=== PATIENT | female | born 1930 | race Caucasian/White ===

== ENCOUNTER → 2018-09-18 | Outpatient (CLI) | payer MEDICARE, BC | LOC: RAD 09:32 | PROVIDERS: ATTEND Family Medicine | DX: Z12.31 Encounter for screening mammogram for malignant neoplasm of breast (principal) | CPT/HCPCS: 77067 ==

== ENCOUNTER → 2019-09-21 | Outpatient (CLI) | payer MEDICARE, BC ==
--- NOTE | 2019-09-21 12:28 | Diagnostic Imaging Report ---
INDICATION: Routine screening. COMPARISON: Comparison is made with prior mammograms from 09/18/2018 and 08/28/2017. TECHNIQUE: 2-D and 3-D bilateral screening mammography was performed. The current study was also evaluated with a Computer Aided Detection (CAD) system. 3-D tomosynthesis was also performed and reviewed. FINDINGS: Both breasts are heterogeneously dense, limiting the sensitivity of mammography. There are benign calcifications in both breasts. No mass or malignant-appearing microcalcifications are seen. Axillae are unremarkable. IMPRESSION: No mammographic features suspicious for malignancy are identified. ACR BI-RADS Category 2: Benign findings. Result letter will be mailed to the patient. Note: At least 10% of breast cancer is not imaged by mammography. Dictated by: Dictated on workstation # [id number]
== END ==
LOC: RAD 09:44
PROVIDERS: ATTEND Family Medicine
DX: Z12.31 Encounter for screening mammogram for malignant neoplasm of breast (principal)
CPT/HCPCS: 77067

== ENCOUNTER → 2020-09-22 | Outpatient (CLI) | payer MEDICARE, BC ==
--- NOTE | 2020-09-22 14:53 | Diagnostic Imaging Report ---
INDICATION: Routine screening. Comparison is made with prior mammogram 09/21/2019 and 09/18/2018. 2-D and 3-D bilateral screening mammography was performed with CAD. Both breasts remain heterogeneously dense, limiting the sensitivity of mammography. There are scattered benign calcifications. No mass or malignant appearing microcalcifications are seen. Axillae are unremarkable. IMPRESSION: BI-RADS Category 2 No mammographic features suspicious for malignancy are identified. ACR BI-RADS Category 2: Benign findings. Result letter will be mailed to the patient. Note: At least 10% of breast cancer is not imaged by mammography. Dictated by: Dictated on workstation # [id number]
== END ==
LOC: RAD 10:09
PROVIDERS: ATTEND Family Medicine
DX: Z12.31 Encounter for screening mammogram for malignant neoplasm of breast (principal)
CPT/HCPCS: 77063; 77067

== ENCOUNTER → 2021-09-24 | Outpatient (CLI) | payer MEDICARE, BC ==
--- NOTE | 2021-09-24 11:49 | Diagnostic Imaging Report ---
INDICATION: Routine screening. Comparison is made with prior mammogram 09/22/2020 and 09/21/2019. 2-D and 3-D bilateral screening mammography was performed with CAD. Scattered fibroglandular densities are identified bilaterally. Benign calcifications are noted. No mass or malignant-appearing microcalcifications are seen. Axillae are unremarkable. IMPRESSION: No mammographic features suspicious for malignancy are identified. BI-RADS Category 2 ACR BI-RADS Category 2: Benign findings. Result letter will be mailed to the patient. Note: At least 10% of breast cancer is not imaged by mammography. Dictated by: Dictated on workstation # [id number]
== END ==
LOC: RAD 09:41
PROVIDERS: ATTEND Family Medicine
DX: Z12.31 Encounter for screening mammogram for malignant neoplasm of breast (principal)
CPT/HCPCS: 77063; 77067

== ENCOUNTER → 2022-03-08 | Outpatient (CLI) | payer MEDICARE, BC ==
--- NOTE | 2022-03-08 17:04 | Diagnostic Imaging Report ---
INDICATION: Pain, fall. COMPARISON: None available. TECHNIQUE: Two radiographs of the right hip dated March 08, 2022. FINDINGS: Moderate degenerative changes within the partially visualized lower lumbar spine. Mild degenerative changes involving the right sacroiliac joint. No acute fracture or dislocation. Severe degenerative changes of the right hip with severe superior joint space narrowing and sclerosis and irregularity of the articular surfaces. Mild osteophyte formation. The pubic symphysis is intact. IMPRESSION: No acute osseous abnormality with advanced degenerative changes, including severe degenerative changes involving the right hip and partially visualized right lower lumbar spine. Dictated by: Dictated on workstation # [id number]
== END ==
LOC: RAD 15:14
PROVIDERS: ATTEND Family Medicine
DX: M16.11 Unilateral primary osteoarthritis, right hip (principal); W19.XXXA Unspecified fall, initial encounter
CPT/HCPCS: 73502

== ENCOUNTER → 2022-03-19 | Outpatient (CLI) | payer MEDICARE, BC | LOC: ORTHO 12:40 | PROVIDERS: ATTEND Orthopaedic Surgery | DX: M16.11 Unilateral primary osteoarthritis, right hip (principal) | CPT/HCPCS: 99203 ==

== ENCOUNTER → 2022-03-19 | Outpatient (CLI) | payer MEDICARE, BC ==
--- NOTE | 2022-03-19 15:28 | Diagnostic Imaging Report ---
PROCEDURE: US right lower extremity venous. TECHNIQUE: Multiple real-time grayscale images were obtained over the right lower extremity in various projections. Additional spectral analysis and color Doppler duplex images were also obtained. INDICATION: Right lower leg swelling. FINDINGS: The unilateral right lower extremity venous Doppler ultrasound study was normal. There is patency of the femoropopliteal deep venous system showing normal color flow and normal compressibility. The major calf veins are also patent. No deep or superficial thrombus is identified. No fluid collection is demonstrated. IMPRESSION: Normal negative unilateral right lower extremity venous Doppler and ultrasound exam. Dictated by: Dictated on workstation # [id number]
== END ==
LOC: RAD 14:30
PROVIDERS: ATTEND Orthopaedic Surgery
DX: R22.41 Localized swelling, mass and lump, right lower limb (principal)

== ENCOUNTER → 2022-05-02 | Outpatient (CLI) | payer MEDICARE, BC ==
[2022-05-02 11:12] LABS: BASOPHILS % (AUTO) 0 % (0-10); EOSINOPHILS # (AUTO) 0.4 10^3/uL (0.0-0.3); EOSINOPHILS % (AUTO) 6 % (0-10); HEMATOCRIT 31 % (35-52); HEMOGLOBIN 10.3 g/dL (11.5-16.0); LYMPHOCYTES # (AUTO) 0.5 10^3/uL (1.0-4.0); LYMPHOCYTES % (AUTO) 9 % (12-44); MEAN CORPUSCULAR HEMOGLOBIN 28 pg (25-34); MEAN CORPUSCULAR HGB CONC 34 g/dL (32-36); MEAN CORPUSCULAR VOLUME 82 fL (80-99); MEAN PLATELET VOLUME 10.2 fL (9.0-12.2); MONOCYTES # (AUTO) 0.9 10^3/uL (0.0-1.0); MONOCYTES % (AUTO) 14 % (0-12); NEUTROPHILS # (AUTO) 4.3 10^3/uL (1.8-7.8); NEUTROPHILS % (AUTO) 71 % (42-75); PLATELET COUNT 397 10^3/uL (130-400); WHITE BLOOD COUNT 6.1 10^3/uL (4.3-11.0)
[2022-05-02 11:20] LABS: BILIRUBIN,URINE NEGATIVE (NEGATIVE); CLARITY,URINE CLEAR; COLOR,URINE YELLOW; GLUCOSE, URINE (UA) NEGATIVE (NEGATIVE); KETONES,URINE TRACE (NEGATIVE); LEUKOCYTE ESTERASE ,URINE NEGATIVE (NEGATIVE); NITRITE,URINE NEGATIVE (NEGATIVE); PH,URINE 7.5 (5-9); PROTEIN,URINE NEGATIVE (NEGATIVE)
[2022-05-02 11:30] LABS: CALCIUM 9.3 MG/DL (8.5-10.1); CREATININE SERUM 0.66 MG/DL (0.60-1.30); POTASSIUM 4.3 MMOL/L (3.6-5.0)
[2022-05-02 11:33] LABS: BACTERIA,URINE NEGATIVE /HPF
[2022-05-02 11:39] LABS: PROTHROMBIN TIME PATIENT 13.6 SEC (12.2-14.7)
--- NOTE | 2022-05-02 12:58 | Diagnostic Imaging Report ---
EXAMINATION: Chest 2 view HISTORY: PRE OP COMPARISON: None available. FINDINGS: Heart size and pulmonary vasculature are normal. The lungs are clear without consolidation, pleural effusion, or pneumothorax. Degenerative changes of the thoracic spine. Osseous structures are otherwise intact. IMPRESSION: 1. No acute radiographic abnormality in the chest. Dictated by: Dictated on workstation # [id number]
--- NOTE | 2022-05-02 16:12 | Diagnostic Imaging Report ---
INDICATION: Right hip pain. EXAMINATION: AP and oblique views of the right hip were obtained. COMPARISON: 03/08/2022. FINDINGS: No acute fracture is seen. There is advanced degenerative change of the right hip with severe joint space narrowing and osteophyte formation with subchondral sclerosis. There is partial collapse of the femoral head, underlying avascular necrosis cannot be excluded. IMPRESSION: Severe chronic change of the right hip with joint space narrowing and subchondral sclerosis and some femoral head irregularity and clots, this may be due to underlying degenerative change or underlying avascular necrosis. MRI may be helpful if clinically warranted. Dictated by: Dictated on workstation # [id number]
== END ==
LOC: ORTHO 09:46
PROVIDERS: ATTEND Orthopaedic Surgery
DX: Z01.818 Encounter for other preprocedural examination (principal); S72.001A Fracture of unspecified part of neck of right femur, initial encounter for closed fracture; X58.XXXA Exposure to other specified factors, initial encounter
CPT/HCPCS: 71046; 73502; 80048; 81000; 85025; 85610; 85730; 93005; G0463; 36415; 99213

== ENCOUNTER 2022-05-07 05:33 | Outpatient (CLI) | payer MEDICARE, BC ==
[~2022-05-07] VITALS: Ht 154.9 cm; Wt 47.2 kg
[2022-05-07] MEDS ORDERED: SIMV20TA26 PO (15:53)
[2022-05-07] MEDS ORDERED: AMLO-250 PO (15:53)
[2022-05-07] MEDS ORDERED: OMEP20CA18 PO (15:53)
[2022-05-07] MEDS ORDERED: LATA7.5D OP (15:53)
[2022-05-07] MEDS ORDERED: MUPI15CR11 TP (15:53)
[2022-05-07] MEDS ORDERED: TR1O15 TP (15:53)
[2022-05-07] MEDS ORDERED: BUME1TAB8 PO (15:53)
[2022-05-07] MEDS ORDERED: DORZ10DR8 OP (15:53)
[2022-05-07] MEDS ORDERED: PRD20T PO (15:53)
== END 2022-05-08 16:18 | disposition home or self-care (01) ==
LOC: PREOP 05:33
PROVIDERS: ATTEND Orthopaedic Surgery
DX: Z01.818 Encounter for other preprocedural examination (principal)

== ENCOUNTER 2022-05-13 07:44 | Day surgery (SDC) | payer MEDICARE, BC ==
[~2022-05-13] VITALS: Ht 154.9 cm; Wt 47.2 kg
[~2022-05-13 07:44] MED LIST: AMLO-250 PO; BUME1TAB8 PO; DORZ10DR8 OU; LATA7.5D OP; MUPI15CR11 TP; OMEP20CA18 PO; PRD20T PO; SIMV20TA26 PO; TR1O15 TP
[2022-05-13 07:50] VITALS: BP 170/72
[2022-05-13] MEDS ORDERED: TRANEXAMIC ACID 3,000 MG/150 ML NS IRRIGATION IR ONE ×2 (08:00)
[2022-05-13] MEDS ORDERED: ceFAZolin 1 GM/NS 50 ML (SDC/OR ONLY) IV ONE ×2 (08:15)
[2022-05-13] MEDS ORDERED: LACTATED RINGERS 1,000 ML IV PRN (08:45)
[2022-05-13] MEDS ORDERED: ceFAZolin INJECTION 1,000 MG in NS (IVPB) 50 ML IV ONE (08:45)
[2022-05-13] MEDS ORDERED: ONDANSETRON 4 MG/2 ML (SDV) Z0FRAN ONE (09:35)
[2022-05-13] MEDS ORDERED: LIDOCAINE PF 2% 5 ML (XYLOCAINE) VIAL ONE (09:35)
[2022-05-13] MEDS ORDERED: proPOfol 200 MG/20 ML (DIPRIVAN) VIAL IV ONE (09:35)
[2022-05-13] MEDS ORDERED: fentaNYL INJ 100 MCG/2 ML AMP ONE (09:35)
[2022-05-13] MEDS ORDERED: TRAM50TA3 PO (10:12)
== END 2022-05-13 10:15 | disposition home or self-care (01) ==
LOC: SDC 07:44 → EDSTATUS 11:10
PROVIDERS: ATTEND Orthopaedic Surgery
DX: M16.11 Unilateral primary osteoarthritis, right hip (principal); Z53.9 Procedure and treatment not carried out, unspecified reason
CPT/HCPCS: 86850; 86900; 86901; 87081

== ENCOUNTER → 2022-05-16 | Outpatient (CLI) | payer MEDICARE, BC ==
[~2022-05-16] MED LIST changes: +ASPI-1238 PO; +CALC600T91 PO; +GARL500C2 PO; +LATA2.5D19 OU; +MULT-1136 PO; +OXC5T PO; +TRAM50TA3 PO
== END | disposition home or self-care (01) ==
LOC: PREOP 05:31
PROVIDERS: ATTEND Orthopaedic Surgery
DX: Z01.818 Encounter for other preprocedural examination (principal)

== ENCOUNTER 2022-05-17 08:46 | Outpatient (RCR) | payer MEDICARE, BC ==
[2022-05-10 11:00] VITALS: BP 157/60
[~2022-05-17 08:46] MED LIST changes: -ASPI-1238 PO; -CALC600T91 PO; -GARL500C2 PO; +IRON SUCROSE 200 MG/10 ML (VENOFER) VIAL IV ONE; -LATA2.5D19 OU; -MULT-1136 PO; -OXC5T PO
[2022-05-17 09:12] VITALS: BP 139/67
[2022-05-17] MEDS ORDERED: IRON SUCROSE 200 MG/10 ML (VENOFER) VIAL IV ONE (09:15)
[2022-05-20] MEDS ORDERED: LATA2.5D19 OU (12:30)
[2022-05-20] MEDS ORDERED: MULT-1136 PO (12:30)
[2022-05-20] MEDS ORDERED: TRAM50TA3 PO (12:30)
[2022-05-20] MEDS ORDERED: CALC600T91 PO (12:30)
[2022-05-20] MEDS ORDERED: GARL500C2 PO (12:30)
[2022-05-22] MEDS ORDERED: OXC5T PO (10:23)
[2022-05-22] MEDS ORDERED: ASPI-1238 PO (10:23)
[2022-05-30] MEDS ORDERED: CYAN-41 PO (05:17)
[2022-05-30] MEDS ORDERED: CELE100C PO (05:17)
== END 2022-05-27 | disposition home or self-care (01) ==
LOC: SDC 08:46
PROVIDERS: ATTEND Family Medicine
DX: D50.8 Other iron deficiency anemias (principal)
CPT/HCPCS: 96365

== ENCOUNTER 2022-05-20 05:54 | Inpatient (IN) | payer MEDICARE, BC ==
[~2022-05-20] VITALS: Ht 152.4 cm; Wt 56.3 kg
[2022-05-20] VITALS (11 sets, daily range): BP systolic 148–178; BP diastolic 62–76
[~2022-05-20 05:54] MED LIST changes: -IRON SUCROSE 200 MG/10 ML (VENOFER) VIAL IV ONE
[2022-05-20] MEDS ORDERED: ceFAZolin INJECTION 1,000 MG in NS (IVPB) 50 ML IV ONE (06:30)
[2022-05-20] MEDS ORDERED: SODIUM CHLORIDE 0.9% IRRIGATIO 150 ML, TRANEXAMIC ACID INJECTION 3,000 MG IR ONE ×2 (07:00)
[2022-05-20] MEDS: LACTATED RINGERS 1,000 ML IV PRN ×2 (07:05→08:30)
--- NOTE | 2022-05-20 07:09 | Progress Note-Pre Operative ---
Pre-Operative Progress Note Date of Available H&P: May 20, 2022 Date H&P Reviewed: May 02, 2022 Time H&P Reviewed: 07:05 History & Physical: H&P Reviewed, Patient Examed, No changes noted Pre-Operative Diagnosis: Right Hip Primary Osteoarthritis NOAH FORRESTER MD May 20, 2022 07:09
[2022-05-20] MEDS ORDERED: fentaNYL INJ 100 MCG/2 ML AMP ONE (07:19)
[2022-05-20 07:30] LABS: POTASSIUM 3.7 MMOL/L (3.6-5.0)
[2022-05-20 07:31] LABS: CALCIUM 8.9 MG/DL (8.5-10.1)
[2022-05-20 07:35] LABS: CREATININE SERUM 0.63 MG/DL (0.60-1.30)
[2022-05-20] MEDS ORDERED: ROCURONIUM 10 MG/ML 5 ML SYRINGE IV ONE (08:05)
[2022-05-20] MEDS ORDERED: ONDANSETRON 4 MG/2 ML (SDV) Z0FRAN ONE (08:05)
[2022-05-20] MEDS ORDERED: proPOfol 200 MG/20 ML (DIPRIVAN) VIAL IV ONE (08:05)
[2022-05-20] MEDS ORDERED: LIDOCAINE PF 2% 5 ML (XYLOCAINE) VIAL ONE (08:05)
[2022-05-20] MEDS ORDERED: NEOSTIGMINE (BLOXIVERZ ) 1 MG/1ML 10 ML VIAL ONE (09:15)
[2022-05-20] MEDS ORDERED: GLYCOPYRROLATE 0.2 MG/ML (ROBINUL) 2 ML VIAL ONE (09:15)
[2022-05-20] MEDS ORDERED: ROPIVACAINE 5MG/ML 30ML VIAL ONE (09:31)
[2022-05-20] MEDS ORDERED: SEVOFLURANE (ULTANE) 15 ML INHAL SOLN ONE (09:33)
--- NOTE | 2022-05-20 09:38 | Operative Report - Ortho ---
Operative Report Surgeon (s)/Wringer And Setter (s) Surgeon NOAH FORRESTER MD Wringer And Setter n/a Pre-Operative Diagnosis Right Hip Primary Osteoarthritis Post-Operative Diagnosis same Operative Report Date of Procedure: May 20, 2022 Name of Procedure Performed: Right Total Hip Arthroplasty Description & Findings After obtaining informed consent and marking the patient in the preoperative holding area, the patient did receive antibiotics and was taken to the operating room. General anesthesia was induced and patient was positioned in the lateral decubitus position with the right side up. Right lower extremity was prepped and draped in the usual sterile fashion. Surgical timeout was taken. Posterolateral approach was utilized. Capsule and external rotators were taken down in one layer. Hip was dislocated without difficulty. Femoral neck osteotomy was performed and femoral head was removed. Acetabulum was exposed. Labrum and soft tissue was removed from the acetabulum. Sequential reaming was began beginning with a 42 mm reamer and reaming to a 46 mm. 46 mm trial was placed and had good fit. Trial was removed and the acetabulum was lavaged with normal saline; a 46 mm cup was impacted into place and had excellent press fit. A polyethylene liner was put into place and impacted to lock; locking was verified with a freer. Attention was turned to the femoral side, a cookie cutter osteotome was used to removed bone near the greater trochanter. Canal finder was inserted followed by the lateralizing reamer. Sequential broaching was began with a 0 and was broached to a 2. Trial 127 degree neck and neutral 28 mm head were put into place. Leg lengths were grossly equal; the hip was stable in position of sleep, and stable in flexion and internal rotation. This was accepted. Hip was dislocated. Trial components were removed and the canal was irrigated. A size 2 Accolade II was impacted into place and set at the same level as the broach. A neutral 28 mm metal head was impacted onto the arce taper of the stem. Hip was once again located and found to have grossly equal leg lengths with stability in position of sleep as well as flexion and internal rotation. Dilute betadine soak was performed. Hip was irrigated. Tranexamic acid was applied for hemostasis. The fascial layer was closed with #2 StrataFix. The subcutaneous layer was closed with 2-0 Vicryl. Skin was closed with joshua. Wound was dressed with xeroform, 4x4s, ABD, and tape. Patient was placed in abduction pillow and transferred to his hospital bed without difficulty and was stable to the recovery room. Anesthesia Type General Estimated Blood Loss minimal Specimen(s) collected/removed None NOAH FORRESTER MD May 20, 2022 09:38
[2022-05-20] MEDS ORDERED: ACETAMINOPHEN 500 MG TAB (TYLENOL) PO PRN (09:45)
[2022-05-20] MEDS ORDERED: ONDANSETRON 4 MG/2 ML (SDV) Z0FRAN IV PRN (09:45)
[2022-05-20] MEDS ORDERED: ceFAZolin INJECTION 1,000 MG in NS (IVPB) 50 ML IV SCH (09:45)
[2022-05-20] MEDS ORDERED: BISACODYL 5 MG (DULCOLAX) TABLET PO PRN (09:45)
[2022-05-20] MEDS ORDERED: 1/2 NS IV SOLUTION 1,000 ML IV ONE (11:12)
[2022-05-20] MEDS: morphine INJ 4 MG/ML 1 ML (VIAL/SYRINGE) IVP PRN ×4 (11:18→23:51)
[2022-05-20] MEDS: 1/2 NS IV SOLUTION 1,000 ML IV SCH (11:18)
[2022-05-20] MEDS ORDERED: FLU QUAD HIGH DOSE 240 MCG/0.7 ML 2022-23 (FLUZONE) IM ONE (11:45)
--- NOTE | 2022-05-20 11:59 | Physical Therapy Evaluation ---
PT Evaluation-General Medical Diagnosis Admission Date May 20, 2022 at 05:54 Medical Diagnosis: right SOPHIA Onset Date: May 20, 2022 Therapy Diagnosis Therapy Diagnosis: impaired mobility/weakness Precautions Precautions/Isolations: Fall Prevention, Standard Precautions Weight Bear Status Right Lower Extremity: Right Weight Bearing/Tolerated Left Lower Extremity: Left Full Weight Bearing Referral Physician: Roger Reason for Referral: Evaluation/Treatment Medical History Current History s/p elective right THR Reviewed History: Yes Social History Home: Single Level Current Living Status: Alone Entry Into Home: Stairs With Railing PT Steps Into Home: 2 Prior Prior Level of Function SCALE: Activities may be completed with or without assistive devices. 7-Tbuvxqymmz-covwvdm completes the activity by him/herself with no assistance from a helper. 5-Set-up or Clean-up Assistance-helper sets up or cleans up; patient completes activity. Verdon assists only prior to or following the activity. 4-Supervision or Touching Assistance-helper provides verbal cues and/or touching/steadying and/or contact guard assistance as patient completes activity. Assistance may be provided throughout the activity or intermittently. 3-Partial/Moderate Assistance-helper does LESS THAN HALF the effort. Verdon lifts, holds or supports trunk or limbs, but provides less than half the effort. 2-Substantial/Maximal Assistance-helper does MORE THAN HALF the effort. Verdon lifts or holds trunk or limbs and provides more than half the effort. 9-Rttgmvjsi-hnvlmd does ALL the effort. Patient does none of the effort to complete the activity. Or, the assistance of 2 or more helpers is required for the patient to complete the activity. If activity was not attempted, code reason: 7-Patient Refused. 9-Not Applicable-not attempted and the patient did not perform the activity before the current illness, exacerbation or injury. 10-Not Attempted due to Environmental Limitations-(lack of equipment, weather restraints, etc.). 88-Not Attempted due to Medical Conditions or Safety Concerns. Bed Mobility: 6 Transfers (B,C,W/C): 6 Gait: 6 Stairs: 6 Indoor Mobility (Ambulation): Independent Stairs: Independent Prior Devices Use: Walker PT Evaluation-Current Subjective Patient agrees to PT. Pain Numeric Pain Scale: 5-Moderate Pain Location: Right Location Body Site: Hip Pain Description: Acute Objective Patient Orientation: Normal For Age Attachments: Hart Catheter, IV ROM/Strength ROM Lower Extremities right hip precautions/left LE WFL Strength Lower Extremities right LE 3/5 grossly/left LE 3+/5 grossly Integumentary/Posture Integumentary refer to nursing notes Bladder Incontinence: Hart Cath Posture WFL Neuromuscular (Tone, Coordination, Reflexes) grossly intact Sensory Vision: Wears Glasses Hearing: Functional Transfers Lying to Sitting/Side of Bed(Q: 3 Sit to Stand (QC): 4 Chair/Obw-ka-Dsvup Xfer(QC): 4 Gait Mode of Locomotion: Walk Anticipated Mode of Locomotion: Walk Walk 10 feet (QC): 4 Walk 50 ft with 2 Turns(QC): 4 Distance: 50' Gait Assistive Device: FWW Comments/Gait Description slow, antalgic Balance Sitting Static: Normal Sitting Dynamic: Normal Standing Static: Fair Standing Dynamic: Fair Assessment/Needs Patient will benefit from skilled PT to address functional strength and mobility to improve current LOF. Patient is currently at minimal to CGA/SBA with all mobility Rehab Potential: Fair PT Retirement Goals Mines Inspector Goals PT Mines Inspector Goals Time Frame: Jun 08, 2022 Roll Left & Right (QC): 6 Sit to Lying (QC): 6 Lying-Sitting on Side/Bed(QC): 6 Sit to Stand (QC): 6 Chair/Nem-fs-Ijxlu Xfer(QC): 6 Toilet Transfer (QC): 6 Walk 10 feet (QC): 6 Walk 50ft with 2 Turns (QC): 6 Walk 150 ft (QC): 6 Walking 10ft on Uneven Surface: 6 1 Step (curb) (QC): 6 4 Steps (QC): 6 PT Plan Problem List Problem List: Activity Tolerance, Functional Strength, Safety, Balance, Gait, Transfer, Bed Mobility Treatment/Plan Treatment Plan: Continue Plan of Care Treatment Plan: Bed Mobility, Education, Functional Activity Keaton, Functional Strength, Gait, Safety, Therapeutic Exercise, Transfers Treatment Duration: Jun 08, 2022 Frequency: 11 times per week Estimated Hrs Per Day: .5 hour per day Patient and/or Family Agrees t: Yes Time/GCodes Time In: 1133 Time Out: 1150 Total Billed Treatment Time: 17 Total Billed Treatment 1 visit EVModC 17 min PETTY ARMIJO PT May 20, 2022 11:59
[2022-05-20] MEDS ORDERED: MULT-1136 PO (12:30)
[2022-05-20] MEDS ORDERED: LATA2.5D19 OU (12:30)
[2022-05-20] MEDS ORDERED: CALC600T91 PO (12:30)
[2022-05-20] MEDS ORDERED: GARL500C2 PO (12:30)
[2022-05-20] MEDS ORDERED: TRAM50TA3 PO (12:30)
[2022-05-20] MEDS: ceFAZolin INJECTION 1,000 MG in NS (IVPB) 50 ML IV SCH ×2 (14:29→21:15)
--- NOTE | 2022-05-20 15:38 | Diagnostic Imaging Report ---
INDICATION: Right hip pain. Postop. FINDINGS: AP pelvis. There is total arthroplasty of the right hip. Femoral and acetabular components are in good position. No bony fractures. There are skin joshua present. IMPRESSION: Satisfactory appearing post op arthroplasty right hip. Dictated by: Dictated on workstation # [id number]
[2022-05-20] MEDS: ASPIRIN E.C. 81 MG (ECOTRIN) TAB PO SCH (17:14)
[2022-05-20] MEDS ORDERED: PANTOPRAZOLE 20 MG TABLET (PROTONIX) PO SCH (18:00)
[2022-05-20] MEDS ORDERED: AtorvaSTATin TABLET 10 MG TABLET PO SCH (21:00)
[2022-05-20] MEDS: DOCUSATE SODIUM 100 MG (COLACE) CAP PO SCH (21:15)
[2022-05-20] MEDS: CELECOXIB 100 MG (CeleBREX) CAP PO SCH (21:15)
[2022-05-20] MEDS: DORZOLAMIDE 2% 10 ML BTL (TRUSOPT) OU SCH (21:16)
[2022-05-20] MEDS: LATANOPROST 0.005% (XALATAN) OPHTH SOLN 2.5 ML OU SCH (21:16)
[2022-05-20] MEDS: TIMOLOL MALEATE 0.5% 5 ML (TIMOPTIC) BTL OU SCH (21:16)
[2022-05-21 00:30] VITALS: BP 133/63
[2022-05-21] MEDS: 1/2 NS IV SOLUTION 1,000 ML IV SCH (01:58)
[2022-05-21 03:55] VITALS: BP 138/65
[2022-05-21 05:42] LABS: HEMOGLOBIN 8.8 g/dL (11.5-16.0)
[2022-05-21] MEDS: MULTIVIT W/MINERALS TAB (THERAGRAN M) PO SCH (06:16)
[2022-05-21 08:10] VITALS: BP 157/71
--- NOTE | 2022-05-21 08:28 | Progress Note - Ortho ---
Progress Note Subjective Date of Exam 05/21/22 Chief Complaint POD #1 R SOPHIA HPI/Events since last exam has some ongoing pain, overall doing okay, concerned about BM Review of Systems - Allergies: Coded Allergies: codeine (Verified Allergy, Unknown, VOMITS, 05/08/22) Home Meds Reported Medications Garlic (Garlic) 500 Mg Capsule, 500 MG PO DAILY, CAP 05/20/22 Calcium Carbonate (Calcium) 600 Mg Calcium (1500 Mg) Tablet, 600 MG PO DAILY, TAB 05/20/22 Multivitamin (Multivitamin) 1 Each Tablet, 1 EACH PO DAILY, TAB 05/20/22 Latanoprost (Xalatan) 0.005 % Drops, 1 DROP OU HS, DROPS 05/20/22 Tramadol HCl (Tramadol HCl) 50 Mg Tablet, 50 MG PO Q6H PRN for PAIN-MODERATE (5- 7), TAB 05/20/22 Simvastatin (Simvastatin) 20 Mg Tablet, 20 MG PO HS, TAB 05/07/22 Omeprazole (Omeprazole) 20 Mg Capsule.dr, 20 MG PO BID WITH MEALS, CAP 05/07/22 Dorzolamide HCl/Timolol Maleat (Dorzolamide-Timolol Eye Drops) 22.3 Mg-6.8 Mg/Ml Drops, 1 DROP OU BID, DROPS 05/07/22 Amlodipine Besylate (Amlodipine Besylate) 5 Mg Tablet, 5 MG PO DAILY, TAB 05/07/22 Discontinued Reported Medications Latanoprost/Pf (Latanoprost 0.005% Eye Drop) 0.005 % Drops, 7.5 ML OP UD, DROPS 05/07/22 Discontinued Scripts Tramadol HCl (Tramadol HCl) 50 Mg Tablet, 50 MG PO Q6H for Severe Pain for 7 Days, #28 TAB 0 Refills Prov:NOAH FORRESTER MD 05/13/22 Objective Exam R Leg: Dressing C/D/I, +DF of ankle, no s/s of DVT Vital Signs Vital Signs Date Time Temp Pulse Resp B/P (MAP) Pulse Ox O2 Delivery O2 Flow Rate FiO2 05/21/22 08:10 37.2 74 18 157/71 (99) 99 Room Air 05/21/22 03:55 37.0 73 20 138/65 (89) 96 Room Air 05/21/22 00:30 37.8 71 22 133/63 (86) 96 Room Air 05/21/22 00:21 37.7 05/20/22 21:45 37.7 05/20/22 19:24 37.7 74 20 163/72 (102) 96 Room Air 05/20/22 16:24 37.5 73 18 148/64 (92) 97 Room Air 05/20/22 15:30 36.4 61 18 156/70 (98) 95 Room Air 2.00 2.00 05/20/22 11:58 36.4 61 18 156/70 (98) 95 Room Air 05/20/22 10:20 Room Air 05/20/22 10:15 36.5 14 166/66 (99) 99 Room Air 05/20/22 10:10 16 160/72 (101) 98 Room Air 05/20/22 10:05 Room Air 05/20/22 10:00 20 168/72 (104) 100 Room Air 05/20/22 09:50 16 159/67 (97) 100 OxyMask 2.00 05/20/22 09:49 OxyMask 2.00 05/20/22 09:40 12 170/68 (102) 100 OxyMask 4.00 05/20/22 09:34 OxyMask 6.00 05/20/22 09:34 36.4 12 178/76 (110) 100 OxyMask 6.00 I & O 05/21/22 07:00 Intake Total 3000 ml Output Total 1125 ml Balance 1875 ml Lab Results Laboratory Tests 05/21/22 05:11: Hemoglobin 8.8L, Hematocrit 26L Imaging Postop AP pelvis demonstrated right total hip arthroplasty with components in good position and without complication Assessment and Plan Assessment Right Hip Primary OA s/p R SOPHIA Problem List Right Hip Primary OA s/p R SOPHIA Plan PT/OT DVT Prophylaxis Possible need for extended care/rehab Final Diagonsis Right Hip Primary OA s/p R SOPHIA Level of the visit: Level 3 (postop global) NOAH FRORESTER MD May 21, 2022 08:27
[2022-05-21] MEDS ORDERED: [UNRECOGNIZED DRUG - REMARK] PO SCH (09:00)
[2022-05-21] MEDS ORDERED: amLODIPine 5 MG (NORVASC) TAB PO SCH (09:00)
[2022-05-21] MEDS ORDERED: OMEPRAZOLE 20MG CAPSULE PO SCH (09:00)
[2022-05-21] MEDS ORDERED: AMLODIPINE 5MG TABLET PO SCH (09:00)
[2022-05-21] MEDS ORDERED: OMEPRAZOLE 20 MG (PriLOSEC) CAP NON-FORMULARY PO SCH (09:00)
[2022-05-21] MEDS ORDERED: NON-FORMULARY MEDICATION 1 EA EA PO SCH (09:00)
[2022-05-21] MEDS: DOCUSATE SODIUM 100 MG (COLACE) CAP PO SCH ×2 (09:49→19:51)
[2022-05-21] MEDS: ASPIRIN E.C. 81 MG (ECOTRIN) TAB PO SCH ×2 (09:50→19:14)
[2022-05-21] MEDS: CELECOXIB 100 MG (CeleBREX) CAP PO SCH ×2 (09:50→19:52)
[2022-05-21] MEDS: amLODIPine 5 MG (NORVASC) TAB PO SCH (09:50)
[2022-05-21] MEDS: TIMOLOL MALEATE 0.5% 5 ML (TIMOPTIC) BTL OU SCH ×2 (09:52→19:48)
[2022-05-21] MEDS: DORZOLAMIDE 2% 10 ML BTL (TRUSOPT) OU SCH ×2 (09:52→19:48)
[2022-05-21] MEDS: MILK OF MAGNESIA 400 MG/5 ML 30 ML UDC PO PRN ×2 (09:56→20:01)
--- NOTE | 2022-05-21 10:08 | Progress Note ---
CANNATASHA 05/21/22 1008: Progress Note CC: Right Total Hip Arthroplasty 89yo F with h/o primary osteoarthritis of the right hip was admitted to the floor following a right total hip arthroplasty on 05/20. Pt was scheduled for an elective right hip arthroplasty due to continued pain from a fall in her driveway 6mos ago. Pt initially was treated with cortisone injections and OTC pain medications but pain has persisted. Pt had imaging of the right hip on that was reviewed by ortho and demonstrated severe degenerative change with complete loss of articular space and degenerative collapse of the femoral head. Pt had a successful surgery yesterday and has been admitted to inpatient therapy for PT/OT today as she lives alone with no assistance. Prior to surgery, pt had been using a walker. Today, pt is sitting in chair comfortably. Pt did experience an episode of emesis with eating today. Otherwise, pt has no complaints. Pt has not had a BM yet. Pt denies current nausea and vomiting, CP, SOA, abd pain, and diarrhea. Pt has been admitted to inpatient rehab for PT/OT. 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 -Hard of Hearing B/L -Chronic Dry eye Meds: Garlic (Garlic) 500 Mg Capsule, 500 MG PO DAILY, CAP Calcium Carbonate (Calcium) 600 Mg Calcium (1500 Mg) Tablet, 600 MG PO DAILY, TAB Multivitamin (Multivitamin) 1 Each Tablet, 1 EACH PO DAILY, TAB Latanoprost (Xalatan) 0.005 % Drops, 1 DROP OU HS, DROPS Tramadol HCl (Tramadol HCl) 50 Mg Tablet, 50 MG PO Q6H PRN for PAIN-MODERATE (5- 7), TAB Simvastatin (Simvastatin) 20 Mg Tablet, 20 MG PO HS, TAB Omeprazole (Omeprazole) 20 Mg Capsule.dr, 20 MG PO BID WITH MEALS, CAP Dorzolamide HCl/Timolol Maleat (Dorzolamide-Timolol Eye Drops) 22.3 Mg-6.8 Mg/Ml Drops, 1 DROP OU BID, DROPS Amlodipine Besylate (Amlodipine Besylate) 5 Mg Tablet, 5 MG PO DAILY, TAB Allergies: Codeine FH: Mother - malignant tumor of breast SxH: -Right hip arthroplasty 05/20/22 -Bladder surgery -Cataract surgery R eye Labs: 05/21: CBC: -Hgb: 8.8 -Hct: 26 CMP: -Na: 134 -K: 3.7 -BUN:10 -Cr:.63 -Glucose: 105 Imaging: NAME: [facility] REC#: [id number] PT STATUS: ADM IN : 1930 PHYSICIAN: NOAH FORRESTER MD ADMIT DATE: 05/20/22 Signed Date of Exam:05/20/22 PELVIS 1 TO 2 VIEWS INDICATION: Right hip pain. Postop. FINDINGS: AP pelvis. There is total arthroplasty of the right hip. Femoral and acetabular components are in good position. No bony fractures. There are skin joshua present. IMPRESSION: Satisfactory appearing post op arthroplasty right hip. Dictated by: Dictated on workstation # [id number] Dict: 05/20/22 1535 Trans: 05/20/[address] [place] [address] [id number] Interpreted by: MIRELLA GUY MD Electronically signed by: MIRELLA GUY MD 05/20/22 1640 VS: T: 37.2 Pulse: 74 RR: 18 BP: 157/71 O2 sat: 99 RA Cardio: -HRRR, no murmurs Pulm: -CTAB, no respiratory distress or accessory muscle use Extremities: -intact peripheral pulses - RLE swelling and trace swelling on LLE, bandage present on R Hip Abd: -soft and non-tender to palpation Psych: -normal affect -normal mentation Assessment: 1. S/p right hip arthroplasty day #1 -performed by Dr. Forrester on 05/20 2. Osteoarthritis of Right hip -Diagnosed on 03/19/22 3. Post operative anemia -Hgb at 8.8 4. Post operative pain - well controlled with pain medications prn 5. Post operative nausea -pt has had increased nausea resulting in emesis today, resolved. 6. Post operative vomiting -see above 7. Hyponatremia -Na at 134 8. GERD -takes omeprazole BID at home 9. Glaucoma -followed by Dr. Stuart - managed with Timolol and Latanoprost at home 10. Chronic Dry Eye -see above 11. h/o vision loss in R eye -following cataract surgery in 2014 12. R Cataract -surgically treated 13. HTN -controlled in Calcium carbonate 600mg PO and Amlodipine 5mg PO 14. HLD -controlled on 20mg PO Simvastatin Plan: Admit to inpatient rehab for PT/OT DVT prophylaxis Pain medication prn Anti-emetics prn IV NS Fluids Continue to monitor hgb DANIELA HIGH DO 05/22/2226: Supervisory-Addendum Brief Verification & Attestation Participated in pt care: history, MDM, physical Personally performed: exam, history, MDM, supervision of care Care discussed with: Medical Student Procedures: n/a Results interpretation: Verified all documentation Verification and Attestation of Medical Student E/M Service A medical student performed and documented this service in my presence. I reviewed and verified all information documented by the medical student and made modifications to such information, when appropriate. I personally performed the physical exam and medical decision making. Daniela High, May 22, 2022,05:26 NATASHA NORTH May 21, 2022 10:08 DANIELA HIGH DO May 22, 2022 05:26
[2022-05-21 11:50] VITALS: BP 125/67
--- NOTE | 2022-05-21 13:52 | Occupational Therapy Eval ---
OT Evaluation-General/PLF Medical Diagnosis Admission Date May 20, 2022 at 05:54 Medical Diagnosis: right SOPHIA Onset Date: May 20, 2022 Therapy Diagnosis Therapy Diagnosis: decreased ADL status Precautions Precautions/Isolations: Fall Prevention, Standard Precautions Weight Bear Status Weight Bearing Restriction: Weight Bearing/Tolerated Location Restriction: R LE Referral Physician: Roger Referral Reason: Evaluation/Treatment Medical History Current History s/p elective SOPHIA 05/20/22 Social History Home: Single Level Current Living Status: Alone Entry Into Home: Stairs With Railing Steps Into Home: 2 ADL-Prior Level of Function SCALE: Activities may be completed with or without assistive devices. 2-Rhydywzrmw-aukijzq completes the activity by him/herself with no assistance from a helper. 5-Set-up or Clean-up Assistance-helper sets up or cleans up; patient completes activity. [place] assists only prior to or following the activity. 4-Supervision or Touching Assistance-helper provides verbal cues and/or touching/steadying and/or contact guard assistance as patient completes activit y. Assistance may be provided throughout the activity or intermittently. 3-Partial/Moderate Assistance-helper does LESS THAN HALF the effort. [place] lifts, holds or supports trunk or limbs, but provides less than half the effort. 2-Substantial/Maximal Assistance-helper does MORE THAN HALF the effort. [place] lifts or holds trunk or limbs and provides more than half the effort. 2-Wmwxnjrqs-tyuowy does ALL the effort. Patient does none of the effort to complete the activity. Or, the assistance of 2 or more helpers is required for the patient to complete the activity. If activity was not attempted, code reason: 7-Patient Refused. 9-Not Applicable-not attempted and the patient did not perform the activity before the current illness, exacerbation or injury. 10-Not Attempted due to Environmental Limitations-(lack of equipment, weather restraints, etc.). 88-Not Attempted due to Medical Conditions or Safety Concerns. ADL PLOF Comments Pt reports IND with ADLs and functional mobility at PLOF using a walker. She has a tub/shower with SC, and raised toilet seat Self Care: Independent Functional Cognition: Independent DME/Equipment: Bath Chair, Tall Toilet, Tub/Shower OT Current Status Subjective Pt up in recliner, agreeable to OT tx. Pt hyperverbal throughout tx, requiring redirection to topic/task. Mental Status/Objective Patient Orientation: Person, Place, Time, Situation Current Upper Extremity ROM WFL, BUE shoulder flexion to approx 140 degrees Upper Extremity Coordination WFL Upper Extremity Strength grossly 3+/5 ADL-Treatment Eating (QC): 6 (Per nursing report.) Oral Hygiene (QC): 5 (Per clinical judgment.) Lower Body Dressing (QC): 3 (Min A donning underwear using AE.) On/Off Footwear (QC): 3 (Min A donning/doffing gripper socks using AE.) Other Treatments Pt up in recliner, agreeable to OT tx. Pt provided information about PLOF and home set up and participated in UE screen. Pt educated on AE for LE dressing. A ble to doff/don gripper socks using dressing stick and sock aide, min A. Pt able to don underwear using dressing stick, min A. SBA for sit to/from stand. Pt very talkative throughout tx, often talking about other subjects, requiring redirection to task. Pt has thought about going to [facility] if she feels like she is unable to care for herself at home. Post tx, pt in recliner, call light in reach and all needs met. Education OT Patient Education: Correct positioning, Energy conservation, Modified ADL techniques, Progress toward Goal/Update tx plan, Purpose of tx/functional activities, Rehab process, Use of adapted equipment Teaching Recipient: Patient Teaching Methods: Discussion Response to Teaching: Verbalize Understanding OT Pig Conveyor Operator Goals Mcfp Goals Time Frame: May 31, 2022 Eating (QC): 6 Oral Hygiene (QC): 6 Toileting Hygiene (QC): 6 Shower/Bathe Self (QC): 4 Upper Body Dressing (QC): 5 Lower Body Dressing (QC): 4 On/Off Footwear (QC): 4 Additional Goals: 1-Demonstrate ADL Tasks, 2-Verbalize Understanding, 3- ImproveStrength/[place] 1=Demonstrate adherence to instructed precautions during ADL tasks. 2=Patient will verbalize/demonstrate understanding of assistive devices/modifications for ADL. 3=Patient will improve strength/tolerance for activity to enable patient to perform ADL's. OT Education/Plan Problem List/Assessment Assessment: Decreased Activ Tolerance, Decreased UE Strength, Impaired Funct B alance, Impaired I ADL's, Impaired Self-Care Skills Pt would benefit from short term skilled OT services in order to increase BUE strength and activity tolerance, increase safety and independence with ADLs and functional mobility, and for further education on AE for LE dressing in order to maximize LOF for safe return home. Discharge Recommendations Plan/Recommendations: Continue POC Equpiment Recommendations-D/C: Hip Kit Treatment Plan/Plan of Care Patient would benefit from OT for education, treatment and training to promote independence in ADL's, mobility, safety and/or upper extremity function for ADL's. Plan of Care: ADL Retraining, Functional Mobility, UE Funct Exercise/Act Treatment Duration: May 31, 2022 Frequency: 3 times per week (3-5 times per week) Rehab Potential: Fair Time/GCodes Start Time: 13:12 Stop Time: 13:44 Total Time Billed (hr/min): 32 Billed Treatment Time 1, EVL (10'), ADL (22') LUISA DEWEY OT May 21, 2022 13:52
--- NOTE | 2022-05-21 14:17 | Physical Therapy Daily Note ---
PT Daily Note-Current Subjective Patient agrees to PT. Pain Numeric Pain Scale: 5-Moderate Pain Location: Right Location Body Site: Hip Pain Description: Acute Section J - Health Conditions 1. Rarely or not at all 2. Occasionally 3. Frequently 4. Almost constantly 8. Unable to answer Pain Effect on Sleep: 1 Pain Interference with Therapy: 1 Pain Interference w/Day-to-Day: 1 Mental Status Patient Orientation: Normal For Age Transfers SCALE: Activities may be completed with or without assistive devices. 7-Zsbwnfxwnq-pwpispl completes the activity by him/herself with no assistance from a helper. 5-Set-up or Clean-up Assistance-helper sets up or cleans up; patient completes activity. [place] assists only prior to or following the activity. 4-Supervision or Touching Assistance-helper provides verbal cues and/or touching/steadying and/or contact guard assistance as patient completes activity. Assistance may be provided throughout the activity or intermittently. 3-Partial/Moderate Assistance-helper does LESS THAN HALF the effort. [place] lifts, holds or supports trunk or limbs, but provides less than half the effort. 2-Substantial/Maximal Assistance-helper does MORE THAN HALF the effort. [place] lifts or holds trunk or limbs and provides more than half the effort. 3-Bjymsvczt-wuzesq does ALL the effort. Patient does none of the effort to complete the activity. Or, the assistance of 2 or more helpers is required for the patient to complete the activity. If activity was not attempted, code reason: 7-Patient Refused. 9-Not Applicable-not attempted and the patient did not perform the activity before the current illness, exacerbation or injury. 10-Not Attempted due to Environmental Limitations-(lack of equipment, weather restraints, etc.). 88-Not Attempted due to Medical Conditions or Safety Concerns. Sit to Stand (QC): 4 Weight Bearing Right Lower Extremity: Right Weight Bearing/Tolerated Left Lower Extremity: Left Full Weight Bearing Gait Training Distance: 175' Walk 10 feet (QC): 4 Walk 50 ft with 2 Turns(QC): 4 Walk 150 ft (QC): 4 Gait Assistive Device: FWW slow, antalgic gait sequence Exercises Supine Ex: Ankle pumps, Quad Set, Heel Slides Supine Reps: 12 (in recliner with bilateral LE elevated) Seated Therapy Exercises: Long arc quads Seated Reps: 15 Assessment Patient progressing with treatment plan. Patient improving with functional mobility and strength PT Assisted Goals Assisted Goals PT Assisted Goals Time Frame: Jun 08, 2022 Roll Left & Right (QC): 6 Sit to Lying (QC): 6 Lying-Sitting on Side/Bed(QC): 6 Sit to Stand (QC): 6 Chair/Jed-ak-Xhysw Xfer(QC): 6 Toilet Transfer (QC): 6 Walk 10 feet (QC): 6 Walk 50ft with 2 Turns (QC): 6 Walk 150 ft (QC): 6 Walking 10ft on Uneven Surface: 6 1 Step (curb) (QC): 6 4 Steps (QC): 6 PT Plan Treatment/Plan Treatment Plan: Continue Plan of Care Treatment Plan: Bed Mobility, Education, Functional Activity Ke[place], Functional Strength, Gait, Safety, Therapeutic Exercise, Transfers Treatment Duration: Jun 08, 2022 Frequency: 11 times per week Estimated Hrs Per Day: .5 hour per day Patient and/or Family Agrees t: Yes Time Time In: 1345 Time Out: 1408 Total Billed Treatment Time: 23 Total Billed Treatment 1 visit EX 10 min GT 13 min PETTY ARMIJO PT May 21, 2022 14:17
[2022-05-21] MEDS: OMEPRAZOLE 20 MG (PriLOSEC) CAP NON-FORMULARY PO SCH (15:27)
[2022-05-21 15:52] VITALS: BP 135/62
[2022-05-21 19:32] VITALS: BP 142/62
[2022-05-21] MEDS: LATANOPROST 0.005% (XALATAN) OPHTH SOLN 2.5 ML OU SCH (19:53)
[2022-05-21] MEDS ORDERED: DORZOLAMIDE/TIMOLOL (COSOPT) 2-0.68% 10 ML BTL OP SCH (21:00)
[2022-05-21] MEDS ORDERED: SIMVASTATIN 20 MG PO SCH (21:00)
[2022-05-22 00:56] VITALS: BP 145/58
[2022-05-22 03:43] VITALS: BP 156/62
[2022-05-22 05:31] LABS: HEMOGLOBIN 9.2 g/dL (11.5-16.0)
[2022-05-22] MEDS: OMEPRAZOLE 20 MG (PriLOSEC) CAP NON-FORMULARY PO SCH (06:07)
[2022-05-22] MEDS: MULTIVIT W/MINERALS TAB (THERAGRAN M) PO SCH (06:08)
[2022-05-22 07:59] VITALS: BP 152/65
[2022-05-22] MEDS: DOCUSATE SODIUM 100 MG (COLACE) CAP PO SCH (08:58)
[2022-05-22] MEDS: CELECOXIB 100 MG (CeleBREX) CAP PO SCH (08:58)
[2022-05-22] MEDS: ASPIRIN E.C. 81 MG (ECOTRIN) TAB PO SCH (08:58)
[2022-05-22] MEDS: amLODIPine 5 MG (NORVASC) TAB PO SCH (08:59)
[2022-05-22] MEDS ORDERED: [UNRECOGNIZED DRUG - REMARK] PO SCH (09:00)
[2022-05-22] MEDS ORDERED: DORZOLAMIDE/TIMOLOL (COSOPT) 2-0.68% 10 ML BTL OP SCH (09:00)
--- NOTE | 2022-05-22 09:45 | Physical Therapy Daily Note ---
PT Daily Note-Current Subjective Patient in recliner pre tx, agrees to PT, has 2/10 pain in right hip when sitting, 6/10 pain in right hip when standing. Pain Section J - Health Conditions 1. Rarely or not at all 2. Occasionally 3. Frequently 4. Almost constantly 8. Unable to answer Pain Effect on Sleep: 1 Pain Interference with Therapy: 1 Pain Interference w/Day-to-Day: 1 Mental Status Patient Orientation: Person, Place, Situation Transfers SCALE: Activities may be completed with or without assistive devices. 6-Sprylfwhaz-srtgnjc completes the activity by him/herself with no assistance from a helper. 5-Set-up or Clean-up Assistance-helper sets up or cleans up; patient completes activity. [place] assists only prior to or following the activity. 4-Supervision or Touching Assistance-helper provides verbal cues and/or yadi moustapha/steadying and/or contact guard assistance as patient completes activity. Assistance may be provided throughout the activity or intermittently. 3-Partial/Moderate Assistance-helper does LESS THAN HALF the effort. [place] lifts, holds or supports trunk or limbs, but provides less than half the effort. 2-Substantial/Maximal Assistance-helper does MORE THAN HALF the effort. [place] lifts or holds trunk or limbs and provides more than half the effort. 4-Hlgozzzgd-gfkdnc does ALL the effort. Patient does none of the effort to complete the activity. Or, the assistance of 2 or more helpers is required for the patient to complete the activity. If activity was not attempted, code reason: 7-Patient Refused. 9-Not Applicable-not attempted and the patient did not perform the activity before the current illness, exacerbation or injury. 10-Not Attempted due to Environmental Limitations-(lack of equipment, weather restraints, etc.). 88-Not Attempted due to Medical Conditions or Safety Concerns. Sit to Stand (QC): 4 Chair/Jad-qy-Tobfr Xfer(QC): 4 SBA Weight Bearing Right Lower Extremity: Right Weight Bearing/Tolerated Left Lower Extremity: Left Full Weight Bearing Gait Training Distance: 300' Walk 10 feet (QC): 4 Walk 50 ft with 2 Turns(QC): 4 Walk 150 ft (QC): 4 Gait Persons Needed: 1 Gait Assistive Device: FWW SBA, slow ambulation, good step through Exercises Supine Ex: Ankle pumps, Glut sets, Heel Slides Supine Reps: 15 (done in recliner with legs elevated) Treatments transfers, ambulation, LE ROM Assessment Current Status: Fair Progress improving endurance PT [facility] Goals [facility] Goals PT [facility] Goals Time Frame: Jun 08, 2022 Roll Left & Right (QC): 6 Sit to Lying (QC): 6 Lying-Sitting on Side/Bed(QC): 6 Sit to Stand (QC): 6 Chair/Ptp-ld-Zvsih Xfer(QC): 6 Toilet Transfer (QC): 6 Walk 10 feet (QC): 6 Walk 50ft with 2 Turns (QC): 6 Walk 150 ft (QC): 6 Walking 10ft on Uneven Surface: 6 1 Step (curb) (QC): 6 4 Steps (QC): 6 PT Plan Problem List Problem List: Activity Tolerance, Functional Strength, Safety, Balance, Gait, Transfer, Bed Mobility, ROM Treatment/Plan Treatment Plan: Continue Plan of Care Treatment Plan: Bed Mobility, Education, Functional Activity [place], Functional Strength, Gait, Safety, Therapeutic Exercise, Transfers Treatment Duration: Jun 08, 2022 Frequency: 11 times per week Estimated Hrs Per Day: .5 hour per day Patient and/or Family Agrees t: Yes Safety Risks/Education Patient Education: Gait Training, Transfer Techniques, Correct Positioning, Safety Issues Teaching Recipient: Patient Teaching Methods: Demonstration, Discussion Response to Teaching: Reinforcement Needed Time Time In: 914 Time Out: 925 Total Billed Treatment Time: 11 Total Billed Treatment 1 visit FA 11' GUALBERTO TALBERT PT May 22, 2022 09:44
[2022-05-22] MEDS ORDERED: OXC5T PO (10:23)
[2022-05-22] MEDS ORDERED: ASPI-1238 PO (10:23)
--- NOTE | 2022-05-22 10:26 | Discharge Summary ---
Discharge Summary Hospital Course Hospital Course Date of Admission: May 20, 2022 at 05:54 Admission Diagnosis : Right Hip Primary Osteoarthritis Family Physician/Provider: Srikanth Barron MD Date of Discharge: 05/22/22 Discharge Diagnosis: [ Right Hip Primary Osteoarthritis s/p R SOPHIA] Hospital Course: [ On 05/20/22, patient underwent right total hip arthroplasty. Postoperatively, admitted to the regular floor. Mechanical DVT prophylaxis was began. Began to mobilize that afternoon. On POD #1, had some difficulty with pain control. Made progress with therapy. Arrangements were made for inpatient rehab. On POD #2, pain control was improved and was improved with ambulation. Tolerating a regular diet. Ready for transfer to rehab unit.] Labs and Pending Lab Test: Laboratory Tests 05/22/22 05:13: Hemoglobin 9.2L, Hematocrit 27L Home Meds Active Reported Garlic 500 Mg Capsule 500 Mg PO DAILY Calcium (Calcium Carbonate) 600 Mg Calcium (1500 Mg) Tablet 600 Mg PO DAILY Multivitamin 1 Each Tablet 1 Each PO DAILY Xalatan (Latanoprost) 0.005 % Drops 1 Drop OU HS Tramadol HCl 50 Mg Tablet 50 Mg PO Q6H PRN Simvastatin 20 Mg Tablet 20 Mg PO HS Omeprazole 20 Mg Capsule.dr 20 Mg PO BID WITH MEALS Dorzolamide-Timolol Eye Drops (Dorzolamide HCl/Timolol Maleat) 22.3 Mg-6.8 Mg/Ml Drops 1 Drop OU BID Amlodipine Besylate 5 Mg Tablet 5 Mg PO DAILY Assessment/Pt Instructions WBAT on right leg. Walker for assist. Posterior hip precautions. Dry dressing daily. Discharge Physical Examination Vital Signs Vital Signs Date Time Temp Pulse Resp B/P (MAP) Pulse Ox O2 Delivery O2 Flow Rate FiO2 05/22/22 09:00 Room Air 05/22/22 07:59 36.1 76 18 152/65 (94) 98 05/20/22 15:30 2.00 2.00 Extremity: Other (R Hip: Dressing C/D/I, +DF of ankle, no s/s of DVT) Allergies: Coded Allergies: codeine (Verified Allergy, Unknown, VOMITS, 05/08/22) Discharge Summary Date of Admission May 20, 2022 at 05:54 Date of Discharge NOAH FORRESTER MD May 22, 2022 10:26
== END 2022-05-22 11:26 | DRG 470 ==
LOC: 4TH 05:54 → SURG 05:55 → 4TH 10:32
PROVIDERS: ADMIT Orthopaedic Surgery; ATTEND Orthopaedic Surgery
PROC: 0SR902A Replacement of Right Hip Joint with Metal on Polyethylene Synthetic Substitute, Uncemented, Open Approach (ICD-10-PCS; principal; 2022-05-20 07:28)
DX: M16.11 Unilateral primary osteoarthritis, right hip (principal); E87.1 Hypo-osmolality and hyponatremia; Z66 Do not resuscitate; K21.9 Gastro-esophageal reflux disease without esophagitis; I10 Essential (primary) hypertension; D64.89 Other specified anemias; H40.9 Unspecified glaucoma; H91.90 Unspecified hearing loss, unspecified ear; H04.129 Dry eye syndrome of unspecified lacrimal gland; E78.5 Hyperlipidemia, unspecified; H54.61 Unqualified visual loss, right eye, normal vision left eye; Z79.899 Other long term (current) drug therapy; Z88.5 Allergy status to narcotic agent
CPT/HCPCS: 36415; 72170; 80048; 85014; 85018

== ENCOUNTER 2022-05-21 09:33 | Inpatient (IN) | payer MEDICARE, BC ==
[~2022-05-21] VITALS: Ht 152.4 cm; Wt 45.0 kg
[~2022-05-21 09:33] MED LIST changes: +CALC600T91 PO; +GARL500C2 PO; +LATA2.5D19 OU; +MULT-1136 PO
[2022-05-21] MEDS ORDERED: BISACODYL 10 MG SUPP (DULCOLAX) PR PRN (09:45)
[2022-05-21] MEDS ORDERED: ONDANSETRON 4 MG (ZOFRAN) ORAL DISSOLVE TAB PO PRN (09:45)
[2022-05-21] MEDS ORDERED: DOCUSATE SODIUM 100 MG (COLACE) CAP PO PRN (09:45)
[2022-05-21] MEDS ORDERED: LOPERAMIDE 2 MG (IMODIUM) TABLET PO PRN (09:45)
[2022-05-21] MEDS ORDERED: guaiFENesin/CODEINE (ROBITUSSIN AC) 10ML UDC PO PRN (09:45)
[2022-05-21] MEDS ORDERED: ALPRAZolam 0.25 MG (XANAX) TAB PO PRN (09:45)
[2022-05-21] MEDS ORDERED: CALCIUM CARBONATE 500 MG (TUMS) TAB.CHEW PO PRN (09:45)
[2022-05-21] MEDS ORDERED: diphenhydrAMINE 25 MG TAB (BENADRYL) PO PRN (09:45)
[2022-05-21] MEDS ORDERED: MELATONIN 3 MG TABLET PO PRN (09:45)
--- NOTE | 2022-05-21 09:57 | Anesthesia-General Post-Op ---
General Patient Condition Mental Status/LOC: Same as Preop Cardiovascular: Satisfactory Nausea/Vomiting: Absent Respiratory: Satisfactory Pain: Controlled Complications: Absent Post Op Complications Complications None Follow Up Care/Instructions Patient Instructions None needed. Anesthesia/Patient Condition Patient Condition Patient is doing well, no complaints, stable vital signs, no apparent adverse anesthesia problems. No complications reported per nursing. RINKU ELLIS CRNA May 21, 2022 09:57
[2022-05-22] MEDS ORDERED: ASPI-1238 PO (10:23)
[2022-05-22] MEDS ORDERED: OXC5T PO (10:23)
[2022-05-22] MEDS: DOCUSATE SODIUM 100 MG (COLACE) CAP PO SCH ×3 (11:46→20:48)
[2022-05-22] MEDS: polyethylene glycoL POWDER 17 GM (MIRALAX) PACK PO SCH ×3 (11:46→20:48)
[2022-05-22 11:47] VITALS: BP 169/73
[2022-05-22] MEDS: SENNA W/DOCUSATE (SENOKOT S) TABLET PO SCH ×2 (11:47→20:48)
--- NOTE | 2022-05-22 12:23 | PM&R Post Admission Assessment ---
PM&R Date of Visit: May 22, 2022 Time of Visit: 13:00 History of Present Illness CC: Right total hip replacement with debility and lives alone Patient is an 89 yo woman admitted to rehab following a right total hip arthroplasty that occurred on 05/20/2022. After her surgery she was admitted to the floor where she began mechanical DVT prophylaxis. She began to mobilize that afternoon. Per surgery, there was some difficulty with pain control on POD #1. She continued to improve with therapy and on POD #2 pain control was improved and aided by ambulation. She is tolerating a regular diet and states that her pain is well controlled as of 05/22. She denies nausea, vomiting, lighthea dedness, headache, or visual changes. Admits to constipation but states that she has had multiple bowel movements since her surgery. She has an allergy to codeine (nausea and vomiting). 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 Surgical history includes: the aforementioned right SOPHIA as well as a ligament repair for a fallen bladder. Family history is positive for breast cancer in her mother and emphysema in her father. She has no smoking history and does not drink alcohol. The patient has no ADR and no living will. Medications include: Amlodipine Besylate (Amlodipine Besylate), 5 MG PO DAILY, (Reported) Calcium Carbonate (Calcium), 600 MG PO DAILY, (Reported) Dorzolamide HCl/Timolol Maleat (Dorzolamide-Timolol Eye Drops), 1 DROP OU BID, (Reported) Garlic (Garlic), 500 MG PO DAILY, (Reported) Latanoprost (Xalatan), 1 DROP OU HS, (Reported) Multivitamin (Multivitamin), 1 EACH PO DAILY, (Reported) Omeprazole (Omeprazole), 20 MG PO BID WITH MEALS, (Reported) Simvastatin (Simvastatin), 20 MG PO HS, (Reported) Scheduled PRN Tramadol HCl (Tramadol HCl), 50 MG PO Q6H PRN for PAIN-MODERATE (5-7), (Reported) Discontinued Medications Latanoprost/Pf (Latanoprost 0.005% Eye Drop), 7.5 ML OP UD, (Reported) Discontinued Reason: Duplicate Order Tramadol HCl (Tramadol HCl), 50 MG PO Q6H Discontinued Reason: No Longer Taking Objective: Vitals: HR - 77 RR - 20 Temp - 36.6 BP - 169/73 Pulse Ox - 97 on RA General: On exam the patient was pleasant, alert x3, in no acute distress. Cardiovascular: Heart in regular rate and rhythm, normal S1, normal S2, quiet holosystolic murmur present. Dorsalis pedis pulses were 2+ bilaterally, posterior tibial pulses were 2+ bilaterally. No JVD. Pulmonary: Lungs were clear to auscultation, normal movement of air without accessory muscle use. Neuro: Sensation in lower extremities was equal and intact bilaterally Lab values: As of 05/22, HGB - 9.2 L HCT - 27 L Na - 134 L -No other aberrancies noted A/P: Right total hip arthroplasty - The patient is being admitted to our comprehensive inpatient rehabilitation facility and can tolerate the intensity of service consisting of at least: 180 minutes of therapy a day, 5 out of 7 days a week. Pain can be managed with increased ambulation and Tramadol HCL as needed. Continue monitoring for opioid-induced constipation As pain continues to decrease, Tylenol or NSAIDs can be implemented instead. Surgical and medical staff to monitor wound healing. Osteoarthritis, hypertension, hypercholesterolemia, pre-glaucoma, cataracts, GERD - Continue medical management Past Hesqynh-[id number]-[id number] Hx Past Med/Social Hx: Reviewed Nursing Past Med/Soc Hx, Reviewed and Corrections made Patient Social History Marrital Status: Employed/Student: retired Smoking Status: Never a Smoker 2nd Hand Smoke Exposure: No Recent Hopitalizations: No Seasonal Allergies Seasonal Allergies: No Past Medical History Surgeries: Bladder Surgery Currently Using CPAP: No Currently Using BIPAP: No Cardiac: High Cholesterol, Hypertension Gastrointestinal: Gastroesophageal Reflux Musculoskeletal: Arthritis HEENT: Cataract, Glaucoma Hearing Impairment: Hard of Hearing, Bilateral Hearing Aide History of Blood Disorders: No PM&R Allergy/Meds/Data Review Allergies Coded Allergies: codeine (Verified Allergy, Unknown, VOMITS, 05/08/22) Home Medications Scheduled Amlodipine Besylate (Amlodipine Besylate), 5 MG PO DAILY, (Reported) Calcium Carbonate (Calcium), 600 MG PO DAILY, (Reported) Dorzolamide HCl/Timolol Maleat (Dorzolamide-Timolol Eye Drops), 1 DROP OU BID, (Reported) Garlic (Garlic), 500 MG PO DAILY, (Reported) Latanoprost (Xalatan), 1 DROP OU HS, (Reported) Multivitamin (Multivitamin), 1 EACH PO DAILY, (Reported) Omeprazole (Omeprazole), 20 MG PO BID WITH MEALS, (Reported) Simvastatin (Simvastatin), 20 MG PO HS, (Reported) Scheduled PRN Tramadol HCl (Tramadol HCl), 50 MG PO Q6H PRN for PAIN-MODERATE (5-7), (Reported) Discontinued Medications Latanoprost/Pf (Latanoprost 0.005% Eye Drop), 7.5 ML OP UD, (Reported) Discontinued Reason: Duplicate Order Tramadol HCl (Tramadol HCl), 50 MG PO Q6H Discontinued Reason: No Longer Taking Current Medications Current Medications Reviewed Review of Systems Constitutional: see HPI, malaise, weakness EENTM: no symptoms reported Respiratory: no symptoms reported Cardiovascular: no symptoms reported Gastrointestinal: no symptoms reported Genitourinary: no symptoms reported Musculoskeletal: joint pain Skin: no symptoms reported Psychiatric/Neurological: No Symptoms Reported Physical Exam Physical Exam Vital Signs Vital Signs - First Documented 05/22/22 11:47 Temp 36.6 Pulse 77 Resp 20 B/P (MAP) 169/73 (105) Pulse Ox 97 O2 Delivery Room Air Capillary Refill : Height, Weight, BMI Height: '" Weight: lbs. oz. kg; 19.89 BMI Method: General Appearance: No Apparent Distress, WD/WN, Chronically ill, Thin Eyes: Bilateral Eye Normal Inspection, Bilateral Eye PERRL HEENT: PERRL/EOMI, Normal ENT Inspection, Pharynx Normal Neck: Full Range of Motion, Normal Inspection, Non Tender, Supple, Carotid Bruit Respiratory: Chest Non Tender, Lungs Clear, Normal Breath Sounds, No Accessory Muscle Use, No Respiratory Distress Cardiovascular: Regular Rate, Rhythm, No Edema, No Gallop, No JVD, No Murmur, Normal Peripheral Pulses Gastrointestinal: Normal Bowel Sounds, No Organomegaly, No Pulsatile Mass, Non Tender, Soft Back: Normal Inspection, No CVA Tenderness, No Vertebral Tenderness Extremity: Normal Capillary Refill, Normal Inspection, Normal Range of Motion (limited ROM legs), Non Tender, No Calf Tenderness, No Pedal Edema Neurologic/Psychiatric: Alert, Oriented x3, No Motor/Sensory Deficits, Normal Mood/Affect Skin: Normal Color, Warm/Dry Lymphatic: No Adenopathy PM&R Medical Assessment & Plan REHAB/MEDICAL ASSESSMENT AND PLAN: REHAB IMPAIRMENT GROUP: Hip replacement ETIOLOGIC DIAGNOSIS: Hip replacement The comorbidities that impact the patients function and/or functional outcome by: advanced age, HTN, HLP, lives alone REHAB PLAN: The patient is being admitted to our comprehensive inpatient rehabilitation facility and can tolerate the intensity of service consisting of at least: 180 minutes of therapy a day, 5 out of 7 days a week Rehab treatment will consist of: PT OT will focus on regaining function with use of AD in order to increase stamina and increase independence The patient/family has a good understanding of our discharge process and will benefit from an interdisciplinary inpatient rehabilitation program. The patient has potential to make improvement and is in need of at least two of the following multidisciplinary therapies including but not limited to physical, occupational, speech, and prosthetics and orthotics. Additionally the patient will need services from respiratory, nutritional services, wound care, psychology, etc. (Customize this to each patient). Given the patients complex condition and risk of further medical complications, rehabilitation services cannot be safely or effectively provided at a lower level of care such as a shelter facility. BARRIERS TO DISCHARGE: Advanced age ESTIMATED LOS: 7 days DISPOSITION: Home RELEVANT CHANGES SINCE PREADMISSION SCREENING: I have compared the patients medical and functional status at the time of the preadmission screening and there are: no changes PROGNOSIS: Good REHABILITATION GOALS: 1. PT OT will focus on regaining function with use of AD in order to increase stamina and increase independence All the above goals were reviewed with the patient and he/she is in agreement. By signing this document, I acknowledge that I have personally performed a full physical examination on this patient within 24 hours of admission to this inpatient rehabilitation facility and have determined the patient to be able to tolerate the above course of treatment at an intensive level for a reasonable period of time. I will be completing a detailed individualized Plan of Care for this patient by day #4 of the patients stay based upon the Preadmission Screen, the Post-Admission Evaluation, and the therapy evaluations. Admission Dx/Comorbidities: (1) Primary osteoarthritis of right hip ICD Codes: M16.11 - Unilateral primary osteoarthritis, right hip Assessment/Plan Assessment and Plan Assess & Plan/Chief Complaint A/P: Right total hip arthroplasty - The patient is being admitted to our comprehensive inpatient rehabilitation facility and can tolerate the intensity of service consisting of at least: 180 minutes of therapy a day, 5 out of 7 days a week. Pain can be managed with increased ambulation and Tramadol HCL as needed. Continue monitoring for opioid-induced constipation As pain continues to decrease, Tylenol or NSAIDs can be implemented instead. Surgical and medical staff to monitor wound healing. Osteoarthritis hypertension hypercholesterolemia pre-glaucoma cataracts GERD Advanced age Plan: PT OT Monitor closely Fall risk GAB HIGH DO May 22, 2022 12:23
[2022-05-22] MEDS ORDERED: ONDANSETRON 4 MG/2 ML (SDV) Z0FRAN IV PRN (12:30)
[2022-05-22] MEDS ORDERED: BISACODYL 5 MG (DULCOLAX) TABLET PO PRN (12:30)
[2022-05-22] MEDS ORDERED: morphine INJ 4 MG/ML 1 ML (VIAL/SYRINGE) IVP PRN (12:30)
[2022-05-22] MEDS ORDERED: ACETAMINOPHEN 500 MG TAB (TYLENOL) PO PRN (12:30)
[2022-05-22] MEDS ORDERED: MILK OF MAGNESIA 400 MG/5 ML 30 ML UDC PO PRN (12:30)
--- NOTE | 2022-05-22 12:40 | Occupational Therapy Eval ---
OT Evaluation-General/PLF Medical Diagnosis Admission Date May 22, 2022 at 11:15 Medical Diagnosis: Right THR Onset Date: May 20, 2022 Therapy Diagnosis Therapy Diagnosis: Weakness, Decreased ADL skills Precautions Precautions/Isolations: Fall Prevention, Standard Precautions Comments Hip precautions Weight Bear Status Weight Bearing Restriction: Weight Bearing/Tolerated Referral Referral Reason: Activity Tolerance, Self Care, Evaluation/Treatment, Strengthening/ROM Medical History Pertinent Medical History: Arthritis, GERD, HTN Additional Medical History Bladder surgery, glaucoma Current History Pt. presents after right hip replacement on 05-20-22 to rehab to increase independence for functional return home. Reviewed History: Yes Social History Home: Single Level Current Living Status: Alone Entry Into Home: Stairs With Railing Steps Into Home: 3 ADL-Prior Level of Function SCALE: Activities may be completed with or without assistive devices. 2-[id number]-[id number] completes the activity by him/herself with no assistance from a helper. 5-Set-up or Clean-up Assistance-helper sets up or cleans up; patient completes activity. [place] assists only prior to or following the activity. 4-Supervision or Touching Assistance-helper provides verbal cues and/or touching/steadying and/or contact guard assistance as patient completes activity. Assistance may be provided throughout the activity or intermittently. 3-Partial/Moderate Assistance-helper does LESS THAN HALF the effort. [place] lifts, holds or supports trunk or limbs, but provides less than half the effort. 2-Substantial/Maximal Assistance-helper does MORE THAN HALF the effort. [place] lifts or holds trunk or limbs and provides more than half the effort. 1-[id number]-[id number] does ALL the effort. Patient does none of the effort to complete the activity. Or, the assistance of 2 or more helpers is required for the patient to complete the activity. If activity was not attempted, code reason: 7-Patient Refused. 9-Not Applicable-not attempted and the patient did not perform the activity before the current illness, exacerbation or injury. 10-Not Attempted due to Environmental Limitations-(lack of equipment, weather restraints, etc.). 88-Not Attempted due to Medical Conditions or Safety Concerns. ADL PLOF Comments Pt. verbalizes that she was independent prior to this surgery. She did fall back in Aug, and per her, has been getting injections in her knee and hip. Since falling, she has been using a walker for ambulation but nothing else. She does have assistance as needed from a neighbor. Self Care: Independent Functional Cognition: Unknown DME/Equipment: Bath Chair, Tub DME/Equipment Comments Walker. OT Current Status Subjective No pain reported. Appearance Pt. alert and very pleasant. Mental Status/Objective Patient Orientation: Person, Place, Time, Situation Pt. very verbal and needs redirection and cues at times due to continued talking while attempting to work on tasks. Attachments: IV Current Glasses/Contacts: Yes Upper Extremity ROM WFL Upper Extremity Coordination intact ADL-Treatment Eating (QC): 6 Oral Hygiene (QC): 7 Shower/Bathe Self (QC): 4 (SBA/CGA at times while in shower. Pt. did use LH sponge to wash feet with cues as she has one at home.) Upper Body Dressing (QC): 4 (SBA to don bra and shirt.) Lower Body Dressing (QC): 3 (Mod assist to thread feet into underwear and pants. Pt. able to stand and don over hips after this.) On/Off Footwear (QC): 2 (Max assist to don/doff slipper socks due to hip precautions.) Toileting Hygiene (QC): 4 (CGA and SBA during toileting task.) Pt. seen this date for partial co-treament from PT due to fatigue and need of skilled clinicians x 2 for guidance. PT educated pt. on proper hand placement of walker, ambulation strategies, and worked on going up/down step and in/out of bed. OT assisted pt. with bathing/dressing tasks, skilled instruction for hip precautions, and education for certain equipment needs. Pt. requires cues and re-direction at times. She has difficulty staying on topic at hand and will often talk about what she used to do or who she used to know. At times, becomes unsafe while standing at walker or transferring. Pt. would benefit from continued skilled OT to address safety and functional ADL skills for safe return home. Education OT Patient Education: Correct positioning, Modified ADL techniques, Progress toward Goal/Update tx plan, Purpose of tx/functional activities, Reviewed precautions, Rehab process, Transfer techniques, Use of adapted equipment Teaching Recipient: Patient Teaching Methods: Demonstration, Discussion Response to Teaching: Verbalize Understanding, Return Demonstration, Reinforcement Needed BIMS CAM BIMS Expression of Ideas and Wants: Without Difficulty Understanding Verbal Content: Understands Brief Interview/Mental Status: No IRF JOSEE BIMS: IRF JOSEE BIMS Response (Comments) Value Repitition of Three Words Three 3 Recalls Socks Yes, No Cue Required 2 Recalls Blue Yes, No Cue Required 2 Recalls Bed Yes, No Cue Required 2 Year Correct 3 Month Accurate Within 5 Days 2 Day Correct 1 Total 15 Patient Normally Able to Recal: Current Session Should Staff Asses. Mental St.: No Memory/Recall Ability: Current Season, Location of Own Room, Staff Names and Faces, That He/She in Hospit[facility] CAM Mental Status Change/Baseline: 0 Inattention: 2 Disorganized thinkin Altered level of consciousness: 0 OT Short Term Goals Short Term Goals Time Frame: May 29, 2022 Eatin Oral hygiene: 5 Toileting hygiene: 5 Shower/bathe self: 5 Upper body dressin Lower body dressin Putting on/taking off footwear: 4 OT Card Processing Clerk Goals Fdc Goals Time Frame: Jun 05, 2022 Acute change in mental status: 0 Inattention: 0 Disorganized thinkin Altered level of consciousness: 0 Eating (QC): 6 Oral Hygiene (QC): 6 Toileting Hygiene (QC): 6 Shower/Bathe Self (QC): 6 Upper Body Dressing (QC): 6 Lower Body Dressing (QC): 6 On/Off Footwear (QC): 6 (With AE.) Additional Goals: 1-Demonstrate ADL Tasks, 2-Verbalize Understanding, 3-ImproveStrength/[place] 1=Demonstrate adherence to instructed precautions during ADL tasks. 2=Patient will verbalize/demonstrate understanding of assistive devices/modifications for ADL. 3=Patient will improve strength/tolerance for activity to enable patient to perform ADL's. OT Education/Plan Problem List/Assessment Assessment: Decreased Activ Tolerance, Impaired Bed Mobility, Impaired I ADL's, Impaired Self-Care Skills Discharge Recommendations Plan/Recommendations: Continue POC Therapy Discharge Recommendati: Post Acute OT Equpiment Recommendations-D/C: Hip Kit Treatment Plan/Plan of Care Treatment,Training & Education: Yes Patient would benefit from OT for education, treatment and training to promote independence in ADL's, mobility, safety and/or upper extremity function for ADL's. Plan of Care: ADL Retraining, Functional Mobility, UE Funct Exercise/Act Treatment Duration: Jun 05, 2022 Frequency: At least 5 of 7 days/Wk (IRF) Estimated Hrs Per Day: 1.5 hours per day Agreement: Yes Rehab Potential: Good Time/GCodes Start Time: 11:30 Stop Time: 12:15 Total Time Billed (hr/min): 45 Billed Treatment Time 0904-0553 OT eval only [id number] ADL x 35minutes. Co-treat with PT. Please see above note for designated roles. VIANEY LUIS OT May 22, 2022 12:40
--- NOTE | 2022-05-22 12:46 | Physical Therapy Evaluation ---
PT Evaluation-General Medical Diagnosis Admission Date May 22, 2022 at 11:15 Medical Diagnosis: Right THR Onset Date: May 20, 2022 Therapy Diagnosis Therapy Diagnosis: impaired mobility Precautions Precautions/Isolations: Fall Prevention, Standard Precautions Weight Bear Status Right Lower Extremity: Right Weight Bearing/Tolerated Referral Physician: Daniela Mccullough DO Reason for Referral: Evaluation/Treatment Medical History Current History s/p elective right THR Reviewed History: Yes Social History Home: Single Level Current Living Status: Spouse Entry Into Home: Stairs With Railing PT Steps Into Home: 2 Prior Prior Level of Function SCALE: Activities may be completed with or without assistive devices. 5-Vataiemmss-hovpzxz completes the activity by him/herself with no assistance from a helper. 5-Set-up or Clean-up Assistance-helper sets up or cleans up; patient completes activity. [place] assists only prior to or following the activity. 4-Supervision or Touching Assistance-helper provides verbal cues and/or touching/steadying and/or contact guard assistance as patient completes activity. Assistance may be provided throughout the activity or intermittently. 3-Partial/Moderate Assistance-helper does LESS THAN HALF the effort. [place] lifts, holds or supports trunk or limbs, but provides less than half the effort. 2-Substantial/Maximal Assistance-helper does MORE THAN HALF the effort. [place] lifts or holds trunk or limbs and provides more than half the effort. 3-Eartjqmff-zeqeqt does ALL the effort. Patient does none of the effort to complete the activity. Or, the assistance of 2 or more helpers is required for the patient to complete the activity. If activity was not attempted, code reason: 7-Patient Refused. 9-Not Applicable-not attempted and the patient did not perform the activity before the current illness, exacerbation or injury. 10-Not Attempted due to Environmental Limitations-(lack of equipment, weather restraints, etc.). 88-Not Attempted due to Medical Conditions or Safety Concerns. Bed Mobility: 6 Transfers (B,C,W/C): 6 Gait: 6 Stairs: 6 Indoor Mobility (Ambulation): Independent Stairs: Independent Prior Devices Use: Walker PT Evaluation-Current Subjective Patient in recliner pre tx, agrees to PT, has 3/10 pain in right hip. Will be co-treating with OT for part of tx due to poor patient mobility, strength, endurance severe debility, coordinate UE and LE during activity, safety and reduce risk of falls. Pain Section J - Health Conditions 1. Rarely or not at all 2. Occasionally 3. Frequently 4. Almost constantly 8. Unable to answer Pain Effect on Sleep: 2 Pain Interference with Therapy: 2 Pain Interference w/Day-to-Day: 2 Pt/Family Goals to be independent at home Objective Patient Orientation: Person, Place, Situation ROM/Strength ROM Lower Extremities NT in RLE Strength Lower Extremities NT in RLE Sensory Vision: Wears Glasses Hearing: Functional Sensation Right Lower Extremit: Intact Sensation Left Lower Extremity: Intact Transfers Roll Left & Right (QC): 4 Sit to Lying (QC): 3 Lying to Sitting/Side of Bed(Q: 3 Sit to Stand (QC): 4 Chair/Lsk-lf-Mbtyf Xfer(QC): 4 Toilet Transfer (QC): 4 Car Transfer (QC): 4 Patient performs rolling with SBA, supine <-> sit min assist, sit <-> stand and transfers CGA, car transfer CGA. Patient needs occasional cues for hand placement and safety, has a lot of difficulty getting her right foot into the car transfer machine but can do it on her own. Gait Does the Patient Walk?: Yes Mode of Locomotion: Walk Anticipated Mode of Locomotion: Walk Walk 10 feet (QC): 4 Walk 50 ft with 2 Turns(QC): 4 Walk 150 ft (QC): 4 Walking 10ft/uneven surface-QC: 4 Distance: 200'x2, 50' Gait Assistive Device: FWW Comments/Gait Description Patient can ambulate 200' with a rolling walker with CGA (including 50' with at least 2 turns of 90 degrees and 10' over an uneven surface), gait is slow but steady, good step through Wheelchair Training Wheel 50 ft with 2 turns (QC): 9 Wheel 150 ft (QC): 9 Stairs #of Steps: 1 1 Step (curb) (QC): 4 4 Steps (QC): 88 12 Steps (QC): 88 Walking Assistive Device: Walker Patient can go up and down 1 step using a rolling walker with CGA, cues for foot placement. Balance Sitting Static: Normal Sitting Dynamic: Normal Standing Static: Fair Standing Dynamic: Fair Picking up an Object (QC): 4 (CGA using a manager leadership development) Treatment Patient started bathing with OT assist. PT performed bed mobility and transfers, ambulation, stair training, assist with positioning and safety during bathing, OT performed UE positioning and safety during activity, bathing, dressing, toileting. Assessment/Needs Patient in shower post tx to continue with OT, CAN COVERER will take over for PT. Patient has impaired mobility, strength, endurance. She sometimes has trouble following simple directions but then other times she is fine. Patient can be a little impulsive. Rehab Potential: Fair PT Short Term Goals Short Term Goals Time Frame: May 29, 2022 Roll Left & Right: 6 Sit to lyin (CGA) Lying to sitting on side of be: 4 (CGA) Sit to stand: 4 (SBA) Chair/uaz-qx-orbmu transfer: 4 (SBA) Walk 10 feet: 4 (SBA) Walk 50 feet with two turns: 4 (SBA) Walk 150 feet: 4 (SBA) PT Digital Analyst Goals Shelter Goals PT Digital Analyst Goals Time Frame: Jun 12, 2022 Roll Left to Right (QC): 6 Sit to Lying (QC): 6 Lying-Sitting on Side/Bed(QC): 6 Sit to Stand (QC): 6 Chair/Ptq-gw-Mawyl Xfer(QC): 6 Toilet/Commode Transfer (QC): 6 Car Transfer (QC): 6 Does the Patient Walk: Yes Walk 10 feet (QC): 6 Walk 10ft-Uneven Surface(QC): 6 Walk 50ft with 2 Turns (QC): 6 Walk 150 ft (QC): 6 Wheel 50 feet with 2 turns (QC: 9 Wheel 150 feet: 9 1 Step (curb) (QC): 4 (BA) 4 Steps (QC): 4 (SBA) 12 Steps (QC): 88 Picking up an Object (QC): 4 (SBA using manager leadership development) PT Plan Problem List Problem List: Activity Tolerance, Functional Strength, Safety, Balance, Gait, Transfer, Bed Mobility, ROM Treatment/Plan Treatment Plan: Continue Plan of Care Treatment Plan: Bed Mobility, Education, Functional Activity [place], Functional Strength, Group Therapy, Gait, Safety, Therapeutic Exercise, Transfers Treatment Duration: Jun 12, 2022 Frequency: At least 5 of 7 days/Wk (IRF) Estimated Hrs Per Day: 1.5 hours per day Patient and/or Family Agrees t: Yes Safety Risks/Education Patient Education: Gait Training, Transfer Techniques, Steps, Reviewed Precautions, Correct Positioning, Safety Issues Teaching Recipient: Patient Teaching Methods: Demonstration, Discussion Response to Teaching: Reinforcement Needed Discharge Recommendations Plan Patient will perform bed mobility and transfer training, balance and endurance training, functional strengthening, stair training, gait training, and education, to improve functional mobility and independence at home. Therapy Discharge Recommendati: Scheduled Assistance, Home & Family, Post Acute PT Time Time In: 1115 Time Out: 1200 Total Billed Treatment Time: 35 Total Billed Treatment 1 visit EVM 15' FA 20' PT eval from [id number] OT eval from [id number] co-treat from [id number] GUALBERTO TALBERT PT May 22, 2022 12:46
--- NOTE | 2022-05-22 13:02 | Physical Therapy Daily Note ---
PT Daily Note-Current Subjective Pt. is pleasant and talkative and agreeable to Rx. Pt. states she only experiences pain or discomfort with activity of TRF or exercises. Pain Numeric Pain Scale: 4 Location: Right Location Body Site: Hip Pain Description: [place] Section J - Health Conditions 1. Rarely or not at all 2. Occasionally 3. Frequently 4. Almost constantly 8. Unable to answer Pain Effect on Sleep: 1 Pain Interference with Therapy: 2 Pain Interference w/Day-to-Day: 1 Appearance varum with rigid waddle type gait. WBOS Mental Status Patient Orientation: Normal For Age Transfers SCALE: Activities may be completed with or without assistive devices. 3-Uwehyelqoz-usdjmpa completes the activity by him/herself with no assistance from a helper. 5-Set-up or Clean-up Assistance-helper sets up or cleans up; patient completes activity. [place] assists only prior to or following the activity. 4-Supervision or Touching Assistance-helper provides verbal cues and/or touching/steadying and/or contact guard assistance as patient completes activity. Assistance may be provided throughout the activity or intermittently. 3-Partial/Moderate Assistance-helper does LESS THAN HALF the effort. [place] lifts, holds or supports trunk or limbs, but provides less than half the effort. 2-Substantial/Maximal Assistance-helper does MORE THAN HALF the effort. [place] lifts or holds trunk or limbs and provides more than half the effort. 2-Wtviqvlel-pklhml does ALL the effort. Patient does none of the effort to complete the activity. Or, the assistance of 2 or more helpers is required for the patient to complete the activity. If activity was not attempted, code reason: 7-Patient Refused. 9-Not Applicable-not attempted and the patient did not perform the activity before the current illness, exacerbation or injury. 10-Not Attempted due to Environmental Limitations-(lack of equipment, weather restraints, etc.). 88-Not Attempted due to Medical Conditions or Safety Concerns. Sit to Lying (QC): 4 Sit to Stand (QC): 6 Chair/Hka-td-Vsrul Xfer(QC): 4 TRF shower bench to stance min asst Weight Bearing Right Lower Extremity: Right Weight Bearing/Tolerated Gait Training Does the Patient Walk?: Yes Walk 10 feet (QC): 4 Walk 50 ft with 2 Turns(QC): 4 Gait Persons Needed: 1 Gait Assistive Device: FWW gait shower to recliner, recliner to door of room and back in to room to bed. CGA FWW Exercises Supine Ex: Ankle pumps, Quad Set, Glut sets, Heel Slides (assisted on right), Short Arc Quads, Scooting (up in recliner), Straight leg raise (assisted right), Hip abd/add (assisted right) Supine Reps: 15 Seated Therapy Exercises: Sit to stand, Long arc quads Seated Reps: 15 Treatments PT OT co Rx for showering, dressing, TRFs, gait, initiation to room, recliner, use of call light etc, PT and OT coordinating on balance and safety facilitating U&L extremities and educating on safety and precautions throughout all ADLs Assessment Current Status: Good Progress pt. is very motivated, talks throughout and needs some redirection back to tasks, will likely progress well PT Short Term Goals Short Term Goals Time Frame: May 29, 2022 Roll Left & Right: 6 Sit to lyin (CGA) Lying to sitting on side of be: 4 (CGA) Sit to stand: 4 (SBA) Chair/hes-pw-vhuyn transfer: 4 (SBA) Walk 10 feet: 4 (SBA) Walk 50 feet with two turns: 4 (SBA) Walk 150 feet: 4 (SBA) PT Digital Associate Media Director Goals Fdc Goals PT Fdc Goals Time Frame: Jun 12, 2022 Roll Left & Right (QC): 6 Sit to Lying (QC): 6 Lying-Sitting on Side/Bed(QC): 6 Sit to Stand (QC): 6 Chair/Vpn-wv-Nyvbz Xfer(QC): 6 Toilet Transfer (QC): 6 Car Transfer (QC): 6 Does the Patient Walk: Yes Walk 10 feet (QC): 6 Walk 50ft with 2 Turns (QC): 6 Walk 150 ft (QC): 6 Walking 10ft on Uneven Surface: 6 1 Step (curb) (QC): 4 (BA) 4 Steps (QC): 4 (SBA) 12 Steps (QC): 88 Picking up an Object (QC): 4 (SBA using fitness consultant) Wheel 50 feet with 2 turns (QC: 9 Wheel 150 feet: 9 PT Plan Treatment/Plan Treatment Plan: Continue Plan of Care Treatment Plan: Bed Mobility, Education, Functional Activity [place], Functional Strength, Group Therapy, Gait, Safety, Therapeutic Exercise, Transfers Treatment Duration: Jun 12, 2022 Frequency: At least 5 of 7 days/Wk (IRF) Estimated Hrs Per Day: 1.5 hours per day Patient and/or Family Agrees t: Yes Safety Risks/Education Patient Education: Gait Training, Transfer Techniques, Reviewed Precautions, Correct Positioning, Disease Process, Safety Issues Teaching Recipient: Patient Teaching Methods: Demonstration, Discussion Response to Teaching: Verbalize Understanding, Return Demonstration, Reinforcement Needed Time Time In: 1200 Time Out: 1255 Total Billed Treatment Time: 55 Total Billed Treatment 1,FA25m,GT10m,EX20m PT OT co Rx 55 m RAFAEL HASTINGS INBOUND TELEMARKETER May 22, 2022 13:02
--- NOTE | 2022-05-22 13:18 | Occupational Ther Daily Note ---
OT Current Status-Daily Note Subjective Pt alert, sitting in recliner. Took over care from OTR/L. Co-treat with PT [id number], skills of 2 clinicians required due to fatigue, pain, decreasing fall risk during mobility and education for B UE/LE exercises to strengthen for daily functional tasks. PT focusing on ambulation, B LE strengthening and bed mobility while OT focusing on functional mobility, B UE strengthening and ADLs. Mental Status/Objective Patient Orientation: Person, Place, Time, Situation Attachments: IV ADL-Treatment Pt is loquacious throughout session and requires direction to focus on task being presented. Assist given to don SPRING hose. Skilled education provided on use of adaptive equipment. Pt demonstrated understand using adaptive equipment to don/doff socks. Therapy Code Descriptions/Definitions Functional [place] Measure: 0=Not Assessed/NA 4=Minimal Assistance 1=Total Assistance 5=Supervision or Setup 2=Maximal Assistance 6=Modified [place] 3=Moderate Assistance 7=Complete IndependenceSCALE: Activities may be completed with or without assistive devices. 4-Fhddkstcpq-ywzxhmn completes the activity by him/herself with no assistance from a helper. 5-Set-up or Clean-up Assistance-helper sets up or cleans up; patient completes activity. [place] assists only prior to or following the activity. 4-Supervision or Touching Assistance-helper provides verbal cues and/or touching/steadying and/or contact guard assistance as patient completes activity. Assistance may be provided throughout the activity or intermittently. 3-Partial/Moderate Assistance-helper does LESS THAN HALF the effort. [place] lifts, holds or supports trunk or limbs, but provides less than half the effort. 2-Substantial/Maximal Assistance-helper does MORE THAN HALF the effort. [place] lifts or holds trunk or limbs and provides more than half the effort. 8-Yneczlxwf-rvlaut does ALL the effort. Patient does none of the effort to complete the activity. Or, the assistance of 2 or more helpers is required for the patient to complete the activity. If activity was not attempted, code reason: 7-Patient Refused. 9-Not Applicable-not attempted and the patient did not perform the activity b efore the current illness, exacerbation or injury. 10-Not Attempted due to Environmental Limitations-(lack of equipment, weather restraints, etc.). 88-Not Attempted due to Medical Conditions or Safety Concerns. Other Treatment Pt completed 5 different UE exercises, 10 reps ea. with L and R UE using light resistance theraband, while supine in bed after skilled education provided. Pt completed all UE exercises without breaks. Phone/call light in reach. All needs met in room. Education OT Patient Education: Home exercise program, Use of adapted equipment Teaching Recipient: Patient Teaching Methods: Demonstration, Discussion Response to Teaching: Verbalize Understanding, Return Demonstration OT Short Term Goals Short Term Goals Time Frame: May 29, 2022 Eatin Oral hygiene: 5 Toileting hygiene: 5 Shower/bathe self: 5 Upper body dressin Lower body dressin Putting on/taking off footwear: 4 OT Linoleum Floor Layer Goals Linoleum Floor Layer Goals Time Frame: Jun 05, 2022 Acute change in mental status: 0 Inattention: 0 Disorganized thinkin Altered level of consciousness: 0 Eating (QC): 6 Oral Hygiene (QC): 6 Toileting Hygiene (QC): 6 Shower/Bathe Self (QC): 6 Upper Body Dressing (QC): 6 Lower Body Dressing (QC): 6 On/Off Footwear (QC): 6 (With AE.) Additional Goals: 1-Demonstrate ADL Tasks, 2-Verbalize Understanding, 3- ImproveStrength/[place] 1=Demonstrate adherence to instructed precautions during ADL tasks. 2=Patient will verbalize/demonstrate understanding of assistive devices/modifications for ADL. 3=Patient will improve strength/tolerance for activity to enable patient to perform ADL's. OT Education/Plan Problem List/Assessment Assessment: Decreased Safety Aware, Impaired Funct Balance Discharge Recommendations Plan/Recommendations: Continue POC Treatment Plan/Plan of Care Patient would benefit from OT for education, treatment and training to promote independence in ADL's, mobility, safety and/or upper extremity function for ADL's. Plan of Care: ADL Retraining, Functional Mobility, UE Funct Exercise/Act Treatment Duration: Jun 05, 2022 Frequency: At least 5 of 7 days/Wk (IRF) Estimated Hrs Per Day: 1.5 hours per day Agreement: Yes Rehab Potential: Good Time/GCodes Start Time: 12:15 Stop Time: 13:00 Total Time Billed (hr/min): 45 Billed Treatment Time 1 visit ADL 1 (15 min) EX 1 (15 min) FA 1 (15 min) Co-treat with PT [id number], individual [id number] KEN JOHN May 22, 2022 13:18
[2022-05-22] MEDS ORDERED: FLU QUAD HIGH DOSE 240 MCG/0.7 ML 2022-23 (FLUZONE) IM ONE (13:30)
--- NOTE | 2022-05-22 13:35 | ST Cognitive Linguistic Eval ---
Speech Evaluation-General Medical Diagnosis Right THR Onset Date: May 20, 2022 Therapy Diagnosis Therapy Diagnosis: Intact/Baseline Cognition Precautions Precautions: Fall, Hip Precautions/Isolations: Fall Prevention, Standard Precautions Referral Referring Physician: Dr. Mccullough Reason for Referral: Evaluation/Treatment Medical History Pertinent Medical History: Arthritis, GERD, HTN Current History The patient is an 89 year-old female with a past medical history of arthritis, GERD, and HTN, who presents to ARU following a right hip replacement on 05/20/22. Reviewed History: Yes Social History Current Living Status: Alone Speech PLF-Current Status Prior Level of Function The patient reported baseline cognition, speech, and language. Subjective The patient was seated upright in her bed, awake and alert, upon entrance to her room by the clinician. The patient greeted the clinician appropriately and was agreeable to participation in the cognitive linguistic assessment. Language Eval: Auditory Comprehends Simple Yes/No Ques: Functional Indent/Objects Multiple Morse: Functional Ident/Pics in Multiple Morse: Functional Follows 1-Step Commands: Functional Follows General Conversations: Functional The patient does require frequent redirection to task due to verbose state. Language Eval: Verbal Language Completes Spontaneous Greeting: Functional Produces Auto, Serial Info: Functional Imitates Simple Words/Phrases: Functional Word Finding: Functional Requests Basic Needs: Functional States Basic Personal Info: Functional Language Evaluation: Reading The patient reports difficulty (and intermittent inability) to read or write due to vision difficulties. Cognitive Patient Orientation The patient was independently oriented to self, location, month, day of the week, date and year. Objective Cognitive Domain Attention: WNL Memory: WNL Problem Solving: Functional Composite Severity Rating: WNL Objective Formal/Standardized Tests [facility] Mental Status Exam ([facility]) Results The patient demonstrated a result of +24/26 on the SLUMS correlating to cognitive linguistic skills within normal limits. The patient did defer the clock drawing task due to difficulty with vision. Oral Motor/Speech Production The patient does not display dysarthria or apraxia of speech at this time. The patient is 100% intelligible in known and unknown contexts. Impression The patient displayed neurocognitive skills within normal limits and at baseline. Speech Patient Assess Expression of Ideas/Wants: Expression (4) Understanding Verbal Content: Understands (4) Brief Interview-Mental Status: Yes Repetition of Three Words: Three (3) Temporal Orientation: Year: Correct (3) Temporal Orientation: Month: Accurate within 5 days(2) Temporal Orientation: Day: Correct (1) Recall : Wear to say "Sock": Yes, no cue required (2) Recall : Color: Yes, no cue required (2) Recall : Bed: Yes, no cue required (2) Memory/Recall Ability: Current season, Staff names and faces, That he or she is in a hsp/hsp unit Speech-Plan Treatment Plan Speech Therapy Treatment Plan: Discontinue ST Treatment Duration: May 22, 2022 Frequency: 1 time per week Estimated Hrs Per Day: .5 hour per day Rehab Potential: Good Safety Risks/Education Teaching Recipient: Patient Teaching Methods: Discussion Response to Teaching: Verbalize Understanding Education Topics Provided: Results, Recommendations, Plan of Care Time Speech Therapy Time In: 13:05 Speech Therapy Time Out: 13:30 Total Billed Time: 25 Billed Treatment Time 1, VIVI CARSON [facility] May 22, 2022 13:35
--- NOTE | 2022-05-22 14:19 | Progress Note ---
JOSH TOBIN 05/22/22 1419: Progress Note Patient is an 89 yo woman admitted to rehab following a right total hip arthroplasty that occurred on 05/20/2022. After her surgery she was admitted to the floor where she began mechanical DVT prophylaxis. She began to mobilize that afternoon. Per surgery, there was some difficulty with pain control on POD #1. She continued to improve with therapy and on POD #2 pain control was improved and aided by ambulation. She is tolerating a regular diet and states that her pain is well controlled as of 05/22. She denies nausea, vomiting, lightheadedness, headache, or visual changes. Admits to constipation but states that she has had multiple bowel movements since her surgery. She has an allergy to codeine (nausea and vomiting). 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 Surgical history includes: the aforementioned right SOPHIA as well as a ligament repair for a fallen bladder. Family history is positive for breast cancer in her mother and emphysema in her father. She has no smoking his tory and does not drink alcohol. The patient has no ADR and no living will. Medications include: Amlodipine Besylate (Amlodipine Besylate), 5 MG PO DAILY, (Reported) Calcium Carbonate (Calcium), 600 MG PO DAILY, (Reported) Dorzolamide HCl/Timolol Maleat (Dorzolamide-Timolol Eye Drops), 1 DROP OU BID, (Reported) Garlic (Garlic), 500 MG PO DAILY, (Reported) Latanoprost (Xalatan), 1 DROP OU HS, (Reported) Multivitamin (Multivitamin), 1 EACH PO DAILY, (Reported) Omeprazole (Omeprazole), 20 MG PO BID WITH MEALS, (Reported) Simvastatin (Simvastatin), 20 MG PO HS, (Reported) Scheduled PRN Tramadol HCl (Tramadol HCl), 50 MG PO Q6H PRN for PAIN-MODERATE (5-7), (Reported) Discontinued Medications Latanoprost/Pf (Latanoprost 0.005% Eye Drop), 7.5 ML OP UD, (Reported) Discontinued Reason: Duplicate Order Tramadol HCl (Tramadol HCl), 50 MG PO Q6H Discontinued Reason: No Longer Taking Objective: Vitals: HR - 77 RR - 20 Temp - 36.6 BP - 169/73 Pulse Ox - 97 on RA General: On exam the patient was pleasant, alert x3, in no acute distress. Cardiovascular: Heart in regular rate and rhythm, normal S1, normal S2, quiet holosystolic murmur present. Dorsalis pedis pulses were 2+ bilaterally, posterior tibial pulses were 2+ bilaterally. No JVD. Pulmonary: Lungs were clear to auscultation, normal movement of air without accessory muscle use. Neuro: Sensation in lower extremities was equal and intact bilaterally Lab values: As of 05/22, HGB - 9.2 L HCT - 27 L Na - 134 L -No other aberrancies noted A/P: Right total hip arthroplasty - The patient is being admitted to our comprehensive inpatient rehabilitation facility and can tolerate the intensity of service consisting of at least: 180 minutes of therapy a day, 5 out of 7 days a week. Pain can be managed with increased ambulation and Tramadol HCL as needed. Continue monitoring for opioid-induced constipation As pain continues to decrease, Tylenol or NSAIDs can be implemented instead. Surgical and medical staff to monitor wound healing. Osteoarthritis, hypertension, hypercholesterolemia, pre-glaucoma, cataracts, GERD - Continue medical management DANIELA HIGH DO 05/22/222028: Supervisory-Addendum Brief Verification & Attestation Participated in pt care: history, MDM, physical Personally performed: exam, history, MDM, supervision of care Care discussed with: Medical Student Procedures: n/a Results interpretation: Verified all documentation Verification and Attestation of Medical Student E/M Service A medical student performed and documented this service in my presence. I reviewed and verified all information documented by the medical student and made modifications to such information, when appropriate. I personally performed the physical exam and medical decision making. Daniela High, May 22, 2022,20:29 JOSH TOBIN May 22, 2022 14:19 DANIELA HIGH DO May 22, 2022 20:29
[2022-05-22] MEDS: OMEPRAZOLE 20 MG (PriLOSEC) CAP NON-FORMULARY PO SCH (16:20)
[2022-05-22] MEDS: ASPIRIN E.C. 81 MG (ECOTRIN) TAB PO SCH (17:24)
[2022-05-22 19:52] VITALS: BP 133/53
[2022-05-22] MEDS: DORZOLAMIDE/TIMOLOL (COSOPT) 2-0.68% 10 ML BTL OP SCH (20:25)
[2022-05-22] MEDS: SIMVASTATIN 20 MG TABLET PO SCH (20:36)
[2022-05-22] MEDS: CELECOXIB 100 MG (CeleBREX) CAP PO SCH (20:36)
[2022-05-22] MEDS: LATANOPROST 0.005% (XALATAN) OPHTH SOLN 2.5 ML OU SCH (20:36)
[2022-05-22] MEDS: ACETAMINOPHEN 325 MG TABLET PO PRN (22:48)
[2022-05-23 05:51] LABS: ALBUMIN 2.7 GM/DL (3.2-4.5)
[2022-05-23 05:52] LABS: POTASSIUM 3.9 MMOL/L (3.6-5.0)
[2022-05-23 05:53] LABS: CALCIUM 8.3 MG/DL (8.5-10.1)
[2022-05-23 05:54] LABS: TOTAL PROTEIN 5.5 GM/DL (6.4-8.2)
[2022-05-23 05:56] LABS: BILIRUBIN,TOTAL 0.5 MG/DL (0.1-1.0)
[2022-05-23 05:57] LABS: CREATININE SERUM 0.58 MG/DL (0.60-1.30)
--- NOTE | 2022-05-23 06:00 | PM&R Progress Note ---
Subjective HPI/CC On Admission Date Seen by Provider: May 23, 2022 Time Seen by Provider: 11:00 Subjective/Events-last exam 05/23/2022: Patient doing well Sodium level is 128 Fluid restriction ordered No falls Pain controlled with Tylenol only Review of Systems General: Fatigue, Malaise Musculoskeletal: leg pain Objective Exam Vital Signs Vital Signs Date Time Temp Pulse Resp B/P (MAP) Pulse Ox O2 Delivery O2 Flow Rate FiO2 05/23/22 11:00 69 148/66 (93) 05/23/22 08:35 Room Air 05/23/22 07:18 36.5 16 97 Capillary Refill : General Appearance: No Apparent Distress, WD/WN, Chronically ill, Thin HEENT: PERRL/EOMI, Normal ENT Inspection, Pharynx Normal Neck: Full Range of Motion, Normal Inspection, Non Tender, Supple, Carotid Bruit Respiratory: Chest Non Tender, Lungs Clear, Normal Breath Sounds, No Accessory Muscle Use, No Respiratory Distress Cardiovascular: Regular Rate, Rhythm, No Edema, No Gallop, No JVD, No Murmur, Normal Peripheral Pulses Gastrointestinal: Normal Bowel Sounds, No Organomegaly, No Pulsatile Mass, Non Tender, Soft Back: Normal Inspection, No CVA Tenderness, No Vertebral Tenderness Extremity: Normal Capillary Refill, Normal Inspection, Normal Range of Motion (limited ROM legs), Non Tender, No Calf Tenderness, No Pedal Edema Neurologic/Psychiatric: Alert, Oriented x3, No Motor/Sensory Deficits, Normal Mood/Affect Skin: Normal Color, Warm/Dry Lymphatic: No Adenopathy Results/Procedures Lab Laboratory Tests 05/23/22 05:23 Patient resulted labs reviewed. FIM Transfers Therapy Code Descriptions/Definitions Functional [place]gs Measure: 0=Not Assessed/NA 4=Minimal Assistance 1=Total Assistance 5=Supervision or Setup 2=Maximal Assistance 6=Modified Gr[place]gs 3=Moderate Assistance 7=Complete IndependenceSCALE: Activities may be completed with or without assistive devices. 2-Ckuefugrso-lfkawbh completes the activity by him/herself with no assistance from a helper. 5-Set-up or Clean-up Assistance-helper sets up or cleans up; patient completes activity. Browns assists only prior to or following the activity. 4-Supervision or Touching Assistance-helper provides verbal cues and/or touching/steadying and/or contact guard assistance as patient completes activity. Assistance may be provided throughout the activity or intermittently. 3-Partial/Moderate Assistance-helper does LESS THAN HALF the effort. Browns lifts, holds or supports trunk or limbs, but provides less than half the effort. 2-Substantial/Maximal Assistance-helper does MORE THAN HALF the effort. Browns lifts or holds trunk or limbs and provides more than half the effort. 9-Euypolfoo-eletso does ALL the effort. Patient does none of the effort to complete the activity. Or, the assistance of 2 or more helpers is required for the patient to complete the activity. If activity was not attempted, code reason: 7-Patient Refused. 9-Not Applicable-not attempted and the patient did not perform the activity before the current illness, exacerbation or injury. 10-Not Attempted due to Environmental Limitations-(lack of equipment, weather restraints, etc.). 88-Not Attempted due to Medical Conditions or Safety Concerns. Roll Left to Right (QC): 4 Sit to Lying (QC): 4 Sit to Stand (QC): 6 Chair/Qor-zv-Onidn Xfer(QC): 4 Car Transfer (QC): 4 Gait Training Does the Patient Walk?: Yes Walk 10 feet (QC): 4 Walk 50 ft with 2 Turns(QC): 4 Walk 150 ft (QC): 4 Walking 10ft/uneven surface-QC: 4 Gait Persons Needed: 1 Gait Assistive Device: FWW Wheelchair Training Wheel 50 ft with 2 turns (QC): 9 Wheel 150 ft (QC): 9 Stair Training #of Steps: 1 1 Step (curb) (QC): 4 4 Steps (QC): 88 12 Steps (QC): 88 Balance Picking up an Object (QC): 4 (CGA using a linotyper) ADL-Treatment Eating (QC): 6 Oral Hygiene (QC): 7 Shower/Bathe Self (QC): 4 (SBA/CGA at times while in shower. Pt. did use LH s ponge to wash feet with cues as she has one at home.) Upper Body Dressing (QC): 4 (SBA to don bra and shirt.) Lower Body Dressing (QC): 3 (Mod assist to thread feet into underwear and pants. Pt. able to stand and don over hips after this.) On/Off Footwear (QC): 2 (Max assist to don/doff slipper socks due to hip precautions.) Toileting Hygiene (QC): 4 (CGA and SBA during toileting task.) Assessment/Plan Assessment and Plan Assess & Plan/Chief Complaint A/P: Right total hip arthroplasty - The patient is being admitted to our comprehensive inpatient rehabilitation facility and can tolerate the intensity of service consisting of at least: 180 minutes of therapy a day, 5 out of 7 days a week. Pain can be managed with increased ambulation and Tramadol HCL as needed. Continue monitoring for opioid-induced constipation As pain continues to decrease, Tylenol or NSAIDs can be implemented instead. Surgical and medical staff to monitor wound healing. Osteoarthritis hypertension hypercholesterolemia pre-glaucoma cataracts GERD Advanced age Anemia Iron def Hyponatremia Plan: PT OT Monitor closely Fall risk 05/23/2022: Iron infusions (1) Primary osteoarthritis of right hip GAB HIGH DO May 23, 2022 06:00
--- NOTE | 2022-05-23 06:00 | Individualized Plan of Care ---
Individualized Plan of Care Rehab Nursing IPOC Order Admission Date May 22, 2022 at 11:15 Current Orders Orders Admission Order(Inpt,Obs,Sdc) (05/21/22 09:43) Vital Signs: Per Unit Policy ( 08,16,00 (05/21/22 09:43) Bam French (05/21/22 09:43) Sequential Compression Device (05/21/22:43) Supervisor Labor Gang-Inpt Rehab Con (05/21/22 09:43) Rehab Nursing Orders-Ipoc (05/21/22 09:43) Physical Therapy Rehab Orders (05/21/22 09:43) Occupational Therapy Rehab Ord (05/21/22:43) Speech Therapy Rehab Orders (05/21/22:43) Precautions (Aru) (05/21/22 09:43) Weekly Weight WEEK (05/21/22 09:43) Rehab-Intensity Of Therapy (05/21/22 09:43) Initiate Admission Nursing Pro .admission (05/21/22 09:43) Alprazolam Tablet (Xanax Tablet) (05/21/22 09:45) Calcium Carbonate Chew Tablet (Antacid C (05/21/22 09:45) Diphenhydramine Tablet (Benadryl Tablet) (05/21/22 09:45) Docusate Sodium Capsule (Colace Capsule) (05/21/22 21:00) Docusate Sodium Capsule (Colace Capsule) (05/21/22 09:45) Bisacodyl Suppository (Dulcolax Supposit (05/21/22 09:45) Lactulose Oral Solution (Enulose Oral So (05/21/22 09:45) Na Phos/Na Biphos Enema (Fleet Enema Mykel (05/21/22 09:45) Guaifenesin/Codeine Syrup (Robitussin Ac (05/21/22 09:45) Loperamide Tablet (Imodium Tablet) (05/21/22 09:45) Melatonin Tablet (Melatonin Tablet) (05/21/22 09:45) Polyethylene Glycol Powder Pkt (Miralax (05/21/22 21:00) Ondansetron Oral Dissolve Tab (Zofran (05/21/22 09:45) Senna S Tablet (Senokot S Tablet) (05/21/22 21:00) Acetaminophen Tablet/Caplet (Tylenol T (05/21/22 09:45) Initiate Admission Nursing Pro .admission (05/21/22 09:43) Admission Arrival Bed Request (05/22/22 11:29) Code/Resuscitation (05/22/22 12:19) Abduction Pillow: Apply (Order (05/22/22 12:19) Dressing Order (Intervention) DAILY (05/22/22 12:19) Ice: Apply To Affected Area (05/22/22 12:19) Iv Convert To Heplock (Order) (05/22/22 12:19) Incentive Spirometry (Nursing) Q2H (05/22/22 12:19) Weight Bearing As Tolerated (05/22/22 12:19) General/Regular (05/22/22 Lunch) Aspirin Enteric Coated Tablet (Ecotrin T (05/22/22 18:00) Celecoxib Capsule (Celebrex Capsule) (05/22/22 21:00) Docusate Sodium Capsule (Colace Capsule) (05/22/22 21:00) Dorzolamide/Timolol Ophth Soln (Cosopt O (05/22/22 21:00) Bisacodyl Tablet (Dulcolax Tablet) (05/22/22 12:30) Latanoprost 0.005% Ophth Soln (Xalatan 0 (05/22/22 21:00) Magnesium Hydroxide Oral Susp (Mom Oral (05/22/22 12:30) Therapeutic Multivitamin Tab (Vitamins, (05/23/22 07:00) Non-Formulary Medication (Non-Formulary (05/22/22 21:00) Omeprazole (Non-Formulary) (Prilosec (No (05/22/22 16:00) Acetaminophen Tablet (Tylenol Tablet) (05/22/22 12:30) Ondansetron Injection (Zofran Injectio (05/22/22 12:30) Amlodipine Tablet (Norvasc Tablet) (05/23/22 09:00) Morphine Injection (Morphine Injection (05/22/22 12:30) Oxycodone Immediate Rel Tablet (Oxyir Ta (05/22/22 12:30) Oxygen Delivery Set Up (05/22/22 12:19) Cbc With Automated Diff (05/23/22 06:00) Comprehensive Metabolic Panel (05/23/22 06:00) Flu High Dose Quad 1802-0112 (Fluzone Hi (05/22/22 13:30) Patient Visit (05/22/22 ) Pt Eval Moderate Complexity (05/22/22 ) Functional Activities, Ea 15 (05/22/22 ) Patient Visit (05/22/22 ) Speech Sound Lang Comp (05/22/22 ) Treat. Speech/Lang/Voice (05/22/22 ) Ensure Plus Vanilla (05/22/22 13:43) Patient Visit (05/22/22 ) Functional Activities, Ea 15 (05/22/22 ) Exercise Therap, Ea 15 Min (05/22/22 ) Gait Training, Ea 15 Min (05/22/22 ) Manual Differential (05/23/22 05:23) Amlodipine Tablet (Norvasc Tablet) (05/23/22 10:45) Amlodipine Tablet (Norvasc Tablet) (05/24/22 09:00) Fluid Restriction (05/23/22 10:35) Iron Test (Fe) (05/23/22 10:56) Vitamin B 12 (05/23/22 10:56) Iron Sucrose Injection (Venofer Injectio (05/23/22 11:00) Cyanocobalamin Injection (Vitamin B-12 I (05/23/22 11:00) Cyanocobalamin Tablet (Vitamin B-12 Tabl (05/24/22 07:00) Patient Visit (05/23/22 ) Exercise Therap, Ea 15 Min (05/23/22 ) Gait Training, Ea 15 Min (05/23/22 ) Functional Activities, Ea 15 (05/23/22 ) Dys3 Advanced (05/23/22 Lunch) General/Regular (05/23/22 Dinner) Rehab Nursing Orders: Ongoing Assess. of Cognitive Status, Ongoing Assess. of Function Status, Bladder Management, Bladder Scan, Bladder Training, Bowel Management, Bowel Training, Disease Management & Educaiton, DVT Prophylaxis, Fall Prevention, Fluid/Electrolyte/Nutrition Mgmt, Infection Prevention, Medication Management & Education, Management of Risks & Complications, Management of Skin Intergrity, Nutrition Management, Pain Management, Patient/Family Support, Safety Management, Weight Bearing Precaution Intensity of Therapy to be met Patient to be seen: Min.3h per day/5 of 7d PT IPOC Problem List: Activity Tolerance, Functional Strength, Safety, Balance, Gait, Transfer, Bed Mobility, ROM Treatment Plan: Continue Plan of Care Bed Mobility, Education, Functional Activity Keaton, Functional Strength, Group Therapy, Gait, Safety, Therapeutic Exercise, Transfers Treatment Duration: Jun 12, 2022 Frequency: At least 5 of 7 days/Wk (IRF) Estimated Hrs Per Day: 1.5 hours per day OT IPOC Problems: Decreased Safety Aware, Impaired Funct Balance OT Treatment, Training and Edu: Yes Plan of Care: ADL Retraining, Functional Mobility, UE Funct Exercise/Act Treatment Duration: Jun 05, 2022 Frequency: At least 5 of 7 days/Wk (IRF) Estimated Hrs Per Day: 1.[address] IPOC Speech Therapy Treatment Plan: Discontinue ST Treatment Duration: May 22, 2022 Frequency: 1 time per week Estimated Hrs Per Day: .5 hour per day Supervisor Labor Gang/Case Mgmt Supervisor Labor Gang/Case Managemen: Discharge Planning Dietitian/Cake Icer Dietitian/Cake Icer to monitor nutritional status and make changes and/or recommendations as needed and work with speech pathology on dietary upgrades as the occur. Physician IPOC Medical Issues being managed closely and that require the 24 hour availability of a physician: Recent hip replacement with advanced age with iron deficiency and hyponatremia will require close monitoring during ARU course in order to maintain aggressive therapy Medical Issues: Bowel/Bladder Function, DVT Prophylaxis, Falls Precautions, Fluid/Electrolyte/Nutrition Balance, Infection Protection, Pain Management Brief Synthesis of Preadmission Screen, Post-Admission Evaluation, and Therapy Evaluations: PT OT will focus on regaining function in order to return back to baseline independent function to go home at [place] Medical Prognosis: Good Anticipated Length of Stay: 7 days GAB HIGH DO May 23, 2022 06:00
[2022-05-23 06:02] LABS: BASOPHILS % (AUTO) 0 % (0-10); EOSINOPHILS # (AUTO) 0.2 10^3/uL (0.0-0.3); EOSINOPHILS % (AUTO) 4 % (0-10); HEMATOCRIT 26 % (35-52); HEMOGLOBIN 8.8 g/dL (11.5-16.0); LYMPHOCYTES # (AUTO) 0.4 10^3/uL (1.0-4.0); LYMPHOCYTES % (AUTO) 6 % (12-44); MEAN CORPUSCULAR HEMOGLOBIN 28 pg (25-34); MEAN CORPUSCULAR HGB CONC 34 g/dL (32-36); MEAN CORPUSCULAR VOLUME 83 fL (80-99); MEAN PLATELET VOLUME 10.8 fL (9.0-12.2); MONOCYTES # (AUTO) 0.6 10^3/uL (0.0-1.0); MONOCYTES % (AUTO) 9 % (0-12); NEUTROPHILS % (AUTO) 80 % (42-75); PLATELET COUNT 396 10^3/uL (130-400); WHITE BLOOD COUNT 6.3 10^3/uL (4.3-11.0)
[2022-05-23] MEDS: OMEPRAZOLE 20 MG (PriLOSEC) CAP NON-FORMULARY PO SCH ×2 (06:05→16:12)
[2022-05-23 06:39] LABS: BASOPHILS % (MANUAL) 1 %; EOSINOPHILS % (MANUAL) 3 %; LYMPHOCYTES % (MANUAL) 5 %; MONOCYTES % (MANUAL) 11 %; NEUTROPHILS % (MANUAL) 80 %
[2022-05-23 06:40] LABS: ANISOCYTOSIS SLIGHT; HYPOCHROMASIA SLIGHT; MICROCYTOSIS SLIGHT
[2022-05-23] MEDS: MULTIVIT W/MINERALS TAB (THERAGRAN M) PO SCH (06:44)
[2022-05-23 07:18] VITALS: BP 169/61
[2022-05-23] MEDS: DOCUSATE SODIUM 100 MG (COLACE) CAP PO SCH ×2 (07:58→20:57)
[2022-05-23] MEDS: CELECOXIB 100 MG (CeleBREX) CAP PO SCH ×2 (07:58→20:24)
[2022-05-23] MEDS: SENNA W/DOCUSATE (SENOKOT S) TABLET PO SCH ×2 (07:58→20:58)
[2022-05-23] MEDS: ASPIRIN E.C. 81 MG (ECOTRIN) TAB PO SCH ×2 (07:58→17:51)
[2022-05-23] MEDS: DORZOLAMIDE/TIMOLOL (COSOPT) 2-0.68% 10 ML BTL OP SCH ×2 (08:00→20:23)
[2022-05-23] MEDS: polyethylene glycoL POWDER 17 GM (MIRALAX) PACK PO SCH ×2 (08:02→20:58)
[2022-05-23] MEDS: amLODIPine 5 MG (NORVASC) TAB PO SCH (08:03)
--- NOTE | 2022-05-23 08:18 | Physician Query Clarification ---
PQ-Intro New Diagnosis Admission/Discharge Admission Date: May 22, 2022 at 11:15 Discharge Date: Dr. Mccullough, The medical record reflects the following clinical scenario: History/Risk Factors: S/P Rt. THR, OA Clinical Findings: rt THR Treatment: Rehab Question: What condition best reflects the above clinical scenario? What is the condition responsible for the Rt. THR? Please document a response in the Progress Noter or Discharge Summary. 1. Osteoarthritis Rt. hip 2. Other, with explanation of the clinical findings. 3. Clinically undetermined, no explanation for the clinical findings. PHYSICIAN RESPONSE What condition reflects above: 1 In responding to this query, please exercise your independent professional judgment. The purpose of this communication is to more accurately reflect the complexity of your patients condition. The fact that a question is asked does not imply that any particular answer is desired or expected. Thank you for your timely response to this clarification. Requestors name: [place] THIS PHYSICIAN QUERY FORM IS A PERMANENT PART OF THE MEDICAL RECORD [place] CARLOS May 23, 2022 08:18 GAB MCCULLOUGH DO May 23, 2022 10:59
--- NOTE | 2022-05-23 10:34 | Physical Therapy Daily Note ---
PT Daily Note-Current Subjective Pt. agrees to Rx, states she sleeps a lot of the time at home in her late husbands lift recline chair . Pt. states she became uncomfortable here about 230 in the morning and got up into the recliner. This WING MAILER MACHINE OPERATOR had pts standard recliner moved from room and switched with a lift recline chair. Pt. was happy to be able to recline the head to relax etc " just like home" Pain Numeric Pain Scale: 3 Location: Right Location Body Site: Hip Pain Description: Ache Section J - Health Conditions 1. Rarely or not at all 2. Occasionally 3. Frequently 4. Almost constantly 8. Unable to answer Pain Effect on Sleep: 1 Pain Interference with Therapy: 1 Pain Interference w/Day-to-Day: 1 Mental Status Patient Orientation: Normal For Age Transfers SCALE: Activities may be completed with or without assistive devices. 4-Stmaqrnedw-nrykfmn completes the activity by him/herself with no assistance from a helper. 5-Set-up or Clean-up Assistance-helper sets up or cleans up; patient completes activity. [place] assists only prior to or following the activity. 4-Supervision or Touching Assistance-helper provides verbal cues and/or touching/steadying and/or contact guard assistance as patient completes activity. Assistance may be provided throughout the activity or intermittently. 3-Partial/Moderate Assistance-helper does LESS THAN HALF the effort. Union lifts, holds or supports trunk or limbs, but provides less than half the effort. 2-Substantial/Maximal Assistance-helper does MORE THAN HALF the effort. Union lifts or holds trunk or limbs and provides more than half the effort. 2-Uxjjubfcg-yuoxzf does ALL the effort. Patient does none of the effort to complete the activity. Or, the assistance of 2 or more helpers is required for the patient to complete the activity. If activity was not attempted, code reason: 7-Patient Refused. 9-Not Applicable-not attempted and the patient did not perform the activity before the current illness, exacerbation or injury. 10-Not Attempted due to Environmental Limitations-(lack of equipment, weather restraints, etc.). 88-Not Attempted due to Medical Conditions or Safety Concerns. Roll Left & Right (QC): 6 Sit to Lying (QC): 6 Lying to Sitting/Side of Bed(Q: 6 Sit to Stand (QC): 4 Chair/Nrp-ui-Jcbwd Xfer(QC): 4 Toilet Transfer (QC): 6 Weight Bearing Right Lower Extremity: Right Weight Bearing/Tolerated Gait Training Does the Patient Walk?: Yes Walk 10 feet (QC): 4 Walk 50 ft with 2 Turns(QC): 4 Walk 150 ft (QC): 4 Gait Persons Needed: 1 Gait Assistive Device: FWW 165ft x 2 slow, WBOS, FWW, instructed to stay closer to device as pt scoots it very far in front of her Exercises Supine Ex: Ankle pumps, Quad Set, Glut sets, Heel Slides, Short Arc Quads, Scooting (up in chair), Straight leg raise (assisted), Hip abd/add (assisted) Supine Reps: 15 (x2) Seated Therapy Exercises: Ankle pumps, Sit to stand, Long arc quads Seated Reps: 15 NuStep Minutes: 10 NuStep Workload: 2 Treatments TRFs, gait, toileting, nustep, LE ex, Assessment Current Status: Good Progress PT Short Term Goals Short Term Goals Time Frame: May 29, 2022 Roll Left & Right: 6 Sit to lyin (CGA) Lying to sitting on side of be: 4 (CGA) Sit to stand: 4 (SBA) Chair/irx-gf-szpah transfer: 4 (SBA) Walk 10 feet: 4 (SBA) Walk 50 feet with two turns: 4 (SBA) Walk 150 feet: 4 (SBA) PT Fpc Goals Fpc Goals PT Fpc Goals Time Frame: Jun 12, 2022 Roll Left & Right (QC): 6 Sit to Lying (QC): 6 Lying-Sitting on Side/Bed(QC): 6 Sit to Stand (QC): 6 Chair/Nmm-qy-Ycfuj Xfer(QC): 6 Toilet Transfer (QC): 6 Car Transfer (QC): 6 Does the Patient Walk: Yes Walk 10 feet (QC): 6 Walk 50ft with 2 Turns (QC): 6 Walk 150 ft (QC): 6 Walking 10ft on Uneven Surface: 6 1 Step (curb) (QC): 4 (BA) 4 Steps (QC): 4 (SBA) 12 Steps (QC): 88 Picking up an Object (QC): 4 (SBA using sergeant missile crewman) Wheel 50 feet with 2 turns (QC: 9 Wheel 150 feet: 9 PT Plan Treatment/Plan Treatment Plan: Continue Plan of Care Treatment Plan: Bed Mobility, Education, Functional Activity Keaton, Functional Strength, Group Therapy, Gait, Safety, Therapeutic Exercise, Transfers Treatment Duration: Jun 12, 2022 Frequency: At least 5 of 7 days/Wk (IRF) Estimated Hrs Per Day: 1.5 hours per day Patient and/or Family Agrees t: Yes Safety Risks/Education Patient Education: Gait Training, Transfer Techniques, Reviewed Precautions, Correct Positioning, Disease Process, Safety Issues Teaching Recipient: Patient Teaching Methods: Demonstration, Discussion Response to Teaching: Verbalize Understanding, Return Demonstration, Reinforcement Needed Time Time In: 900 Time Out: 1030 Total Billed Treatment Time: 90 Total Billed Treatment 1,EX35m,GT25m,FA30m RAFAEL HASTINGS WING MAILER MACHINE OPERATOR May 23, 2022 10:34
[2022-05-23] MEDS ORDERED: amLODIPine 5 MG (NORVASC) TAB PO ONE (10:45)
[2022-05-23 11:00] VITALS: BP 148/66
[2022-05-23] MEDS ORDERED: CYANOCOBALAMIN INJ 1000 MCG/ML IM ONE (11:00)
--- NOTE | 2022-05-23 11:56 | Occupational Ther Daily Note ---
OT Current Status-Daily Note Subjective Pt alert, sitting in recliner. Pt agrees to therapy. Pt c/o minimal pain in hip at rest. Mental Status/Objective Patient Orientation: Person, Place, Time, Situation ADL-Treatment Pt used dressing stick to remove L and R sock. Pt used sock aide to don socks on L and R foot. Pt used dressing stick to lace L and R foot into underwear. Pt stood from recliner using FWW, to hike underwear over hips, SBA. Pt ambulated from therapy gym to bathroom and completed toileting task with SBA. Pt stood at the sink with FWW to complete hand hygiene with SBA. Pt ambulated back to recliner with FWW, SBA. Therapy Code Descriptions/Definitions Functional [place] Measure: 0=Not Assessed/NA 4=Minimal Assistance 1=Total Assistance 5=Supervision or Setup 2=Maximal Assistance 6=Modified [place] 3=Moderate Assistance 7=Complete IndependenceSCALE: Activities may be completed with or without assistive devices. 4-Xqhmjweedn-wpqmgyr completes the activity by him/herself with no assistance from a helper. 5-Set-up or Clean-up Assistance-helper sets up or cleans up; patient completes activity. [place] assists only prior to or following the activity. 4-Supervision or Touching Assistance-helper provides verbal cues and/or touching/steadying and/or contact guard assistance as patient completes activity. Assistance may be provided throughout the activity or intermittently. 3-Partial/Moderate Assistance-helper does LESS THAN HALF the effort. [place] lifts, holds or supports trunk or limbs, but provides less than half the effort. 2-Substantial/Maximal Assistance-helper does MORE THAN HALF the effort. [place] lifts or holds trunk or limbs and provides more than half the effort. 4-Wmgxpwhvx-zwhiyn does ALL the effort. Patient does none of the effort to complete the activity. Or, the assistance of 2 or more helpers is required for the patient to complete the activity. If activity was not attempted, code reason: 7-Patient Refused. 9-Not Applicable-not attempted and the patient did not perform the activity before the current illness, exacerbation or injury. 10-Not Attempted due to Environmental Limitations-(lack of equipment, weather restraints, etc.). 88-Not Attempted due to Medical Conditions or Safety Concerns. Lower Body Dressing (QC): 4 On/Off Footwear: 4 Toileting Hygiene (QC): 4 Toilet Transfer (QC): 4 Other Treatment Pt ambulated to therapy gym with BRYAN RUANO. Pt completed 10 reps of 5 different exercises with L and R UE after skilled education and demonstration. Pt required no breaks between reps. B UE gross and fine motor exercises complete to increase strength and activity tolerance for daily functional tasks. Pt completed fine motor task, using pincer grasp with L/R UE. Pt pinched resistant clips with L and R UE. Pt stood with BRYAN RUANO to throw objects and transfer objects with L and R UE crossing midline. Pt completed 2 minutes of UE molly exercises. Pt ambulated back to room with BRYAN RUANO. Pt in recliner at end of session. Phone and call light in reach. All needs met in room. Education OT Patient Education: Home exercise program, Use of adapted equipment Teaching Recipient: Patient Teaching Methods: Demonstration, Discussion Response to Teaching: Verbalize Understanding, Return Demonstration OT Short Term Goals Short Term Goals Time Frame: May 29, 2022 Eatin Oral hygiene: 5 Toileting hygiene: 5 Shower/bathe self: 5 Upper body dressin Lower body dressin Putting on/taking off footwear: 4 OT Fci Goals Fci Goals Time Frame: Jun 05, 2022 Acute change in mental status: 0 Inattention: 0 Disorganized thinkin Altered level of consciousness: 0 Eating (QC): 6 Oral Hygiene (QC): 6 Toileting Hygiene (QC): 6 Shower/Bathe Self (QC): 6 Upper Body Dressing (QC): 6 Lower Body Dressing (QC): 6 On/Off Footwear (QC): 6 (With AE.) Additional Goals: 1-Demonstrate ADL Tasks, 2-Verbalize Understanding, 3- ImproveStrength/[place] 1=Demonstrate adherence to instructed precautions during ADL tasks. 2=Patient will verbalize/demonstrate understanding of assistive devices/modifications for ADL. 3=Patient will improve strength/tolerance for activity to enable patient to perform ADL's. OT Education/Plan Problem List/Assessment Assessment: Decreased Safety Aware, Impaired Funct Balance, Impaired Self-Care Skills Discharge Recommendations Plan/Recommendations: Continue POC Treatment Plan/Plan of Care Patient would benefit from OT for education, treatment and training to promote independence in ADL's, mobility, safety and/or upper extremity function for ADL's. Plan of Care: ADL Retraining, Functional Mobility, UE Funct Exercise/Act Treatment Duration: Jun 05, 2022 Frequency: At least 5 of 7 days/Wk (IRF) Estimated Hrs Per Day: 1.5 hours per day Agreement: Yes Rehab Potential: Good Time/GCodes Start Time: 10:30 Stop Time: 12:00 Total Time Billed (hr/min): 90 Billed Treatment Time 1 visit ADL 2 (30 min) EX 2 (30 min) FA 2 (30 min) KEN JOHN May 23, 2022 11:56
[2022-05-23] MEDS: IRON SUCROSE 200 MG/10 ML (VENOFER) VIAL IV SCH (12:41)
[2022-05-23] MEDS: LATANOPROST 0.005% (XALATAN) OPHTH SOLN 2.5 ML OU SCH (20:23)
[2022-05-23] MEDS: SIMVASTATIN 20 MG TABLET PO SCH (20:24)
[2022-05-23 20:45] VITALS: BP 159/65
[2022-05-24] MEDS: OMEPRAZOLE 20 MG (PriLOSEC) CAP NON-FORMULARY PO SCH ×2 (06:01→16:07)
[2022-05-24] MEDS: MULTIVIT W/MINERALS TAB (THERAGRAN M) PO SCH (06:32)
[2022-05-24] MEDS: CYANOCOBALAMIN 1,000 MCG (VITAMIN B-12) TABLET PO SCH (06:32)
[2022-05-24] MEDS: DOCUSATE SODIUM 100 MG (COLACE) CAP PO SCH ×2 (07:24→21:22)
[2022-05-24] MEDS: CELECOXIB 100 MG (CeleBREX) CAP PO SCH ×2 (07:24→21:22)
[2022-05-24] MEDS: ASPIRIN E.C. 81 MG (ECOTRIN) TAB PO SCH ×2 (07:24→18:32)
[2022-05-24] MEDS: SENNA W/DOCUSATE (SENOKOT S) TABLET PO SCH ×2 (07:24→21:22)
[2022-05-24] MEDS: DORZOLAMIDE/TIMOLOL (COSOPT) 2-0.68% 10 ML BTL OP SCH ×2 (07:26→21:21)
[2022-05-24 07:34] VITALS: BP 165/66
[2022-05-24] MEDS: amLODIPine 5 MG (NORVASC) TAB PO SCH (07:39)
--- NOTE | 2022-05-24 08:19 | Occupational Ther Daily Note ---
OT Current Status-Daily Note Subjective Pt sleeping in bed, woke to name. Pt agrees to therapy. No c/o pain at this time. Nrsg reports that pt had pain pills ~0400. Mental Status/Objective Patient Orientation: Person, Place, Time, Situation Attachments: IV ADL-Treatment Pt able to use regular utensils and open containers/packages to eat independently. Pt agrees to shower. Independent bed mobility. Pt ambulates to bathroom using FWW. Transfers onto toilet using FWW and grabbars, independently. Completes toileting independently. Pt able to doff lower body clothing using FWW after AE given to pt. Pt doffed/donned upper body clothing by self after set up. Pt completed shower sitting on shower bench 50% of the time using LH sponge, grabbars and hand held shower by self, assist only for adjusting water temp. Pt required verbal cues for instruction on dressing stick to don lower body clothing, pt completed by self. Assist to don/doff SPRING hose. Pt able to use AE to don/doff regular socks/shoes. Pt stood at sink, to com plete oral care independently. After session, pt sitting in recliner with call light/phone in reach. All needs met in room. Therapy Code Descriptions/Definitions Functional [place] Measure: 0=Not Assessed/NA 4=Minimal Assistance 1=Total Assistance 5=Supervision or Setup 2=Maximal Assistance 6=Modified [place] 3=Moderate Assistance 7=Complete IndependenceSCALE: Activities may be completed with or without assistive devices. 5-Xtmxmmvqwk-pwlkxql completes the activity by him/herself with no assistance from a helper. 5-Set-up or Clean-up Assistance-helper sets up or cleans up; patient completes activity. [place] assists only prior to or following the activity. 4-Supervision or Touching Assistance-helper provides verbal cues and/or touching/steadying and/or contact guard assistance as patient completes activity. Assistance may be provided throughout the activity or intermittently. 3-Partial/Moderate Assistance-helper does LESS THAN HALF the effort. [place] lifts, holds or supports trunk or limbs, but provides less than half the effort. 2-Substantial/Maximal Assistance-helper does MORE THAN HALF the effort. [place] lifts or holds trunk or limbs and provides more than half the effort. 6-Qeqmjcqmy-aanthm does ALL the effort. Patient does none of the effort to complete the activity. Or, the assistance of 2 or more helpers is required for the patient to complete the activity. If activity was not attempted, code reason: 7-Patient Refused. 9-Not Applicable-not attempted and the patient did not perform the activity before the current illness, exacerbation or injury. 10-Not Attempted due to Environmental Limitations-(lack of equipment, weather restraints, etc.). 88-Not Attempted due to Medical Conditions or Safety Concerns. Eating (QC): 6 Oral Hygiene (QC): 6 Shower/Bathe Self (QC): 5 Upper Body Dressing (QC): 5 Lower Body Dressing (QC): 4 On/Off Footwear: 3 (mod A, assist only for SPRING hose.) Toileting Hygiene (QC): 6 Toilet Transfer (QC): 6 Education OT Patient Education: Modified ADL techniques Teaching Recipient: Patient Teaching Methods: Demonstration, Discussion Response to Teaching: Verbalize Understanding, Return Demonstration, Reinforcement Needed OT Short Term Goals Short Term Goals Time Frame: May 29, 2022 Eatin Oral hygiene: 5 Toileting hygiene: 5 Shower/bathe self: 5 Upper body dressin Lower body dressin Putting on/taking off footwear: 4 OT Hazardous Material Specialist Goals Hazardous Material Specialist Goals Time Frame: Jun 05, 2022 Acute change in mental status: 0 Inattention: 0 Disorganized thinkin Altered level of consciousness: 0 Eating (QC): 6 Oral Hygiene (QC): 6 Toileting Hygiene (QC): 6 Shower/Bathe Self (QC): 6 Upper Body Dressing (QC): 6 Lower Body Dressing (QC): 6 On/Off Footwear (QC): 6 (With AE.) Additional Goals: 1-Demonstrate ADL Tasks, 2-Verbalize Understanding, 3- ImproveStrength/[place] 1=Demonstrate adherence to instructed precautions during ADL tasks. 2=Patient will verbalize/demonstrate understanding of assistive devices/modifications for ADL. 3=Patient will improve strength/tolerance for activity to enable patient to perform ADL's. OT Education/Plan Problem List/Assessment Assessment: Impaired Self-Care Skills Discharge Recommendations Plan/Recommendations: Continue POC Treatment Plan/Plan of Care Patient would benefit from OT for education, treatment and training to promote independence in ADL's, mobility, safety and/or upper extremity function for ADL's. Plan of Care: ADL Retraining, Functional Mobility, UE Funct Exercise/Act Treatment Duration: Jun 05, 2022 Frequency: At least 5 of 7 days/Wk (IRF) Estimated Hrs Per Day: 1.5 hours per day Agreement: Yes Rehab Potential: Good Time/GCodes Start Time: 07:00 Stop Time: 08:30 Total Time Billed (hr/min): 90 Billed Treatment Time 1 visit-ADL 6 (90 min) KEN JOHN May 24, 2022 08:19
[2022-05-24] MEDS ORDERED: amLODIPine 5 MG (NORVASC) TAB PO SCH (09:00)
--- NOTE | 2022-05-24 09:52 | PM&R Progress Note ---
Subjective HPI/CC On Admission Date Seen by Provider: May 24, 2022 Time Seen by Provider: 12:00 Subjective/Events-last exam 05/24/2022: Doing very well Ambulating well Pain controlled Labs reviewed Fluid restriction maintained 05/23/2022: Patient doing well Sodium level is 128 Fluid restriction ordered No falls Pain controlled with Tylenol only Review of Systems General: Fatigue, Malaise Musculoskeletal: leg pain Objective Exam Vital Signs Vital Signs Date Time Temp Pulse Resp B/P (MAP) Pulse Ox O2 Delivery O2 Flow Rate FiO2 05/24/22 21:15 98 Room Air 05/24/22 20:10 36.7 67 18 157/69 (98) Capillary Refill : General Appearance: No Apparent Distress, WD/WN, Chronically ill, Thin HEENT: PERRL/EOMI, Normal ENT Inspection, Pharynx Normal Neck: Full Range of Motion, Normal Inspection, Non Tender, Supple, Carotid Bruit Respiratory: Chest Non Tender, Lungs Clear, Normal Breath Sounds, No Accessory Muscle Use, No Respiratory Distress Cardiovascular: Regular Rate, Rhythm, No Edema, No Gallop, No JVD, No Murmur, Normal Peripheral Pulses Gastrointestinal: Normal Bowel Sounds, No Organomegaly, No Pulsatile Mass, Non Tender, Soft Back: Normal Inspection, No CVA Tenderness, No Vertebral Tenderness Extremity: Normal Capillary Refill, Normal Inspection, Normal Range of Motion (limited ROM legs), Non Tender, No Calf Tenderness, No Pedal Edema Neurologic/Psychiatric: Alert, Oriented x3, No Motor/Sensory Deficits, Normal Mood/Affect Skin: Normal Color, Warm/Dry Lymphatic: No Adenopathy Results/Procedures Lab Patient resulted labs reviewed. FIM Transfers Therapy Code Descriptions/Definitions Functional [place] Measure: 0=Not Assessed/NA 4=Minimal Assistance 1=Total Assistance 5=Supervision or Setup 2=Maximal Assistance 6=Modified [place] 3=Moderate Assistance 7=Complete IndependenceSCALE: Activities may be completed with or without assistive devices. 6-Yzediorlxn-pihlqlz completes the activity by him/herself with no assistance from a helper. 5-Set-up or Clean-up Assistance-helper sets up or cleans up; patient completes activity. [place] assists only prior to or following the activity. 4-Supervision or Touching Assistance-helper provides verbal cues and/or yadi moustapha/steadying and/or contact guard assistance as patient completes activity. Assistance may be provided throughout the activity or intermittently. 3-Partial/Moderate Assistance-helper does LESS THAN HALF the effort. [place] lifts, holds or supports trunk or limbs, but provides less than half the effort. 2-Substantial/Maximal Assistance-helper does MORE THAN HALF the effort. [place] lifts or holds trunk or limbs and provides more than half the effort. 4-Qazxgbaqr-eretxh does ALL the effort. Patient does none of the effort to complete the activity. Or, the assistance of 2 or more helpers is required for the patient to complete the activity. If activity was not attempted, code reason: 7-Patient Refused. 9-Not Applicable-not attempted and the patient did not perform the activity before the current illness, exacerbation or injury. 10-Not Attempted due to Environmental Limitations-(lack of equipment, weather restraints, etc.). 88-Not Attempted due to Medical Conditions or Safety Concerns. Roll Left to Right (QC): 6 Sit to Lying (QC): 6 Sit to Stand (QC): 4 Chair/Gsn-qr-Hffnt Xfer(QC): 4 Car Transfer (QC): 4 Gait Training Does the Patient Walk?: Yes Walk 10 feet (QC): 4 Walk 50 ft with 2 Turns(QC): 4 Walk 150 ft (QC): 4 Walking 10ft/uneven surface-QC: 4 Gait Persons Needed: 1 Gait Assistive Device: FWW Wheelchair Training Wheel 50 ft with 2 turns (QC): 9 Wheel 150 ft (QC): 9 Stair Training #of Steps: 1 1 Step (curb) (QC): 4 4 Steps (QC): 88 12 Steps (QC): 88 Balance Picking up an Object (QC): 4 (CGA using a or first assist registered nurse) ADL-Treatment Eating (QC): 6 Oral Hygiene (QC): 7 Shower/Bathe Self (QC): 4 (SBA/CGA at times while in shower. Pt. did use LH sponge to wash feet with cues as she has one at home.) Upper Body Dressing (QC): 4 (SBA to don bra and shirt.) Lower Body Dressing (QC): 4 On/Off Footwear (QC): 4 Toileting Hygiene (QC): 4 Toilet Transfer (QC): 4 Assessment/Plan Assessment and Plan Assess & Plan/Chief Complaint A/P: Right total hip arthroplasty - The patient is being admitted to our comprehensive inpatient rehabilitation facility and can tolerate the intensity of service consisting of at least: 180 minutes of therapy a day, 5 out of 7 days a week. Pain can be managed with increased ambulation and Tramadol HCL as needed. Continue monitoring for opioid-induced constipation As pain continues to decrease, Tylenol or NSAIDs can be implemented instead. Surgical and medical staff to monitor wound healing. Osteoarthritis hypertension hypercholesterolemia pre-glaucoma cataracts GERD Advanced age Anemia Iron def Hyponatremia Plan: PT OT Monitor closely Fall risk 05/23/2022: Iron infusions 05/24/2022: Iron infusions Supportive care (1) Primary osteoarthritis of right hip GAB HIGH DO May 24, 2022 09:52
[2022-05-24] MEDS: polyethylene glycoL POWDER 17 GM (MIRALAX) PACK PO SCH ×2 (09:54→21:15)
--- NOTE | 2022-05-24 10:01 | Physical Therapy Daily Note ---
PT Daily Note-Current Subjective Pt. agrees to rx, no c/p pain states she is stronger Pain Location: No Pain Reported Section J - Health Conditions 1. Rarely or not at all 2. Occasionally 3. Frequently 4. Almost constantly 8. Unable to answer Pain Effect on Sleep: 1 Pain Interference with Therapy: 1 Pain Interference w/Day-to-Day: 1 Mental Status Patient Orientation: Normal For Age Transfers SCALE: Activities may be completed with or without assistive devices. 5-Qekmhnpfoi-negyxdv completes the activity by him/herself with no assistance from a helper. 5-Set-up or Clean-up Assistance-helper sets up or cleans up; patient completes activity. [place] assists only prior to or following the activity. 4-Supervision or Touching Assistance-helper provides verbal cues and/or touching/steadying and/or contact guard assistance as patient completes activity. Assistance may be provided throughout the activity or intermittently. 3-Partial/Moderate Assistance-helper does LESS THAN HALF the effort. [place] lifts, holds or supports trunk or limbs, but provides less than half the effort. 2-Substantial/Maximal Assistance-helper does MORE THAN HALF the effort. [place] lifts or holds trunk or limbs and provides more than half the effort. 4-Efuzotqqm-shaqma does ALL the effort. Patient does none of the effort to complete the activity. Or, the assistance of 2 or more helpers is required for the patient to complete the activity. If activity was not attempted, code reason: 7-Patient Refused. 9-Not Applicable-not attempted and the patient did not perform the activity before the current illness, exacerbation or injury. 10-Not Attempted due to Environmental Limitations-(lack of equipment, weather restraints, etc.). 88-Not Attempted due to Medical Conditions or Safety Concerns. Roll Left & Right (QC): 6 Sit to Lying (QC): 6 Lying to Sitting/Side of Bed(Q: 6 Sit to Stand (QC): 6 Chair/Gwh-ld-Buexy Xfer(QC): 6 Toilet Transfer (QC): 6 Weight Bearing Right Lower Extremity: Right Weight Bearing/Tolerated Gait Training Does the Patient Walk?: Yes Walk 10 feet (QC): 6 Walk 50 ft with 2 Turns(QC): 6 Walk 150 ft (QC): 6 Gait Persons Needed: 1 Gait Assistive Device: FWW WBOS, toe in bilat, varum at knees Exercises Supine Ex: Ankle pumps, Quad Set, Rolling, Glut sets, Heel Slides, Short Arc Quads, Straight leg raise (assisted right), Hip abd/add Supine Reps: 20 Seated Therapy Exercises: Ankle pumps, Sit to stand, Long arc quads Seated Reps: 20 NuStep Minutes: 10 NuStep Workload: 2 Treatments TRFs, gait, ex Assessment Current Status: Good Progress PT Short Term Goals Short Term Goals Time Frame: May 29, 2022 Roll Left & Right: 6 Sit to lyin (CGA) Lying to sitting on side of be: 4 (CGA) Sit to stand: 4 (SBA) Chair/qhm-fm-wowbj transfer: 4 (SBA) Walk 10 feet: 4 (SBA) Walk 50 feet with two turns: 4 (SBA) Walk 150 feet: 4 (SBA) PT Group Home Goals Newspaper Peddler Goals PT Newspaper Peddler Goals Time Frame: Jun 12, 2022 Roll Left & Right (QC): 6 Sit to Lying (QC): 6 Lying-Sitting on Side/Bed(QC): 6 Sit to Stand (QC): 6 Chair/Rkm-zh-Zmwyq Xfer(QC): 6 Toilet Transfer (QC): 6 Car Transfer (QC): 6 Does the Patient Walk: Yes Walk 10 feet (QC): 6 Walk 50ft with 2 Turns (QC): 6 Walk 150 ft (QC): 6 Walking 10ft on Uneven Surface: 6 1 Step (curb) (QC): 4 (BA) 4 Steps (QC): 4 (SBA) 12 Steps (QC): 88 Picking up an Object (QC): 4 (SBA using electromechanical equipment tester) Wheel 50 feet with 2 turns (QC: 9 Wheel 150 feet: 9 PT Plan Treatment/Plan Treatment Plan: Continue Plan of Care Treatment Plan: Bed Mobility, Education, Functional Activity [place], Functional Strength, Group Therapy, Gait, Safety, Therapeutic Exercise, Transfers Treatment Duration: Jun 12, 2022 Frequency: At least 5 of 7 days/Wk (IRF) Estimated Hrs Per Day: 1.5 hours per day Patient and/or Family Agrees t: Yes Safety Risks/Education Patient Education: Transfer Techniques, Reviewed Precautions, Correct Positioning, Safety Issues Teaching Recipient: Patient Teaching Methods: Demonstration, Discussion Response to Teaching: Verbalize Understanding, Return Demonstration, Reinforcement Needed Time Time In: 830 Time Out: 1000 Total Billed Treatment Time: 90 Total Billed Treatment 1,GT25m,FA30m,EX35m RAFAEL HASTINGS HAIR DRYER May 24, 2022 10:01
[2022-05-24 20:10] VITALS: BP 157/69
[2022-05-24] MEDS: LATANOPROST 0.005% (XALATAN) OPHTH SOLN 2.5 ML OU SCH (21:20)
[2022-05-24] MEDS: SIMVASTATIN 20 MG TABLET PO SCH (21:21)
[2022-05-25] MEDS: OMEPRAZOLE 20 MG (PriLOSEC) CAP NON-FORMULARY PO SCH ×2 (06:05→16:52)
[2022-05-25] MEDS: CYANOCOBALAMIN 1,000 MCG (VITAMIN B-12) TABLET PO SCH (06:06)
[2022-05-25] MEDS: MULTIVIT W/MINERALS TAB (THERAGRAN M) PO SCH (06:06)
[2022-05-25] MEDS: ASPIRIN E.C. 81 MG (ECOTRIN) TAB PO SCH ×2 (07:34→17:51)
[2022-05-25] MEDS: polyethylene glycoL POWDER 17 GM (MIRALAX) PACK PO SCH ×2 (07:34→21:23)
[2022-05-25] MEDS: CELECOXIB 100 MG (CeleBREX) CAP PO SCH ×2 (07:34→21:24)
[2022-05-25] MEDS: DORZOLAMIDE/TIMOLOL (COSOPT) 2-0.68% 10 ML BTL OP SCH ×2 (07:35→21:23)
[2022-05-25] MEDS: IRON SUCROSE 200 MG/10 ML (VENOFER) VIAL IV SCH (07:35)
[2022-05-25] MEDS: DOCUSATE SODIUM 100 MG (COLACE) CAP PO SCH ×2 (07:35→21:24)
[2022-05-25] MEDS: amLODIPine 5 MG (NORVASC) TAB PO SCH (07:38)
[2022-05-25] MEDS: SENNA W/DOCUSATE (SENOKOT S) TABLET PO SCH ×2 (07:42→21:24)
--- NOTE | 2022-05-25 08:14 | PM&R Progress Note ---
Subjective HPI/CC On Admission Date Seen by Provider: May 25, 2022 Time Seen by Provider: 12:30 Subjective/Events-last exam 05/25/2022: Patient doing well Pain is controlled Could not find an IV so we will hold iron infusion 05/24/2022: Doing very well Ambulating well Pain controlled Labs reviewed Fluid restriction maintained 05/23/2022: Patient doing well Sodium level is 128 Fluid restriction ordered No falls Pain controlled with Tylenol only Review of Systems General: Fatigue, Malaise Musculoskeletal: leg pain Objective Exam Vital Signs Vital Signs Date Time Temp Pulse Resp B/P (MAP) Pulse Ox O2 Delivery O2 Flow Rate FiO2 05/25/22 08:42 36.4 72 18 136/64 (88) 98 Room Air Capillary Refill : General Appearance: No Apparent Distress, WD/WN, Chronically ill, Thin HEENT: PERRL/EOMI, Normal ENT Inspection, Pharynx Normal Neck: Full Range of Motion, Normal Inspection, Non Tender, Supple, Carotid Bruit Respiratory: Chest Non Tender, Lungs Clear, Normal Breath Sounds, No Accessory Muscle Use, No Respiratory Distress Cardiovascular: Regular Rate, Rhythm, No Edema, No Gallop, No JVD, No Murmur, Normal Peripheral Pulses Gastrointestinal: Normal Bowel Sounds, No Organomegaly, No Pulsatile Mass, Non Tender, Soft Back: Normal Inspection, No CVA Tenderness, No Vertebral Tenderness Extremity: Normal Capillary Refill, Normal Inspection, Normal Range of Motion (limited ROM legs), Non Tender, No Calf Tenderness, No Pedal Edema Neurologic/Psychiatric: Alert, Oriented x3, No Motor/Sensory Deficits, Normal Mood/Affect Skin: Normal Color, Warm/Dry Lymphatic: No Adenopathy Results/Procedures Lab Patient resulted labs reviewed. FIM Transfers Therapy Code Descriptions/Definitions Functional [place] Measure: 0=Not Assessed/NA 4=Minimal Assistance 1=Total Assistance 5=Supervision or Setup 2=Maximal Assistance 6=Modified [place] 3=Moderate Assistance 7=Complete IndependenceSCALE: Activities may be completed with or without assistive devices. 4-Aeswsezkgm-iitkfuy completes the activity by him/herself with no assistance from a helper. 5-Set-up or Clean-up Assistance-helper sets up or cleans up; patient completes activity. [place] assists only prior to or following the activity. 4-Supervision or Touching Assistance-helper provides verbal cues and/or touching/steadying and/or contact guard assistance as patient completes activity. Assistance may be provided throughout the activity or intermittently. 3-Partial/Moderate Assistance-helper does LESS THAN HALF the effort. [place] lifts, holds or supports trunk or limbs, but provides less than half the effort. 2-Substantial/Maximal Assistance-helper does MORE THAN HALF the effort. [place] lifts or holds trunk or limbs and provides more than half the effort. 1-Pcizefnwq-gnnuwh does ALL the effort. Patient does none of the effort to complete the activity. Or, the assistance of 2 or more helpers is required for the patient to complete the activity. If activity was not attempted, code reason: 7-Patient Refused. 9-Not Applicable-not attempted and the patient did not perform the activity before the current illness, exacerbation or injury. 10-Not Attempted due to Environmental Limitations-(lack of equipment, weather restraints, etc.). 88-Not Attempted due to Medical Conditions or Safety Concerns. Roll Left to Right (QC): 6 Sit to Lying (QC): 6 Sit to Stand (QC): 6 Chair/Asx-ua-Ujpct Xfer(QC): 6 Car Transfer (QC): 4 Gait Training Does the Patient Walk?: Yes Walk 10 feet (QC): 6 Walk 50 ft with 2 Turns(QC): 6 Walk 150 ft (QC): 6 Walking 10ft/uneven surface-QC: 4 Gait Persons Needed: 1 Gait Assistive Device: FWW Wheelchair Training Wheel 50 ft with 2 turns (QC): 9 Wheel 150 ft (QC): 9 Stair Training #of Steps: 1 1 Step (curb) (QC): 4 4 Steps (QC): 88 12 Steps (QC): 88 Balance Picking up an Object (QC): 4 (CGA using a technology strategist) ADL-Treatment Eating (QC): 6 Oral Hygiene (QC): 6 Shower/Bathe Self (QC): 5 Upper Body Dressing (QC): 5 Lower Body Dressing (QC): 4 On/Off Footwear (QC): 3 (mod A, assist only for SPRING hose.) Toileting Hygiene (QC): 6 Toilet Transfer (QC): 6 Assessment/Plan Assessment and Plan Assess & Plan/Chief Complaint A/P: Right total hip arthroplasty - The patient is being admitted to our comprehensive inpatient rehabilitation facility and can tolerate the intensity of service consisting of at least: 180 minutes of therapy a day, 5 out of 7 days a week. Pain can be managed with increased ambulation and Tramadol HCL as needed. Continue monitoring for opioid-induced constipation As pain continues to decrease, Tylenol or NSAIDs can be implemented instead. Surgical and medical staff to monitor wound healing. Osteoarthritis hypertension hypercholesterolemia pre-glaucoma cataracts GERD Advanced age Anemia Iron def Hyponatremia Plan: PT OT Monitor closely Fall risk 05/23/2022: Iron infusions 05/24/2022: Iron infusions Supportive care 05/25/2022: Will iron infusion due to lack of IV access (1) Primary osteoarthritis of right hip GAB HIGH DO May 25, 2022 08:14
[2022-05-25 08:42] VITALS: BP 136/64
--- NOTE | 2022-05-25 10:29 | Physical Therapy Daily Note ---
PT Daily Note-Current Subjective Pt. agrees to Rx, no c/o pain, slept ok, had brkfst Pain Location: No Pain Reported Section J - Health Conditions 1. Rarely or not at all 2. Occasionally 3. Frequently 4. Almost constantly 8. Unable to answer Pain Effect on Sleep: 1 Pain Interference with Therapy: 1 Pain Interference w/Day-to-Day: 1 Mental Status Patient Orientation: Normal For Age Transfers SCALE: Activities may be completed with or without assistive devices. 6-Gmnogsovih-naujfkm completes the activity by him/herself with no assistance from a helper. 5-Set-up or Clean-up Assistance-helper sets up or cleans up; patient completes activity. [place] assists only prior to or following the activity. 4-Supervision or Touching Assistance-helper provides verbal cues and/or touching/steadying and/or contact guard assistance as patient completes activity. Assistance may be provided throughout the activity or intermittently. 3-Partial/Moderate Assistance-helper does LESS THAN HALF the effort. [place] lifts, holds or supports trunk or limbs, but provides less than half the effort. 2-Substantial/Maximal Assistance-helper does MORE THAN HALF the effort. [place] lifts or holds trunk or limbs and provides more than half the effort. 9-Talsdmoao-blxpwl does ALL the effort. Patient does none of the effort to c omplete the activity. Or, the assistance of 2 or more helpers is required for the patient to complete the activity. If activity was not attempted, code reason: 7-Patient Refused. 9-Not Applicable-not attempted and the patient did not perform the activity before the current illness, exacerbation or injury. 10-Not Attempted due to Environmental Limitations-(lack of equipment, weather restraints, etc.). 88-Not Attempted due to Medical Conditions or Safety Concerns. all TRFs Mod I to SBA Weight Bearing Right Lower Extremity: Right Weight Bearing/Tolerated Gait Training Does the Patient Walk?: Yes Gait Assistive Device: FWW 160 ft x 2 FWW SBA Exercises Supine Ex: Bridging, Ankle pumps, Quad Set, Rolling, Glut sets, Heel Slides, Short Arc Quads, Straight leg raise, Hip abd/add Supine Reps: 12 Seated Therapy Exercises: Ankle pumps, Sit to stand, Long arc quads, Hip abd/add Seated Reps: 12 NuStep Minutes: 8 NuStep Workload: 1 Assessment Current Status: Good Progress PT Short Term Goals Short Term Goals Time Frame: May 29, 2022 Roll Left & Right: 6 Sit to lyin (CGA) Lying to sitting on side of be: 4 (CGA) Sit to stand: 4 (SBA) Chair/mgs-ac-vdltt transfer: 4 (SBA) Walk 10 feet: 4 (SBA) Walk 50 feet with two turns: 4 (SBA) Walk 150 feet: 4 (SBA) PT Nursing Home Goals Sterile Technician Goals PT Nursing Home Goals Time Frame: Jun 12, 2022 Roll Left & Right (QC): 6 Sit to Lying (QC): 6 Lying-Sitting on Side/Bed(QC): 6 Sit to Stand (QC): 6 Chair/Bzn-rl-Biijv Xfer(QC): 6 Toilet Transfer (QC): 6 Car Transfer (QC): 6 Does the Patient Walk: Yes Walk 10 feet (QC): 6 Walk 50ft with 2 Turns (QC): 6 Walk 150 ft (QC): 6 Walking 10ft on Uneven Surface: 6 1 Step (curb) (QC): 4 (BA) 4 Steps (QC): 4 (SBA) 12 Steps (QC): 88 Picking up an Object (QC): 4 (SBA using metal casket maker) Wheel 50 feet with 2 turns (QC: 9 Wheel 150 feet: 9 PT Plan Treatment/Plan Treatment Plan: Continue Plan of Care Treatment Plan: Bed Mobility, Education, Functional Activity [place], Functional Strength, Group Therapy, Gait, Safety, Therapeutic Exercise, Transfers Treatment Duration: Jun 12, 2022 Frequency: At least 5 of 7 days/Wk (IRF) Estimated Hrs Per Day: 1.5 hours per day Patient and/or Family Agrees t: Yes Safety Risks/Education Patient Education: Gait Training, Transfer Techniques, Reviewed Precautions, Disease Process, Safety Issues Teaching Recipient: Patient Teaching Methods: Demonstration, Discussion Response to Teaching: Verbalize Understanding, Return Demonstration, Reinforcement Needed Time Time In: 750 Time Out: 825 Total Billed Treatment Time: 35 Total Billed Treatment 1,GT20m,EX15m RAFAEL HASTINGS WAXED BAG MACHINE OPERATOR May 25, 2022 10:29
[2022-05-25] MEDS: FLEET ENEMA ADULT 1 EA BTL PR PRN ×2 (16:50→18:50)
[2022-05-25] MEDS: LACTULOSE SYRUP 10GM/15ML (ENULOSE) 30ML UDC PO PRN (16:51)
[2022-05-25 20:15] VITALS: BP 174/68
[2022-05-25] MEDS: SIMVASTATIN 20 MG TABLET PO SCH (21:24)
[2022-05-25] MEDS: LATANOPROST 0.005% (XALATAN) OPHTH SOLN 2.5 ML OU SCH (21:24)
[2022-05-26] MEDS: CYANOCOBALAMIN 1,000 MCG (VITAMIN B-12) TABLET PO SCH (06:05)
[2022-05-26] MEDS: MULTIVIT W/MINERALS TAB (THERAGRAN M) PO SCH (06:05)
[2022-05-26] MEDS: OMEPRAZOLE 20 MG (PriLOSEC) CAP NON-FORMULARY PO SCH ×2 (06:05→16:23)
--- NOTE | 2022-05-26 06:33 | PM&R Progress Note ---
Subjective HPI/CC On Admission Date Seen by Provider: May 26, 2022 Time Seen by Provider: 13:00 Subjective/Events-last exam 05/26/2022: Patient doing well Tylenol given for pain Supportive care will continue 05/25/2022: Patient doing well Pain is controlled Could not find an IV so we will hold iron infusion 05/24/2022: Doing very well Ambulating well Pain controlled Labs reviewed Fluid restriction maintained 05/23/2022: Patient doing well Sodium level is 128 Fluid restriction ordered No falls Pain controlled with Tylenol only Review of Systems General: Fatigue, Malaise Objective Exam Vital Signs Vital Signs Date Time Temp Pulse Resp B/P (MAP) Pulse Ox O2 Delivery O2 Flow Rate FiO2 05/26/22 09:33 Room Air 05/26/22 07:59 36.8 74 18 151/67 (95) 96 Capillary Refill : General Appearance: No Apparent Distress, WD/WN, Chronically ill, Thin HEENT: PERRL/EOMI, Normal ENT Inspection, Pharynx Normal Neck: Full Range of Motion, Normal Inspection, Non Tender, Supple, Carotid Bruit Respiratory: Chest Non Tender, Lungs Clear, Normal Breath Sounds, No Accessory Muscle Use, No Respiratory Distress Cardiovascular: Regular Rate, Rhythm, No Edema, No Gallop, No JVD, No Murmur, Normal Peripheral Pulses Gastrointestinal: Normal Bowel Sounds, No Organomegaly, No Pulsatile Mass, Non Tender, Soft Back: Normal Inspection, No CVA Tenderness, No Vertebral Tenderness Extremity: Normal Capillary Refill, Normal Inspection, Normal Range of Motion (limited ROM legs), Non Tender, No Calf Tenderness, No Pedal Edema Neurologic/Psychiatric: Alert, Oriented x3, No Motor/Sensory Deficits, Normal Mood/Affect Skin: Normal Color, Warm/Dry Lymphatic: No Adenopathy Results/Procedures Lab Patient resulted labs reviewed. FIM Transfers Therapy Code Descriptions/Definitions Functional [place] Measure: 0=Not Assessed/NA 4=Minimal Assistance 1=Total Assistance 5=Supervision or Setup 2=Maximal Assistance 6=Modified [place] 3=Moderate Assistance 7=Complete IndependenceSCALE: Activities may be completed with or without assistive devices. 5-Nowyflfmls-klxrvmm completes the activity by him/herself with no assistance from a helper. 5-Set-up or Clean-up Assistance-helper sets up or cleans up; patient completes activity. [place] assists only prior to or following the activity. 4-Supervision or Touching Assistance-helper provides verbal cues and/or touching/steadying and/or contact guard assistance as patient completes activity. Assistance may be provided throughout the activity or intermittently. 3-Partial/Moderate Assistance-helper does LESS THAN HALF the effort. [place] lifts, holds or supports trunk or limbs, but provides less than half the effort. 2-Substantial/Maximal Assistance-helper does MORE THAN HALF the effort. [place] lifts or holds trunk or limbs and provides more than half the effort. 9-Rcwdvgbcb-aumvtr does ALL the effort. Patient does none of the effort to complete the activity. Or, the assistance of 2 or more helpers is required for the patient to complete the activity. If activity was not attempted, code reason: 7-Patient Refused. 9-Not Applicable-not attempted and the patient did not perform the activity before the current illness, exacerbation or injury. 10-Not Attempted due to Environmental Limitations-(lack of equipment, weather restraints, etc.). 88-Not Attempted due to Medical Conditions or Safety Concerns. Roll Left to Right (QC): 6 Sit to Lying (QC): 6 Sit to Stand (QC): 6 Chair/Svg-zs-Sshnv Xfer(QC): 6 Car Transfer (QC): 4 Gait Training Does the Patient Walk?: Yes Walk 10 feet (QC): 6 Walk 50 ft with 2 Turns(QC): 6 Walk 150 ft (QC): 6 Walking 10ft/uneven surface-QC: 4 Gait Persons Needed: 1 Gait Assistive Device: FWW Wheelchair Training Wheel 50 ft with 2 turns (QC): 9 Wheel 150 ft (QC): 9 Stair Training #of Steps: 1 1 Step (curb) (QC): 4 4 Steps (QC): 88 12 Steps (QC): 88 Balance Picking up an Object (QC): 4 (CGA using a drum handler) ADL-Treatment Eating (QC): 6 Oral Hygiene (QC): 6 Shower/Bathe Self (QC): 5 Upper Body Dressing (QC): 5 Lower Body Dressing (QC): 4 On/Off Footwear (QC): 3 (mod A, assist only for SPRING hose.) Toileting Hygiene (QC): 6 Toilet Transfer (QC): 6 Assessment/Plan Assessment and Plan Assess & Plan/Chief Complaint A/P: Right total hip arthroplasty - The patient is being admitted to our comprehensive inpatient rehabilitation facility and can tolerate the intensity of service consisting of at least: 180 minutes of therapy a day, 5 out of 7 days a week. Pain can be managed with increased ambulation and Tramadol HCL as needed. Continue monitoring for opioid-induced constipation As pain continues to decrease, Tylenol or NSAIDs can be implemented instead. Surgical and medical staff to monitor wound healing. Osteoarthritis hypertension hypercholesterolemia pre-glaucoma cataracts GERD Advanced age Anemia Iron def Hyponatremia Plan: PT OT Monitor closely Fall risk 05/23/2022: Iron infusions 05/24/2022: Iron infusions Supportive care 05/25/2022: Will iron infusion due to lack of IV access 05/26/2022: Midline tomorrow (1) Primary osteoarthritis of right hip GAB HIGH DO May 26, 2022 06:33
[2022-05-26] MEDS: ASPIRIN E.C. 81 MG (ECOTRIN) TAB PO SCH ×2 (07:51→17:41)
[2022-05-26] MEDS: CELECOXIB 100 MG (CeleBREX) CAP PO SCH ×2 (07:51→21:28)
[2022-05-26] MEDS: DOCUSATE SODIUM 100 MG (COLACE) CAP PO SCH ×2 (07:52→21:30)
[2022-05-26] MEDS: DORZOLAMIDE/TIMOLOL (COSOPT) 2-0.68% 10 ML BTL OP SCH ×2 (07:53→21:29)
[2022-05-26] MEDS: amLODIPine 5 MG (NORVASC) TAB PO SCH (07:58)
[2022-05-26 07:59] VITALS: BP 151/67
[2022-05-26] MEDS: ACETAMINOPHEN 325 MG TABLET PO PRN (09:31)
[2022-05-26] MEDS: SENNA W/DOCUSATE (SENOKOT S) TABLET PO SCH ×2 (09:31→21:30)
[2022-05-26] MEDS: polyethylene glycoL POWDER 17 GM (MIRALAX) PACK PO SCH ×2 (09:31→21:30)
[2022-05-26 20:15] VITALS: BP 154/69
[2022-05-26] MEDS: SIMVASTATIN 20 MG TABLET PO SCH (21:28)
[2022-05-26] MEDS: LATANOPROST 0.005% (XALATAN) OPHTH SOLN 2.5 ML OU SCH (21:28)
--- NOTE | 2022-05-27 05:56 | PM&R Progress Note ---
Subjective HPI/CC On Admission Date Seen by Provider: May 27, 2022 Time Seen by Provider: 10:30 Subjective/Events-last exam 05/27/2022: Pt is doing pretty well Sodium level up to 132 Will give iron infusion after midline is placed 05/26/2022: Patient doing well Tylenol given for pain Supportive care will continue 05/25/2022: Patient doing well Pain is controlled Could not find an IV so we will hold iron infusion 05/24/2022: Doing very well Ambulating well Pain controlled Labs reviewed Fluid restriction maintained 05/23/2022: Patient doing well Sodium level is 128 Fluid restriction ordered No falls Pain controlled with Tylenol only Review of Systems General: Fatigue, Malaise Musculoskeletal: leg pain Objective Exam Vital Signs Vital Signs Date Time Temp Pulse Resp B/P (MAP) Pulse Ox O2 Delivery O2 Flow Rate FiO2 05/27/22 20:18 Room Air 05/27/22 19:45 36.4 78 16 159/77 (104) 97 Capillary Refill : General Appearance: No Apparent Distress, WD/WN, Chronically ill, Thin HEENT: PERRL/EOMI, Normal ENT Inspection, Pharynx Normal Neck: Full Range of Motion, Normal Inspection, Non Tender, Supple, Carotid Bruit Respiratory: Chest Non Tender, Lungs Clear, Normal Breath Sounds, No Accessory Muscle Use, No Respiratory Distress Cardiovascular: Regular Rate, Rhythm, No Edema, No Gallop, No JVD, No Murmur, Normal Peripheral Pulses Gastrointestinal: Normal Bowel Sounds, No Organomegaly, No Pulsatile Mass, Non Tender, Soft Back: Normal Inspection, No CVA Tenderness, No Vertebral Tenderness Extremity: Normal Capillary Refill, Normal Inspection, Normal Range of Motion (limited ROM legs), Non Tender, No Calf Tenderness, No Pedal Edema Neurologic/Psychiatric: Alert, Oriented x3, No Motor/Sensory Deficits, Normal Mood/Affect Skin: Normal Color, Warm/Dry Lymphatic: No Adenopathy Results/Procedures Lab Laboratory Tests 05/27/22 06:17 Patient resulted labs reviewed. FIM Transfers Therapy Code Descriptions/Definitions Functional [place] Measure: 0=Not Assessed/NA 4=Minimal Assistance 1=Total Assistance 5=Supervision or Setup 2=Maximal Assistance 6=Modified [place] 3=Moderate Assistance 7=Complete IndependenceSCALE: Activities may be completed with or without assistive devices. 8-Yzswtdykli-avspiwr completes the activity by him/herself with no assistance from a helper. 5-Set-up or Clean-up Assistance-helper sets up or cleans up; patient completes activity. [place] assists only prior to or following the activity. 4-Supervision or Touching Assistance-helper provides verbal cues and/or touching/steadying and/or contact guard assistance as patient completes activity. Assistance may be provided throughout the activity or intermittently. 3-Partial/Moderate Assistance-helper does LESS THAN HALF the effort. [place] lifts, holds or supports trunk or limbs, but provides less than half the effort. 2-Substantial/Maximal Assistance-helper does MORE THAN HALF the effort. [place] lifts or holds trunk or limbs and provides more than half the effort. 6-Oukhadppf-qdxewy does ALL the effort. Patient does none of the effort to comp lete the activity. Or, the assistance of 2 or more helpers is required for the patient to complete the activity. If activity was not attempted, code reason: 7-Patient Refused. 9-Not Applicable-not attempted and the patient did not perform the activity before the current illness, exacerbation or injury. 10-Not Attempted due to Environmental Limitations-(lack of equipment, weather restraints, etc.). 88-Not Attempted due to Medical Conditions or Safety Concerns. Roll Left to Right (QC): 6 Sit to Lying (QC): 6 Sit to Stand (QC): 6 Chair/Ksd-rl-Fznue Xfer(QC): 6 Car Transfer (QC): 4 Gait Training Does the Patient Walk?: Yes Walk 10 feet (QC): 6 Walk 50 ft with 2 Turns(QC): 6 Walk 150 ft (QC): 6 Walking 10ft/uneven surface-QC: 4 Gait Persons Needed: 1 Gait Assistive Device: FWW Wheelchair Training Wheel 50 ft with 2 turns (QC): 9 Wheel 150 ft (QC): 9 Stair Training #of Steps: 1 1 Step (curb) (QC): 4 4 Steps (QC): 88 12 Steps (QC): 88 Balance Picking up an Object (QC): 4 (CGA using a [place] helper) ADL-Treatment Eating (QC): 6 Oral Hygiene (QC): 6 Shower/Bathe Self (QC): 5 Upper Body Dressing (QC): 5 Lower Body Dressing (QC): 4 On/Off Footwear (QC): 3 (mod A, assist only for SPRING hose.) Toileting Hygiene (QC): 6 Toilet Transfer (QC): 6 Assessment/Plan Assessment and Plan Assess & Plan/Chief Complaint A/P: Right total hip arthroplasty - The patient is being admitted to our comprehensive inpatient rehabilitation facility and can tolerate the intensity of service consisting of at least: 180 minutes of therapy a day, 5 out of 7 days a week. Pain can be managed with increased ambulation and Tramadol HCL as needed. Continue monitoring for opioid-induced constipation As pain continues to decrease, Tylenol or NSAIDs can be implemented instead. Surgical and medical staff to monitor wound healing. Osteoarthritis hypertension hypercholesterolemia pre-glaucoma cataracts GERD Advanced age Anemia Iron def Hyponatremia Plan: PT OT Monitor closely Fall risk 05/23/2022: Iron infusions 05/24/2022: Iron infusions Supportive care 05/25/2022: Will iron infusion due to lack of IV access 05/26/2022: Midline tomorrow 05/27/2022: IV iron Continue aggressive therapy (1) Primary osteoarthritis of right hip GAB HIGH DO May 27, 2022 05:55
[2022-05-27 06:22] LABS: BASOPHILS # (AUTO) 0.1 10^3/uL (0.0-0.1); BASOPHILS % (AUTO) 1 % (0-10); EOSINOPHILS % (AUTO) 16 % (0-10); HEMATOCRIT 27 % (35-52); HEMOGLOBIN 9.2 g/dL (11.5-16.0); LYMPHOCYTES # (AUTO) 0.7 10^3/uL (1.0-4.0); LYMPHOCYTES % (AUTO) 11 % (12-44); MEAN CORPUSCULAR HEMOGLOBIN 28 pg (25-34); MEAN CORPUSCULAR HGB CONC 34 g/dL (32-36); MEAN CORPUSCULAR VOLUME 84 fL (80-99); MEAN PLATELET VOLUME 9.8 fL (9.0-12.2); MONOCYTES # (AUTO) 0.6 10^3/uL (0.0-1.0); MONOCYTES % (AUTO) 10 % (0-12); NEUTROPHILS # (AUTO) 3.9 10^3/uL (1.8-7.8); NEUTROPHILS % (AUTO) 60 % (42-75); PLATELET COUNT 541 10^3/uL (130-400); WHITE BLOOD COUNT 6.5 10^3/uL (4.3-11.0)
[2022-05-27 06:27] LABS: ALBUMIN 2.9 GM/DL (3.2-4.5); POTASSIUM 3.8 MMOL/L (3.6-5.0)
[2022-05-27] MEDS: MULTIVIT W/MINERALS TAB (THERAGRAN M) PO SCH (06:28)
[2022-05-27] MEDS: CYANOCOBALAMIN 1,000 MCG (VITAMIN B-12) TABLET PO SCH (06:28)
[2022-05-27] MEDS: OMEPRAZOLE 20 MG (PriLOSEC) CAP NON-FORMULARY PO SCH ×2 (06:28→16:42)
[2022-05-27 06:29] LABS: CALCIUM 8.3 MG/DL (8.5-10.1)
[2022-05-27 06:30] LABS: TOTAL PROTEIN 5.7 GM/DL (6.4-8.2)
[2022-05-27 06:32] LABS: BILIRUBIN,TOTAL 0.3 MG/DL (0.1-1.0)
[2022-05-27 06:33] LABS: CREATININE SERUM 0.57 MG/DL (0.60-1.30)
[2022-05-27] MEDS: ASPIRIN E.C. 81 MG (ECOTRIN) TAB PO SCH ×2 (07:22→18:39)
[2022-05-27] MEDS: polyethylene glycoL POWDER 17 GM (MIRALAX) PACK PO SCH ×2 (07:23→20:17)
[2022-05-27] MEDS: DOCUSATE SODIUM 100 MG (COLACE) CAP PO SCH ×2 (07:23→20:16)
[2022-05-27] MEDS: CELECOXIB 100 MG (CeleBREX) CAP PO SCH ×2 (07:23→20:11)
[2022-05-27] MEDS: amLODIPine 5 MG (NORVASC) TAB PO SCH (07:27)
[2022-05-27] MEDS: DORZOLAMIDE/TIMOLOL (COSOPT) 2-0.68% 10 ML BTL OP SCH ×2 (07:28→20:13)
[2022-05-27 07:50] VITALS: BP 173/72
[2022-05-27] MEDS: SENNA W/DOCUSATE (SENOKOT S) TABLET PO SCH ×3 (07:57→20:17)
--- NOTE | 2022-05-27 08:30 | Occupational Ther Daily Note ---
OT Current Status-Daily Note Subjective Pt sleeping in bed, woke easily to name. Pt agrees to therapy. No c/o pain. Mental Status/Objective Patient Orientation: Person, Place, Time, Situation ADL-Treatment Pt independent with eating. Pt agrees to shower. Independent with bed mobility. Independent with ambulating using FWW to/from bathroom. Independent with toileting and toilet transfer. Set up to manage water temp in shower then pt complete on own using shower bench, grabbar, LH sponge and hand held shower. After set up of clothing and lower body AE, pt able to complete upper/lower body dressing and footwear by self. Standing at sink, pt able to complete oral care and grooming independently. After session, pt sitting in recliner with call light/phone in reach. All needs met in room. Therapy Code Descriptions/Definitions Functional [place] Measure: 0=Not Assessed/NA 4=Minimal Assistance 1=Total Assistance 5=Supervision or Setup 2=Maximal Assistance 6=Modified [place] 3=Moderate Assistance 7=Complete IndependenceSCALE: Activities may be completed with or without assistive devices. 4-Bidprqutmp-ahesjgv completes the activity by him/herself with no assistance from a helper. 5-Set-up or Clean-up Assistance-helper sets up or cleans up; patient completes activity. [place] assists only prior to or following the activity. 4-Supervision or Touching Assistance-helper provides verbal cues and/or touching/steadying and/or contact guard assistance as patient completes activity. Assistance may be provided throughout the activity or intermittently. 3-Partial/Moderate Assistance-helper does LESS THAN HALF the effort. [place] lifts, holds or supports trunk or limbs, but provides less than half the effort. 2-Substantial/Maximal Assistance-helper does MORE THAN HALF the effort. [place] lifts or holds trunk or limbs and provides more than half the effort. 0-Fwujurgga-ljcnne does ALL the effort. Patient does none of the effort to complete the activity. Or, the assistance of 2 or more helpers is required for the patient to complete the activity. If activity was not attempted, code reason: 7-Patient Refused. 9-Not Applicable-not attempted and the patient did not perform the activity before the current illness, exacerbation or injury. 10-Not Attempted due to Environmental Limitations-(lack of equipment, weather restraints, etc.). 88-Not Attempted due to Medical Conditions or Safety Concerns. Eating (QC): 6 Oral Hygiene (QC): 6 Shower/Bathe Self (QC): 5 Upper Body Dressing (QC): 5 Lower Body Dressing (QC): 5 On/Off Footwear: 5 Toileting Hygiene (QC): 6 Toilet Transfer (QC): 6 OT Short Term Goals Short Term Goals Time Frame: May 29, 2022 Eatin Oral hygiene: 5 Toileting hygiene: 5 Shower/bathe self: 5 Upper body dressin Lower body dressin Putting on/taking off footwear: 4 OT Penitentiary Goals Penitentiary Goals Time Frame: Jun 05, 2022 Acute change in mental status: 0 Inattention: 0 Disorganized thinkin Altered level of consciousness: 0 Eating (QC): 6 Oral Hygiene (QC): 6 Toileting Hygiene (QC): 6 Shower/Bathe Self (QC): 6 Upper Body Dressing (QC): 6 Lower Body Dressing (QC): 6 On/Off Footwear (QC): 6 (With AE.) Additional Goals: 1-Demonstrate ADL Tasks, 2-Verbalize Understanding, 3- ImproveStrength/[place] 1=Demonstrate adherence to instructed precautions during ADL tasks. 2=Patient will verbalize/demonstrate understanding of assistive devices/modifications for ADL. 3=Patient will improve strength/tolerance for activity to enable patient to perform ADL's. OT Education/Plan Problem List/Assessment Assessment: Impaired Self-Care Skills Discharge Recommendations Plan/Recommendations: Continue POC Treatment Plan/Plan of Care Patient would benefit from OT for education, treatment and training to promote independence in ADL's, mobility, safety and/or upper extremity function for ADL's. Plan of Care: ADL Retraining, Functional Mobility, UE Funct Exercise/Act Treatment Duration: Jun 05, 2022 Frequency: At least 5 of 7 days/Wk (IRF) Estimated Hrs Per Day: 1.5 hours per day Agreement: Yes Rehab Potential: Good Time/GCodes Start Time: 07:00 Stop Time: 08:00 Total Time Billed (hr/min): 60 Billed Treatment Time 1 visit-ADL 4 (60 min) KEN JOHN May 27, 2022 08:30
--- NOTE | 2022-05-27 09:39 | Physical Therapy Daily Note ---
PT Daily Note-Current Subjective Pt sitting in recliner upon arrival. Pt agrees to PT. Pain Location: Right Location Body Site: Thigh Pain Description: Ache Comment: Reports during Ex but doesn't rate Section J - Health Conditions 1. Rarely or not at all 2. Occasionally 3. Frequently 4. Almost constantly 8. Unable to answer Pain Effect on Sleep: 1 Pain Interference with Therapy: 1 Pain Interference w/Day-to-Day: 1 Mental Status Patient Orientation: Person, Place, Time, Situation Transfers SCALE: Activities may be completed with or without assistive devices. 6-Cgdkvifdnr-tisiwpj completes the activity by him/herself with no assistance from a helper. 5-Set-up or Clean-up Assistance-helper sets up or cleans up; patient completes activity. [place] assists only prior to or following the activity. 4-Supervision or Touching Assistance-helper provides verbal cues and/or touching/steadying and/or contact guard assistance as patient completes activity. Assistance may be provided throughout the activity or intermittently. 3-Partial/Moderate Assistance-helper does LESS THAN HALF the effort. Blanch li fts, holds or supports trunk or limbs, but provides less than half the effort. 2-Substantial/Maximal Assistance-helper does MORE THAN HALF the effort. [place] lifts or holds trunk or limbs and provides more than half the effort. 4-Wfalzihhn-qftnhl does ALL the effort. Patient does none of the effort to complete the activity. Or, the assistance of 2 or more helpers is required for the patient to complete the activity. If activity was not attempted, code reason: 7-Patient Refused. 9-Not Applicable-not attempted and the patient did not perform the activity before the current illness, exacerbation or injury. 10-Not Attempted due to Environmental Limitations-(lack of equipment, weather restraints, etc.). 88-Not Attempted due to Medical Conditions or Safety Concerns. Sit to Lying (QC): 4 Lying to Sitting/Side of Bed(Q: 4 Sit to Stand (QC): 4 Weight Bearing Right Lower Extremity: Right Weight Bearing/Tolerated Gait Training Does the Patient Walk?: Yes Distance: 250' x2 Walk 10 feet (QC): 5 Walk 50 ft with 2 Turns(QC): 5 Walk 150 ft (QC): 4 Gait Persons Needed: 1 Gait Assistive Device: FWW Wheelchair Training Does the Pt Use a Wheelchair?: No Exercises Supine Ex: Ankle pumps, Quad Set, Glut sets, Heel Slides, Straight leg raise, Hip abd/add Supine Reps: 15 Seated Therapy Exercises: Ankle pumps, Long arc quads, Hip flexion, Glut set Seated Reps: 15 Treatments TF to standing, declining need for BR. Pt amb. in hallway, taking standing RB as needed. Pt completes Seated EX then lays on Therapy Mat for Supine Ex and Hamstring stretching due to tightness. Pt takes RB and uses NuStep for 15m at WL 3. Pt amb. in hallway and returns to room. Pt resting in recliner at end of tx with all needs met, call light in hand. Assessment Current Status: Good Progress Pt arianna. tx well. Pt reports tightness with some Ex so FIRE WATCHER assists with stretching of hamstrings. PT Short Term Goals Short Term Goals Time Frame: May 29, 2022 Roll Left & Right: 6 Sit to lyin (CGA) Lying to sitting on side of be: 4 (CGA) Sit to stand: 4 (SBA) Chair/ocu-jm-adesi transfer: 4 (SBA) Walk 10 feet: 4 (SBA) Walk 50 feet with two turns: 4 (SBA) Walk 150 feet: 4 (SBA) PT Penit[facility]iary Goals Waste/Materials Exchange Specialist Goals PT Waste/Materials Exchange Specialist Goals Time Frame: Jun 12, 2022 Roll Left & Right (QC): 6 Sit to Lying (QC): 6 Lying-Sitting on Side/Bed(QC): 6 Sit to Stand (QC): 6 Chair/Ahs-pl-Texyx Xfer(QC): 6 Toilet Transfer (QC): 6 Car Transfer (QC): 6 Does the Patient Walk: Yes Walk 10 feet (QC): 6 Walk 50ft with 2 Turns (QC): 6 Walk 150 ft (QC): 6 Walking 10ft on Uneven Surface: 6 1 Step (curb) (QC): 4 (BA) 4 Steps (QC): 4 (SBA) 12 Steps (QC): 88 Picking up an Object (QC): 4 (SBA using fisher clam) Wheel 50 feet with 2 turns (QC: 9 Wheel 150 feet: 9 PT Plan Treatment/Plan Treatment Plan: Continue Plan of Care Treatment Plan: Bed Mobility, Education, Functional Activity Keaton, Functional Strength, Group Therapy, Gait, Safety, Therapeutic Exercise, Transfers Treatment Duration: Jun 12, 2022 Frequency: At least 5 of 7 days/Wk (IRF) Estimated Hrs Per Day: 1.5 hours per day Patient and/or Family Agrees t: Yes Safety Risks/Education Patient Education: Transfer Techniques, Safety Issues Teaching Recipient: Patient Teaching Methods: Discussion Response to Teaching: Verbalize Understanding Time Time In: 800 Time Out: 930 Total Billed Treatment Time: 90 Total Billed Treatment 1, GT x2 (30m), EX x3 (40m) & FA (20m) MISTI CHÁVEZ FIRE WATCHER May 27, 2022 09:38
--- NOTE | 2022-05-27 11:16 | Occupational Ther Daily Note ---
OT Current Status-Daily Note Subjective Pt alert, in recliner. Pt agrees to therapy. Pt c/o no pain. Mental Status/Objective Patient Orientation: Person, Place, Time, Situation ADL-Treatment Pt ambulated to bathroom using FWW. Completed all toileting and hand hygiene task independently. Reviewed AE techniques and tips for convenience with ADL's and AE at home. Therapy Code Descriptions/Definitions Functional [place] Measure: 0=Not Assessed/NA 4=Minimal Assistance 1=Total Assistance 5=Supervision or Setup 2=Maximal Assistance 6=Modified [place] 3=Moderate Assistance 7=Complete IndependenceSCALE: Activities may be completed with or without assistive devices. 4-Nnavjkltca-srkemiu completes the activity by him/herself with no assistance from a helper. 5-Set-up or Clean-up Assistance-helper sets up or cleans up; patient completes activity. [place] assists only prior to or following the activity. 4-Supervision or Touching Assistance-helper provides verbal cues and/or touching/steadying and/or contact guard assistance as patient completes activity. Assistance may be provided throughout the activity or intermittently. 3-Partial/Moderate Assistance-helper does LESS THAN HALF the effort. [place] lifts, holds or supports trunk or limbs, but provides less than half the effort. 2-Substantial/Maximal Assistance-helper does MORE THAN HALF the effort. [place] lifts or holds trunk or limbs and provides more than half the effort. 1-Wjsflziha-xqemfg does ALL the effort. Patient does none of the effort to complete the activity. Or, the assistance of 2 or more helpers is required for the patient to complete the activity. If activity was not attempted, code reason: 7-Patient Refused. 9-Not Applicable-not attempted and the patient did not perform the activity before the current illness, exacerbation or injury. 10-Not Attempted due to Environmental Limitations-(lack of equipment, weather restraints, etc.). 88-Not Attempted due to Medical Conditions or Safety Concerns. Toileting Hygiene (QC): 6 Other Treatment Pt ambulated to gym using FWW. Pt completed 2 min of overhead molly exercises with BUE's to increase ROM. Pt pinched resistant clips with L/R UE's to increase strength for self care skills. Pt participated in lacing string through small holes to increase FM skills and pinch for self care skills. Pt completed both activities with 1 lb weight on BUE's to increase BUE strength. Pt ambulated back to room using FWW. Pt in recliner at end of session. Call light/phone in reach. All needs met in room. Education OT Patient Education: Modified ADL techniques, Use of adapted equipment Teaching Recipient: Patient Teaching Methods: Discussion Response to Teaching: Verbalize Understanding OT Short Term Goals Short Term Goals Time Frame: May 29, 2022 Eatin Oral hygiene: 5 Toileting hygiene: 5 Shower/bathe self: 5 Upper body dressin Lower body dressin Putting on/taking off footwear: 4 OT Assembler Show Motor Goals Assisted Goals Time Frame: Jun 05, 2022 Eating (QC): 6 Oral Hygiene (QC): 6 Toileting Hygiene (QC): 6 Shower/Bathe Self (QC): 6 Upper Body Dressing (QC): 6 Lower Body Dressing (QC): 6 On/Off Footwear (QC): 6 (With AE.) Additional Goals: 1-Demonstrate ADL Tasks, 2-Verbalize Understanding, 3- ImproveStrength/Keaton 1=Demonstrate adherence to instructed precautions during ADL tasks. 2=Patient will verbalize/demonstrate understanding of assistive devices/modifications for ADL. 3=Patient will improve strength/tolerance for activity to enable patient to perform ADL's. OT Education/Plan Problem List/Assessment Assessment: Decreased Activ Tolerance, Impaired Self-Care Skills Discharge Recommendations Plan/Recommendations: Continue POC Treatment Plan/Plan of Care Patient would benefit from OT for education, treatment and training to promote independence in ADL's, mobility, safety and/or upper extremity function for A DL's. Plan of Care: ADL Retraining, Functional Mobility, UE Funct Exercise/Act Treatment Duration: Jun 05, 2022 Frequency: At least 5 of 7 days/Wk (IRF) Estimated Hrs Per Day: 1.5 hours per day Agreement: Yes Rehab Potential: Good Time/GCodes Start Time: 10:30 Stop Time: 11:00 Total Time Billed (hr/min): 30 Billed Treatment Time 1 visit ADL 1 (10 min) EX 1 (20 min) KEN JOHN May 27, 2022 11:16
[2022-05-27] MEDS: LACTULOSE SYRUP 10GM/15ML (ENULOSE) 30ML UDC PO PRN (14:21)
[2022-05-27] MEDS: IRON SUCROSE 200 MG/10 ML (VENOFER) VIAL IV SCH (14:36)
[2022-05-27 19:45] VITALS: BP 159/77
[2022-05-27] MEDS: SIMVASTATIN 20 MG TABLET PO SCH (20:12)
[2022-05-27] MEDS: LATANOPROST 0.005% (XALATAN) OPHTH SOLN 2.5 ML OU SCH (20:12)
[2022-05-27] MEDS: CATHETER FLUSH 10 ML SYR IVP SCH (22:23)
--- NOTE | 2022-05-28 05:57 | PM&R Progress Note ---
Subjective HPI/CC On Admission Date Seen by Provider: May 28, 2022 Time Seen by Provider: 09:00 Subjective/Events-last exam 05/28/2022: Pt is doing really well Bowels moved yesterday Pain is controlled Iron infusions maintained 05/27/2022: Pt is doing pretty well Sodium level up to 132 Will give iron infusion after midline is placed 05/26/2022: Patient doing well Tylenol given for pain Supportive care will continue 05/25/2022: Patient doing well Pain is controlled Could not find an IV so we will hold iron infusion 05/24/2022: Doing very well Ambulating well Pain controlled Labs reviewed Fluid restriction maintained 05/23/2022: Patient doing well Sodium level is 128 Fluid restriction ordered No falls Pain controlled with Tylenol only Review of Systems General: Fatigue, Malaise Musculoskeletal: leg pain Objective Exam Vital Signs Vital Signs Date Time Temp Pulse Resp B/P (MAP) Pulse Ox O2 Delivery O2 Flow Rate FiO2 05/28/22 20:00 Room Air 05/28/22 19:47 36.9 70 16 131/66 (87) 99 Capillary Refill : General Appearance: No Apparent Distress, WD/WN, Chronically ill, Thin HEENT: PERRL/EOMI, Normal ENT Inspection, Pharynx Normal Neck: Full Range of Motion, Normal Inspection, Non Tender, Supple, Carotid Bruit Respiratory: Chest Non Tender, Lungs Clear, Normal Breath Sounds, No Accessory Muscle Use, No Respiratory Distress Cardiovascular: Regular Rate, Rhythm, No Edema, No Gallop, No JVD, No Murmur, Normal Peripheral Pulses Gastrointestinal: Normal Bowel Sounds, No Organomegaly, No Pulsatile Mass, Non Tender, Soft Back: Normal Inspection, No CVA Tenderness, No Vertebral Tenderness Extremity: Normal Capillary Refill, Normal Inspection, Normal Range of Motion (limited ROM legs), Non Tender, No Calf Tenderness, No Pedal Edema Neurologic/Psychiatric: Alert, Oriented x3, No Motor/Sensory Deficits, Normal Mood/Affect Skin: Normal Color, Warm/Dry Lymphatic: No Adenopathy Results/Procedures Lab Patient resulted labs reviewed. FIM Transfers Therapy Code Descriptions/Definitions Functional [place] Measure: 0=Not Assessed/NA 4=Minimal Assistance 1=Total Assistance 5=Supervision or Setup 2=Maximal Assistance 6=Modified [place] 3=Moderate Assistance 7=Complete IndependenceSCALE: Activities may be completed with or without assistive devices. 6-Kjvjktvazg-bbixpfl completes the activity by him/herself with no assistance from a helper. 5-Set-up or Clean-up Assistance-helper sets up or cleans up; patient completes activity. [place] assists only prior to or following the activity. 4-Supervision or Touching Assistance-helper provides verbal cues and/or touching/steadying and/or contact guard assistance as patient completes activity. Assistance may be provided throughout the activity or intermittently. 3-Partial/Moderate Assistance-helper does LESS THAN HALF the effort. [place] lifts, holds or supports trunk or limbs, but provides less than half the effort. 2-Substantial/Maximal Assistance-helper does MORE THAN HALF the effort. [place] lifts or holds trunk or limbs and provides more than half the effort. 6-Wjxsuwsvg-jblatz does ALL the effort. Patient does none of the effort to complete the activity. Or, the assistance of 2 or more helpers is required for the patient to complete the activity. If activity was not attempted, code reason: 7-Patient Refused. 9-Not Applicable-not attempted and the patient did not perform the activity before the current illness, exacerbation or injury. 10-Not Attempted due to Environmental Limitations-(lack of equipment, weather restraints, etc.). 88-Not Attempted due to Medical Conditions or Safety Concerns. Roll Left to Right (QC): 6 Sit to Lying (QC): 4 Sit to Stand (QC): 4 Chair/Lyz-ku-Afxtt Xfer(QC): 6 Car Transfer (QC): 4 Gait Training Does the Patient Walk?: Yes Distance: 250' x2 Walk 10 feet (QC): 5 Walk 50 ft with 2 Turns(QC): 5 Walk 150 ft (QC): 4 Walking 10ft/uneven surface-QC: 4 Gait Persons Needed: 1 Gait Assistive Device: FWW Wheelchair Training Does the Pt Use a Wheelchair?: No Wheel 50 ft with 2 turns (QC): 9 Wheel 150 ft (QC): 9 Stair Training #of Steps: 1 1 Step (curb) (QC): 4 4 Steps (QC): 88 12 Steps (QC): 88 Balance Picking up an Object (QC): 4 (CGA using a family support worker) ADL-Treatment Eating (QC): 6 Oral Hygiene (QC): 6 Shower/Bathe Self (QC): 5 Upper Body Dressing (QC): 5 Lower Body Dressing (QC): 5 On/Off Footwear (QC): 5 Toileting Hygiene (QC): 6 Toilet Transfer (QC): 6 Assessment/Plan Assessment and Plan Assess & Plan/Chief Complaint A/P: Right total hip arthroplasty - The patient is being admitted to our comprehensive inpatient rehabilitation facility and can tolerate the intensity of service consisting of at least: 180 minutes of therapy a day, 5 out of 7 days a week. Pain can be managed with increased ambulation and Tramadol HCL as needed. Continue monitoring for opioid-induced constipation As pain continues to decrease, Tylenol or NSAIDs can be implemented instead. Surgical and medical staff to monitor wound healing. Osteoarthritis hypertension hypercholesterolemia pre-glaucoma cataracts GERD Advanced age Anemia Iron def Hyponatremia Plan: PT OT Monitor closely Fall risk 05/23/2022: Iron infusions 05/24/2022: Iron infusions Supportive care 05/25/2022: Will iron infusion due to lack of IV access 05/26/2022: Midline tomorrow 05/27/2022: IV iron Continue aggressive therapy 05/28/2022: Supportive care Iron infusions (1) Primary osteoarthritis of right hip GAB HIGH DO May 28, 2022 05:57
[2022-05-28] MEDS: OMEPRAZOLE 20 MG (PriLOSEC) CAP NON-FORMULARY PO SCH ×2 (06:21→16:05)
[2022-05-28] MEDS: CATHETER FLUSH 10 ML SYR IVP SCH ×3 (06:22→20:08)
[2022-05-28] MEDS: CYANOCOBALAMIN 1,000 MCG (VITAMIN B-12) TABLET PO SCH (06:52)
[2022-05-28] MEDS: MULTIVIT W/MINERALS TAB (THERAGRAN M) PO SCH (06:52)
--- NOTE | 2022-05-28 07:15 | Occupational Ther Daily Note ---
OT Current Status-Daily Note Subjective Pt alert, sitting in recliner. Pt agrees to therapy. No c/o pain, only soreness at R hip. Pt stated it was only soreness and no pain medication needed. Mental Status/Objective Patient Orientation: Person, Place, Time, Situation Attachments: IV (midline) ADL-Treatment Pt independent with eating. Independent with toileting. Pt independent with ambulating to/from bathroom then standing at sink to complete oral care and hand washing. Pt able to retrieve and put away clothing in closet using FWW independently. Pt completed upper body dressing independently. Pt completed lower body dressing using AE independently. Pt stood at sink to complete oral care independently. After session, pt left in care of PT. All needs met. Therapy Code Descriptions/Definitions Functional [place] Measure: 0=Not Assessed/NA 4=Minimal Assistance 1=Total Assistance 5=Supervision or Setup 2=Maximal Assistance 6=Modified [place] 3=Moderate Assistance 7=Complete IndependenceSCALE: Activities may be completed with or without assistive devices. 7-Clqbkgnbxb-duvhgtj completes the activity by him/herself with no assistance from a helper. 5-Set-up or Clean-up Assistance-helper sets up or cleans up; patient completes activity. [place] assists only prior to or following the activity. 4-Supervision or Touching Assistance-helper provides verbal cues and/or touching/steadying and/or contact guard assistance as patient completes activity. Assistance may be provided throughout the activity or intermittently. 3-Partial/Moderate Assistance-helper does LESS THAN HALF the effort. [place] lifts, holds or supports trunk or limbs, but provides less than half the effort. 2-Substantial/Maximal Assistance-helper does MORE THAN HALF the effort. [place] lifts or holds trunk or limbs and provides more than half the effort. 4-Bcuquhbsu-osvuke does ALL the effort. Patient does none of the effort to complete the activity. Or, the assistance of 2 or more helpers is required for the patient to complete the activity. If activity was not attempted, code reason: 7-Patient Refused. 9-Not Applicable-not attempted and the patient did not perform the activity before the current illness, exacerbation or injury. 10-Not Attempted due to Environmental Limitations-(lack of equipment, weather restraints, etc.). 88-Not Attempted due to Medical Conditions or Safety Concerns. Eating (QC): 6 Oral Hygiene (QC): 6 Upper Body Dressing (QC): 6 Lower Body Dressing (QC): 6 On/Off Footwear: 6 Toileting Hygiene (QC): 6 Toilet Transfer (QC): 6 OT Short Term Goals Short Term Goals Time Frame: May 29, 2022 Eatin Oral hygiene: 5 Toileting hygiene: 5 Shower/bathe self: 5 Upper body dressin Lower body dressin Putting on/taking off footwear: 4 OT Intermediate Goals Senior Linux Systems Administrator Goals Time Frame: Jun 05, 2022 Acute change in mental status: 0 Inattention: 0 Disorganized thinkin Altered level of consciousness: 0 Eating (QC): 6 (met) Oral Hygiene (QC): 6 (met) Toileting Hygiene (QC): 6 (met) Shower/Bathe Self (QC): 6 Upper Body Dressing (QC): 6 (met) Lower Body Dressing (QC): 6 (met) On/Off Footwear (QC): 6 (With AE. Met) Additional Goals: 1-Demonstrate ADL Tasks, 2-Verbalize Understanding, 3- ImproveStrength/[place] 1=Demonstrate adherence to instructed precautions during ADL tasks. 2=Patient will verbalize/demonstrate understanding of assistive devices/modifications for ADL. 3=Patient will improve strength/tolerance for activity to enable patient to perform ADL's. OT Education/Plan Problem List/Assessment Assessment: Impaired Self-Care Skills Discharge Recommendations Plan/Recommendations: Continue POC Treatment Plan/Plan of Care Patient would benefit from OT for education, treatment and training to promote independence in ADL's, mobility, safety and/or upper extremity function for ADL's. Plan of Care: ADL Retraining, Functional Mobility, UE Funct Exercise/Act Treatment Duration: Jun 05, 2022 Frequency: At least 5 of 7 days/Wk (IRF) Estimated Hrs Per Day: 1.5 hours per day Agreement: Yes Rehab Potential: Good Time/GCodes Start Time: 07:00 Stop Time: 08:00 Total Time Billed (hr/min): 60 Billed Treatment Time 1 visit-ADL 4 (60 min) KEN JOHN May 28, 2022 07:15
[2022-05-28 07:19] VITALS: BP 161/72
[2022-05-28] MEDS: ASPIRIN E.C. 81 MG (ECOTRIN) TAB PO SCH ×2 (08:02→17:00)
[2022-05-28] MEDS: CELECOXIB 100 MG (CeleBREX) CAP PO SCH ×2 (08:03→20:08)
[2022-05-28] MEDS: DORZOLAMIDE/TIMOLOL (COSOPT) 2-0.68% 10 ML BTL OP SCH ×2 (08:04→20:07)
[2022-05-28] MEDS: amLODIPine 5 MG (NORVASC) TAB PO SCH (08:05)
[2022-05-28] MEDS: polyethylene glycoL POWDER 17 GM (MIRALAX) PACK PO SCH ×2 (08:06→20:05)
[2022-05-28] MEDS: DOCUSATE SODIUM 100 MG (COLACE) CAP PO SCH ×2 (08:06→20:04)
[2022-05-28] MEDS: SENNA W/DOCUSATE (SENOKOT S) TABLET PO SCH ×2 (08:06→20:05)
--- NOTE | 2022-05-28 09:36 | Physical Therapy Daily Note ---
PT Daily Note-Current Subjective Pt sitting up in recliner upon arrival. Pt agrees to PT. Pain Section J - Health Conditions 1. Rarely or not at all 2. Occasionally 3. Frequently 4. Almost constantly 8. Unable to answer Pain Effect on Sleep: 1 Pain Interference with Therapy: 1 Pain Interference w/Day-to-Day: 1 Mental Status Patient Orientation: Person, Place, Time, Situation Transfers SCALE: Activities may be completed with or without assistive devices. 3-Yqfdlorzou-ytquxka completes the activity by him/herself with no assistance from a helper. 5-Set-up or Clean-up Assistance-helper sets up or cleans up; patient completes activity. [place] assists only prior to or following the activity. 4-Supervision or Touching Assistance-helper provides verbal cues and/or touching/steadying and/or contact guard assistance as patient completes activity. Assistance may be provided throughout the activity or intermittently. 3-Partial/Moderate Assistance-helper does LESS THAN HALF the effort. [place] lifts, holds or supports trunk or limbs, but provides less than half the effort. 2-Substantial/Maximal Assistance-helper does MORE THAN HALF the effort. [place] lifts or holds trunk or limbs and provides more than half the effort. 9-Qvnypyqgn-tiqari does ALL the effort. Patient does none of the effort to complete the activity. Or, the assistance of 2 or more helpers is required for the patient to complete the activity. If activity was not attempted, code reason: 7-Patient Refused. 9-Not Applicable-not attempted and the patient did not perform the activity before the current illness, exacerbation or injury. 10-Not Attempted due to Environmental Limitations-(lack of equipment, weather restraints, etc.). 88-Not Attempted due to Medical Conditions or Safety Concerns. Sit to Stand (QC): 6 Toilet Transfer (QC): 6 Weight Bearing Right Lower Extremity: Right Weight Bearing/Tolerated Gait Training Does the Patient Walk?: Yes Distance: 250' x2 Walk 10 feet (QC): 6 Walk 50 ft with 2 Turns(QC): 6 Walk 150 ft (QC): 5 Gait Assistive Device: FWW Reminder for walking closer to FWW as pt states has 4WW at home. BENZENE WASHER OPERATOR states importance for safety bishop. if using 4WW. Wheelchair Training Does the Pt Use a Wheelchair?: No Stair Training Stair Training: Handrails/: 2 handrails #of Steps: 8 1 Step (curb) (QC): 6 4 Steps (QC): 5 Stairs: Pattern: Reciprocal Treatments TF to standing and amb. in hallway. Pt uses NuStep then short RB. After RB, pt amb. in hallway and completes 4 steps in Therapy Commons. Pt amb. back to Therapy Gym to complete 4 steps again. Pt returns to room and uses BR. Pt is issued and reviews written HEP for Supine & Seated Ex. All needs met, call light in hand. Assessment Current Status: Good Progress Pt arianna. tx well. PT Short Term Goals Short Term Goals Time Frame: May 29, 2022 Roll Left & Right: 6 Sit to lyin (CGA) Lying to sitting on side of be: 4 (CGA) Sit to stand: 4 (SBA) Chair/hbi-uc-oglmj transfer: 4 (SBA) Walk 10 feet: 4 (SBA) Walk 50 feet with two turns: 4 (SBA) Walk 150 feet: 4 (SBA) PT Half-Way Goals Half-Way Goals PT Half-Way Goals Time Frame: Jun 12, 2022 Roll Left & Right (QC): 6 Sit to Lying (QC): 6 Lying-Sitting on Side/Bed(QC): 6 Sit to Stand (QC): 6 Chair/Rwe-re-Hufbj Xfer(QC): 6 Toilet Transfer (QC): 6 Car Transfer (QC): 6 Does the Patient Walk: Yes Walk 10 feet (QC): 6 Walk 50ft with 2 Turns (QC): 6 Walk 150 ft (QC): 6 Walking 10ft on Uneven Surface: 6 1 Step (curb) (QC): 4 (BA) 4 Steps (QC): 4 (SBA) 12 Steps (QC): 88 Picking up an Object (QC): 4 (SBA using subsorter) Wheel 50 feet with 2 turns (QC: 9 Wheel 150 feet: 9 PT Plan Treatment/Plan Treatment Plan: Continue Plan of Care Treatment Plan: Bed Mobility, Education, Functional Activity [place], Functional Strength, Group Therapy, Gait, Safety, Therapeutic Exercise, Transfers Treatment Duration: Jun 12, 2022 Frequency: At least 5 of 7 days/Wk (IRF) Estimated Hrs Per Day: 1.5 hours per day Patient and/or Family Agrees t: Yes Safety Risks/Education Patient Education: Steps, Issued Written HEP Teaching Recipient: Patient Teaching Methods: Discussion Response to Teaching: Verbalize Understanding Time Time In: 800 Time Out: 930 Total Billed Treatment Time: 90 Total Billed Treatment 1, GT x2 (25m), EX x2 (30m) & FA x2 (35m) MISTI CHÁVEZ BENZENE WASHER OPERATOR May 28, 2022 09:36
--- NOTE | 2022-05-28 11:27 | Occupational Ther Daily Note ---
OT Current Status-Daily Note Mental Status/Objective Patient Orientation: Person, Place, Time, Situation ADL-Treatment Pt transferred from sit to stand using FWW. Pt ambulated to kitchen in commons area. Pt educated and participated in standing at sink, placing items at high and low levels while following hip precautions and using counter tops for support. Pt ambulated back to restroom in room with FWW. Completed all toileting hygiene and transfers independently. Pt in recliner at end of session. Phone/call light in reach. All needs met in room. Therapy Code Descriptions/Definitions Functional [place] Measure: 0=Not Assessed/NA 4=Minimal Assistance 1=Total Assistance 5=Supervision or Setup 2=Maximal Assistance 6=Modified [place] 3=Moderate Assistance 7=Complete IndependenceSCALE: Activities may be completed with or without assistive devices. 8-Idvthdyxeu-tsezlze completes the activity by him/herself with no assistance from a helper. 5-Set-up or Clean-up Assistance-helper sets up or cleans up; patient completes activity. [place] assists only prior to or following the activity. 4-Supervision or Touching Assistance-helper provides verbal cues and/or touching/steadying and/or contact guard assistance as patient completes activity. Assistance may be provided throughout the activity or intermittently. 3-Partial/Moderate Assistance-helper does LESS THAN HALF the effort. [place] lifts, holds or supports trunk or limbs, but provides less than half the effort. 2-Substantial/Maximal Assistance-helper does MORE THAN HALF the effort. [place] lifts or holds trunk or limbs and provides more than half the effort. 3-Wvmtfivqa-sxarqf does ALL the effort. Patient does none of the effort to complete the activity. Or, the assistance of 2 or more helpers is required for the patient to complete the activity. If activity was not attempted, code reason: 7-Patient Refused. 9-Not Applicable-not attempted and the patient did not perform the activity before the current illness, exacerbation or injury. 10-Not Attempted due to Environmental Limitations-(lack of equipment, weather restraints, etc.). 88-Not Attempted due to Medical Conditions or Safety Concerns. Other Treatment Pt completed 10 reps of 5 different UE exercises with light resistance band to increase strength and endurance for mobility and ADL participation. Skilled instruction for correct technique and modifications given. Pt able to demonstrate understanding of theraband HEP. Education OT Patient Education: Home exercise program Teaching Recipient: Patient Teaching Methods: Demonstration, Handout, Discussion Response to Teaching: Verbalize Understanding, Return Demonstration OT Short Term Goals Short Term Goals Time Frame: May 29, 2022 Eatin Oral hygiene: 5 Toileting hygiene: 5 Shower/bathe self: 5 Upper body dressin Lower body dressin Putting on/taking off footwear: 4 OT Folded Cloth Taper Goals Folded Cloth Taper Goals Time Frame: Jun 05, 2022 Acute change in mental status: 0 Inattention: 0 Disorganized thinkin Altered level of consciousness: 0 Eating (QC): 6 (met) Oral Hygiene (QC): 6 (met) Toileting Hygiene (QC): 6 (met) Shower/Bathe Self (QC): 6 Upper Body Dressing (QC): 6 (met) Lower Body Dressing (QC): 6 (met) On/Off Footwear (QC): 6 (With AE. Met) Additional Goals: 1-Demonstrate ADL Tasks, 2-Verbalize Understanding, 3- ImproveStrength/[place] 1=Demonstrate adherence to instructed precautions during ADL tasks. 2=Patient will verbalize/demonstrate understanding of assistive devices/modifications for ADL. 3=Patient will improve strength/tolerance for activity to enable patient to perform ADL's. OT Education/Plan Problem List/Assessment Assessment: Decreased Activ Tolerance Discharge Recommendations Plan/Recommendations: Continue POC Treatment Plan/Plan of Care Patient would benefit from OT for education, treatment and training to promote independence in ADL's, mobility, safety and/or upper extremity function for ADL's. Plan of Care: ADL Retraining, Functional Mobility, UE Funct Exercise/Act Treatment Duration: Jun 05, 2022 Frequency: At least 5 of 7 days/Wk (IRF) Estimated Hrs Per Day: 1.5 hours per day Agreement: Yes Rehab Potential: Good Time/GCodes Start Time: 10:53 Stop Time: 11:23 Total Time Billed (hr/min): 30 Billed Treatment Time 1 visit ADL 1 (20 min) EX 1 (10 min) KEN JOHN May 28, 2022 11:27
[2022-05-28 19:47] VITALS: BP 131/66
[2022-05-28] MEDS: ACETAMINOPHEN 325 MG TABLET PO PRN (19:55)
[2022-05-28] MEDS: LATANOPROST 0.005% (XALATAN) OPHTH SOLN 2.5 ML OU SCH (20:07)
[2022-05-28] MEDS: SIMVASTATIN 20 MG TABLET PO SCH (20:08)
--- NOTE | 2022-05-29 06:27 | PM&R Progress Note ---
Subjective HPI/CC On Admission Date Seen by Provider: May 29, 2022 Time Seen by Provider: 09:00 Subjective/Events-last exam 05/29/2022: Pt is doing really well Set for discharge tomorrow Receiving her 4th IV iron infusion Incision looks good 05/28/2022: Pt is doing really well Bowels moved yesterday Pain is controlled Iron infusions maintained 05/27/2022: Pt is doing pretty well Sodium level up to 132 Will give iron infusion after midline is placed 05/26/2022: Patient doing well Tylenol given for pain Supportive care will continue 05/25/2022: Patient doing well Pain is controlled Could not find an IV so we will hold iron infusion 05/24/2022: Doing very well Ambulating well Pain controlled Labs reviewed Fluid restriction maintained 05/23/2022: Patient doing well Sodium level is 128 Fluid restriction ordered No falls Pain controlled with Tylenol only Review of Systems General: Fatigue, Malaise Objective Exam Vital Signs Vital Signs Date Time Temp Pulse Resp B/P (MAP) Pulse Ox O2 Delivery O2 Flow Rate FiO2 05/29/22 20:15 37.0 69 16 158/69 (98) 98 Room Air Capillary Refill : General Appearance: No Apparent Distress, WD/WN, Chronically ill, Thin HEENT: PERRL/EOMI, Normal ENT Inspection, Pharynx Normal Neck: Full Range of Motion, Normal Inspection, Non Tender, Supple, Carotid Bruit Respiratory: Chest Non Tender, Lungs Clear, Normal Breath Sounds, No Accessory Muscle Use, No Respiratory Distress Cardiovascular: Regular Rate, Rhythm, No Edema, No Gallop, No JVD, No Murmur, Normal Peripheral Pulses Gastrointestinal: Normal Bowel Sounds, No Organomegaly, No Pulsatile Mass, Non Tender, Soft Back: Normal Inspection, No CVA Tenderness, No Vertebral Tenderness Extremity: Normal Capillary Refill, Normal Inspection, Normal Range of Motion (limited ROM legs), Non Tender, No Calf Tenderness, No Pedal Edema Neurologic/Psychiatric: Alert, Oriented x3, No Motor/Sensory Deficits, Normal Mood/Affect Skin: Normal Color, Warm/Dry Lymphatic: No Adenopathy Results/Procedures Lab Patient resulted labs reviewed. FIM Transfers Therapy Code Descriptions/Definitions Functional [place] Measure: 0=Not Assessed/NA 4=Minimal Assistance 1=Total Assistance 5=Supervision or Setup 2=Maximal Assistance 6=Modified [place] 3=Moderate Assistance 7=Complete IndependenceSCALE: Activities may be completed with or without assistive devices. 9-Uvzzlaqftd-snloawq completes the activity by him/herself with no assistance from a helper. 5-Set-up or Clean-up Assistance-helper sets up or cleans up; patient completes activity. [place] assists only prior to or following the activity. 4-Supervision or Touching Assistance-helper provides verbal cues and/or touching/steadying and/or contact guard assistance as patient completes activity. Assistance may be provided throughout the activity or intermittently. 3-Partial/Moderate Assistance-helper does LESS THAN HALF the effort. [place] lifts, holds or supports trunk or limbs, but provides less than half the effort. 2-Substantial/Maximal Assistance-helper does MORE THAN HALF the effort. [place] lifts or holds trunk or limbs and provides more than half the effort. 7-Aepupkdrk-prqyxd does ALL the effort. Patient does none of the effort to complete the activity. Or, the assistance of 2 or more helpers is required for the patient to complete the activity. If activity was not attempted, code reason: 7-Patient Refused. 9-Not Applicable-not attempted and the patient did not perform the activity before the current illness, exacerbation or injury. 10-Not Attempted due to Environmental Limitations-(lack of equipment, weather restraints, etc.). 88-Not Attempted due to Medical Conditions or Safety Concerns. Roll Left to Right (QC): 6 Sit to Lying (QC): 4 Sit to Stand (QC): 6 Chair/Tym-hs-Amkwe Xfer(QC): 6 Car Transfer (QC): 4 Gait Training Does the Patient Walk?: Yes Distance: 250' x2 Walk 10 feet (QC): 6 Walk 50 ft with 2 Turns(QC): 6 Walk 150 ft (QC): 5 Walking 10ft/uneven surface-QC: 4 Gait Persons Needed: 1 Gait Assistive Device: FWW Wheelchair Training Does the Pt Use a Wheelchair?: No Wheel 50 ft with 2 turns (QC): 9 Wheel 150 ft (QC): 9 Stair Training Stair Training: Handrails/: 2 handrails #of Steps: 8 1 Step (curb) (QC): 6 4 Steps (QC): 5 12 Steps (QC): 88 Stairs: Pattern: Reciprocal Balance Picking up an Object (QC): 4 (CGA using a crate liner) ADL-Treatment Eating (QC): 6 Oral Hygiene (QC): 6 Shower/Bathe Self (QC): 5 Upper Body Dressing (QC): 6 Lower Body Dressing (QC): 6 On/Off Footwear (QC): 6 Toileting Hygiene (QC): 6 Toilet Transfer (QC): 6 Assessment/Plan Assessment and Plan Assess & Plan/Chief Complaint A/P: Right total hip arthroplasty - The patient is being admitted to our comprehensive inpatient rehabilitation facility and can tolerate the intensity o f service consisting of at least: 180 minutes of therapy a day, 5 out of 7 days a week. Pain can be managed with increased ambulation and Tramadol HCL as needed. Continue monitoring for opioid-induced constipation As pain continues to decrease, Tylenol or NSAIDs can be implemented instead. Surgical and medical staff to monitor wound healing. Osteoarthritis hypertension hypercholesterolemia pre-glaucoma cataracts GERD Advanced age Anemia Iron def Hyponatremia Plan: PT OT Monitor closely Fall risk 05/23/2022: Iron infusions 05/24/2022: Iron infusions Supportive care 05/25/2022: Will iron infusion due to lack of IV access 05/26/2022: Midline tomorrow 05/27/2022: IV iron Continue aggressive therapy 05/28/2022: Supportive care Iron infusions 05/29/2022: DC tomorrow (1) Primary osteoarthritis of right hip GAB HIGH DO May 29, 2022 06:27
[2022-05-29] MEDS: OMEPRAZOLE 20 MG (PriLOSEC) CAP NON-FORMULARY PO SCH ×2 (06:33→16:30)
[2022-05-29] MEDS: CATHETER FLUSH 10 ML SYR IVP SCH ×3 (06:33→20:50)
[2022-05-29] MEDS: MULTIVIT W/MINERALS TAB (THERAGRAN M) PO SCH (06:33)
[2022-05-29] MEDS: CYANOCOBALAMIN 1,000 MCG (VITAMIN B-12) TABLET PO SCH (06:33)
--- NOTE | 2022-05-29 07:22 | Occupational Ther Daily Note ---
OT Current Status-Daily Note Subjective Pt sleeping in bed, woke easily to name. Pt agrees to therapy. No c/o pain. Mental Status/Objective Patient Orientation: Person, Place, Time, Situation Attachments: IV ADL-Treatment Pt independent with bed mobility. Pt independent with eating. Independent with toileting/toilet transfer. Using FWW, pt able to retrieve clothing from closet independently and transport to bathroom for bathing/dressing. Sitting on shower bench, pt bathes using grabbars, hand held shower and LH sponge, independently. Independent upper body dressing. Independent lower body dressing and footwear using AE to adhere to hip precautions. Standing at sink, pt is independent with oral care and grooming. After session, pt left in care of PT. All needs met in room. Therapy Code Descriptions/Definitions Functional [place] Measure: 0=Not Assessed/NA 4=Minimal Assistance 1=Total Assistance 5=Supervision or Setup 2=Maximal Assistance 6=Modified [place] 3=Moderate Assistance 7=Complete IndependenceSCALE: Activities may be completed with or without assistive devices. 1-Zhikezwzfp-czkhnhk completes the activity by him/herself with no assistance from a helper. 5-Set-up or Clean-up Assistance-helper sets up or cleans up; patient completes activity. [place] assists only prior to or following the activity. 4-Supervision or Touching Assistance-helper provides verbal cues and/or touching/steadying and/or contact guard assistance as patient completes activity. Assistance may be provided throughout the activity or intermittently. 3-Partial/Moderate Assistance-helper does LESS THAN HALF the effort. [place] lifts, holds or supports trunk or limbs, but provides less than half the effort. 2-Substantial/Maximal Assistance-helper does MORE THAN HALF the effort. [place] lifts or holds trunk or limbs and provides more than half the effort. 7-Atzgszhgd-crxivm does ALL the effort. Patient does none of the effort to compl ete the activity. Or, the assistance of 2 or more helpers is required for the patient to complete the activity. If activity was not attempted, code reason: 7-Patient Refused. 9-Not Applicable-not attempted and the patient did not perform the activity before the current illness, exacerbation or injury. 10-Not Attempted due to Environmental Limitations-(lack of equipment, weather restraints, etc.). 88-Not Attempted due to Medical Conditions or Safety Concerns. Eating (QC): 6 Oral Hygiene (QC): 6 Shower/Bathe Self (QC): 6 Upper Body Dressing (QC): 6 Lower Body Dressing (QC): 6 On/Off Footwear: 6 Toileting Hygiene (QC): 6 Toilet Transfer (QC): 6 OT Short Term Goals Short Term Goals Time Frame: May 29, 2022 Eatin Oral hygiene: 5 Toileting hygiene: 5 Shower/bathe self: 5 Upper body dressin Lower body dressin Putting on/taking off footwear: 4 OT Organ Pipe Maker Metal Goals Organ Pipe Maker Metal Goals Time Frame: Jun 05, 2022 Acute change in mental status: 0 Inattention: 0 Disorganized thinkin Altered level of consciousness: 0 Eating (QC): 6 (met) Oral Hygiene (QC): 6 (met) Toileting Hygiene (QC): 6 (met) Shower/Bathe Self (QC): 6 (met) Upper Body Dressing (QC): 6 (met) Lower Body Dressing (QC): 6 (met) On/Off Footwear (QC): 6 (With AE. Met) Additional Goals: 1-Demonstrate ADL Tasks, 2-Verbalize Understanding, 3- ImproveStrength/[place] 1=Demonstrate adherence to instructed precautions during ADL tasks. 2=Patient will verbalize/demonstrate understanding of assistive devices/modifi cations for ADL. 3=Patient will improve strength/tolerance for activity to enable patient to perform ADL's. OT Education/Plan Problem List/Assessment Assessment: Impaired Self-Care Skills Discharge Recommendations Plan/Recommendations: Continue POC Treatment Plan/Plan of Care Patient would benefit from OT for education, treatment and training to promote independence in ADL's, mobility, safety and/or upper extremity function for ADL's. Plan of Care: ADL Retraining, Functional Mobility, UE Funct Exercise/Act Treatment Duration: Jun 05, 2022 Frequency: At least 5 of 7 days/Wk (IRF) Estimated Hrs Per Day: 1.5 hours per day Agreement: Yes Rehab Potential: Good Time Start Time: 07:00 Stop Time: 08:00 Total Time Billed (hr/min): 60 Billed Treatment Time 1 visit-ADL 4 (60 min) KEN JOHN May 29, 2022 07:22
[2022-05-29 07:33] VITALS: BP 155/64
[2022-05-29] MEDS: CELECOXIB 100 MG (CeleBREX) CAP PO SCH ×2 (08:56→20:50)
[2022-05-29] MEDS: ASPIRIN E.C. 81 MG (ECOTRIN) TAB PO SCH ×2 (08:56→16:28)
[2022-05-29] MEDS: IRON SUCROSE 200 MG/10 ML (VENOFER) VIAL IV SCH (08:56)
[2022-05-29] MEDS: DOCUSATE SODIUM 100 MG (COLACE) CAP PO SCH ×3 (09:13→21:03)
[2022-05-29] MEDS: SENNA W/DOCUSATE (SENOKOT S) TABLET PO SCH ×3 (09:13→21:03)
[2022-05-29] MEDS: polyethylene glycoL POWDER 17 GM (MIRALAX) PACK PO SCH ×3 (09:13→21:03)
[2022-05-29] MEDS: DORZOLAMIDE/TIMOLOL (COSOPT) 2-0.68% 10 ML BTL OP SCH ×2 (09:14→20:50)
[2022-05-29] MEDS: amLODIPine 5 MG (NORVASC) TAB PO SCH (09:15)
--- NOTE | 2022-05-29 09:25 | Physical Therapy Daily Note ---
PT Daily Note-Current Subjective Pt sitting up in recliner upon arrival. Pt agrees to QC scoring for anticipated d/c tomorrow. Pain Location: No Pain Reported Section J - Health Conditions 1. Rarely or not at all 2. Occasionally 3. Frequently 4. Almost constantly 8. Unable to answer Pain Effect on Sleep: 1 Pain Interference with Therapy: 1 Pain Interference w/Day-to-Day: 1 Mental Status Patient Orientation: Person, Place, Time, Situation Transfers SCALE: Activities may be completed with or without assistive devices. 0-Ggtbbfweul-lcrsybt completes the activity by him/herself with no assistance from a helper. 5-Set-up or Clean-up Assistance-helper sets up or cleans up; patient completes activity. [place] assists only prior to or following the activity. 4-Supervision or Touching Assistance-helper provides verbal cues and/or touching/steadying and/or contact guard assistance as patient completes activity. Assistance may be provided throughout the activity or intermittently. 3-Partial/Moderate Assistance-helper does LESS THAN HALF the effort. [place] lifts, holds or supports trunk or limbs, but provides less than half the effort. 2-Substantial/Maximal Assistance-helper does MORE THAN HALF the effort. [place] lifts or holds trunk or limbs and provides more than half the effort. 9-Hbaidxelt-gwxdbj does ALL the effort. Patient does none of the effort to complete the activity. Or, the assistance of 2 or more helpers is required for the patient to complete the activity. If activity was not attempted, code reason: 7-Patient Refused. 9-Not Applicable-not attempted and the patient did not perform the activity before the current illness, exacerbation or injury. 10-Not Attempted due to Environmental Limitations-(lack of equipment, weather restraints, etc.). 88-Not Attempted due to Medical Conditions or Safety Concerns. Roll Left & Right (QC): 6 Sit to Lying (QC): 6 Lying to Sitting/Side of Bed(Q: 6 Sit to Stand (QC): 6 Chair/Lqh-jx-Gdtqi Xfer(QC): 6 Toilet Transfer (QC): 6 Car Transfer (QC): 6 Weight Bearing Right Lower Extremity: Right Weight Bearing/Tolerated Gait Training Does the Patient Walk?: Yes Distance: 225' x2 Walk 10 feet (QC): 6 Walk 50 ft with 2 Turns(QC): 6 Walk 150 ft (QC): 6 Walking 10ft/uneven surface-QC: 6 Gait Persons Needed: 0 Gait Assistive Device: FWW Wheelchair Training Does the Pt Use a Wheelchair?: No Stair Training Stair Training: Handrails/: 2 handrails #of Steps: 12 1 Step (curb) (QC): 6 4 Steps (QC): 6 12 Steps (QC): 6 Stairs: Pattern: Reciprocal Using both the set in the Therapy Commons and those in Therapy Gym per pt request. Balance Picking up an Object (QC): 6 Exercises NuStep Minutes: 15 NuStep Workload: 4 Treatments Pt completes QC scoring items listed above. Pt also uses NuStep, takes extended walk and 2 different sets of stairs. Pt returns to room at end of tx with all needs met, call light in hand. Assessment Current Status: Good Progress Pt arianna. tx well and has gained strength, activity tolerance and can complete tasks easier, with less pain than when pt arrived on ARU. PT Short Term Goals Short Term Goals Time Frame: May 29, 2022 Roll Left & Right: 6 Sit to lyin (CGA) Lying to sitting on side of be: 4 (CGA) Sit to stand: 4 (SBA) Chair/bfa-nf-lbxji transfer: 4 (SBA) Walk 10 feet: 4 (SBA) Walk 50 feet with two turns: 4 (SBA) Walk 150 feet: 4 (SBA) PT Correction Goals Correction Goals PT Correction Goals Time Frame: Jun 12, 2022 Roll Left & Right (QC): 6 Sit to Lying (QC): 6 Lying-Sitting on Side/Bed(QC): 6 Sit to Stand (QC): 6 Chair/Qrk-vq-Eupvo Xfer(QC): 6 Toilet Transfer (QC): 6 Car Transfer (QC): 6 Does the Patient Walk: Yes Walk 10 feet (QC): 6 Walk 50ft with 2 Turns (QC): 6 Walk 150 ft (QC): 6 Walking 10ft on Uneven Surface: 6 1 Step (curb) (QC): 4 (BA) 4 Steps (QC): 4 (SBA) 12 Steps (QC): 88 Picking up an Object (QC): 4 (SBA using customer experience manager) Wheel 50 feet with 2 turns (QC: 9 Wheel 150 feet: 9 PT Plan Treatment/Plan Treatment Plan: Continue Plan of Care Treatment Plan: Bed Mobility, Education, Functional Activity [place], Functional Strength, Group Therapy, Gait, Safety, Therapeutic Exercise, Transfers Treatment Duration: Jun 12, 2022 Frequency: At least 5 of 7 days/Wk (IRF) Estimated Hrs Per Day: 1.5 hours per day Patient and/or Family Agrees t: Yes Time Time In: 800 Time Out: 930 Total Billed Treatment Time: 90 Total Billed Treatment 1, GT x2 (30m), FA x3 (40m) & EX (20m) MISTI CHÁVEZ KELP GATHERER May 29, 2022 09:25
--- NOTE | 2022-05-29 10:30 | Occupational Ther Daily Note ---
OT Current Status-Daily Note Subjective Pt alert, sitting in recliner. Pt agrees to therapy. No c/o pain. Pt to discharge to home tomorrow. Mental Status/Objective Patient Orientation: Person, Place, Time, Mumbles Attachments: Other-See Comments (midline) ADL-Treatment Pt ambulated to bathroom using FWW. Pt completed all toileting hygiene and transfers independently. Pt ambulated to sink and stood at sink to complete hand hygiene with FWW, independently. Pt in recliner at end of session. Phone/call light in reach. All needs met in room. Therapy Code Descriptions/Definitions Functional [place] Measure: 0=Not Assessed/NA 4=Minimal Assistance 1=Total Assistance 5=Supervision or Setup 2=Maximal Assistance 6=Modified [place] 3=Moderate Assistance 7=Complete IndependenceSCALE: Activities may be completed with or without assistive devices. 7-Klngdjcqka-qwtijov completes the activity by him/herself with no assistance from a helper. 5-Set-up or Clean-up Assistance-helper sets up or cleans up; patient completes activity. Colton assists only prior to or following the activity. 4-Supervision or Touching Assistance-helper provides verbal cues and/or touching/steadying and/or contact guard assistance as patient completes activity. Assistance may be provided throughout the activity or intermittently. 3-Partial/Moderate Assistance-helper does LESS THAN HALF the effort. Colton lifts, holds or supports trunk or limbs, but provides less than half the effort. 2-Substantial/Maximal Assistance-helper does MORE THAN HALF the effort. Colton lifts or holds trunk or limbs and provides more than half the effort. 6-Dhqebqtvf-ofjocm does ALL the effort. Patient does none of the effort to complete the activity. Or, the assistance of 2 or more helpers is required for the patient to complete the activity. If activity was not attempted, code reason: 7-Patient Refused. 9-Not Applicable-not attempted and the patient did not perform the activity before the current illness, exacerbation or injury. 10-Not Attempted due to Environmental Limitations-(lack of equipment, weather restraints, etc.). 88-Not Attempted due to Medical Conditions or Safety Concerns. Toileting Hygiene (QC): 6 (Pt independent with hygiene and clothing manipulation.) Toilet Transfer (QC): 6 (Using FWW) Other Treatment Pt completes B UE exercises to strength fine and gross motor for daily functional skills. Pt performed 10 reps of 5 different UE's exercises with 2 lb weights. Pt participated in using pincer grasp to grasp small items and twist items together. Pt manipulated theraputty. Skilled instruction given for correct technique and modifications if needed. BIMS CAM BIMS Expression of Ideas and Wants: Without Difficulty Understanding Verbal Content: Understands Brief Interview/Mental Status: Yes IRF JOSEE BIMS: IRF JOSEE BIMS Response (Comments) Value Repitition of Three Words Three 3 Recalls Socks Yes, No Cue Required 2 Recalls Blue Yes, No Cue Required 2 Recalls Bed Yes, After Cueing 1 Year Correct 3 Month Accurate Within 5 Days 2 Day Correct 1 Total 14 Patient Normally Able to Recal: Current Session, Location of own room, That he/she in a hsp Should Staff Asses. Mental St.: No CAM Mental Status Change/Baseline: 0 Inattention: 0 Disorganized thinkin Altered level of consciousness: 0 OT Short Term Goals Short Term Goals Time Frame: May 29, 2022 Eatin Oral hygiene: 5 Toileting hygiene: 5 Shower/bathe self: 5 Upper body dressin Lower body dressin Putting on/taking off footwear: 4 OT Keyboard Instrument Repairer Goals Keyboard Instrument Repairer Goals Time Frame: Jun 05, 2022 Acute change in mental status: 0 Inattention: 0 Disorganized thinkin Altered level of consciousness: 0 Eating (QC): 6 (met) Oral Hygiene (QC): 6 (met) Toileting Hygiene (QC): 6 (met) Shower/Bathe Self (QC): 6 (met) Upper Body Dressing (QC): 6 (met) Lower Body Dressing (QC): 6 (met) On/Off Footwear (QC): 6 (With AE. Met) Additional Goals: 1-Demonstrate ADL Tasks, 2-Verbalize Understanding, 3- ImproveStrength/Keaton 1=Demonstrate adherence to instructed precautions during ADL tasks. 2=Patient will verbalize/demonstrate understanding of assistive devices/modifications for ADL. 3=Patient will improve strength/tolerance for activity to enable patient to perform ADL's. OT Education/Plan Problem List/Assessment Assessment: Impaired Self-Care Skills Discharge Recommendations Plan/Recommendations: Continue POC Therapy Discharge Recommendati: Other, See Comments (home with HC) Equpiment Recommendations-D/C: Hip Kit Treatment Plan/Plan of Care Patient would benefit from OT for education, treatment and training to promote independence in ADL's, mobility, safety and/or upper extremity function for ADL's. Plan of Care: ADL Retraining, Functional Mobility, UE Funct Exercise/Act Treatment Duration: Jun 05, 2022 Frequency: At least 5 of 7 days/Wk (IRF) Estimated Hrs Per Day: 1.5 hours per day Agreement: Yes Rehab Potential: Good Time Start Time: 10:00 Stop Time: 10:30 Total Time Billed (hr/min): 30 Billed Treatment Time 1 visit-ADL 1 (8 min) EX 1 (22 min) KEN JOHN May 29, 2022 10:30
[2022-05-29 20:15] VITALS: BP 158/69
[2022-05-29] MEDS: SIMVASTATIN 20 MG TABLET PO SCH (20:50)
[2022-05-29] MEDS: LATANOPROST 0.005% (XALATAN) OPHTH SOLN 2.5 ML OU SCH (20:50)
[2022-05-30] MEDS ORDERED: CELE100C PO (05:17)
[2022-05-30] MEDS ORDERED: CYAN-41 PO (05:17)
--- NOTE | 2022-05-30 05:18 | D/C HH Face to Face Order ---
D/C Face to Face Orders Reconcile Patient Problems Problems Reviewed?: Yes Instructions for Patient Via [facility], Patient Instructions/FollowUp: pcp 1 week Physician to follow Patient: humble Discharge Diet for Home: No Restrictions Patient Problems: hip replacement Patient Data-Allergies,Ht & Wt Patient Allergies: Coded Allergies: codeine (Verified Allergy, Unknown, VOMITS, 05/08/22) Home Health Need/Face to Face Date of Face to Face: May 30, 2022 Clinical Findings: Generalized weakness and fatigue, Muscle weakness, Pain with ambulation I have seen Pt mojf-nc-bexz: Yes Discharged To: Home Diagnosis/Conditions: hip Patient is Homebound due to: Muscle weakness Homebound Status Due to the above stated illness, injury or surgical procedure (medical condition or diagnosis) and associated clinical findings, the patient is homebound because of his/her inability to leave home except with aid of a supportive device and/or person AND leaving the home requires a considerable and taxing effort or is medically contraindicated. Pt req the following assistanc: Walker Home Health Nursing Orders Home Health Services Order: Nursing Services, Industrial Training Specialist-Evaluate & Treat, Physical Therapy-Evaluate & Treat Home Health Infusion Therapy Line Start Date: May 27, 2022 Certify Stmt I certify that this patient is under my care and that I, a nurse practitioner or a physician; a life enrichment assistant working with me, had a face to face encounter that - meets the physician face to face encounter requirements with this patient as dated. GAB HIGH DO May 30, 2022 05:18
--- NOTE | 2022-05-30 05:19 | Discharge Summary ---
Diagnosis/Chief Complaint Date of Admission May 22, 2022 at 11:15 Date of Discharge Discharge Date: May 30, 2022 Discharge Diagnosis A/P: Right total hip arthroplasty - The patient is being admitted to our comprehensive inpatient rehabilitation facility and can tolerate the intensity of service consisting of at least: 180 minutes of therapy a day, 5 out of 7 days a week. Pain can be managed with increased ambulation and Tramadol HCL as needed. Continue monitoring for opioid-induced constipation As pain continues to decrease, Tylenol or NSAIDs can be implemented instead. Surgical and medical staff to monitor wound healing. Osteoarthritis hypertension hypercholesterolemia pre-glaucoma cataracts GERD Advanced age Anemia Iron def Hyponatremia Plan: PT OT Monitor closely Fall risk 05/23/2022: Iron infusions 05/24/2022: Iron infusions Supportive care 05/25/2022: Will iron infusion due to lack of IV access 05/26/2022: Midline tomorrow 05/27/2022: IV iron Continue aggressive therapy 05/28/2022: Supportive care Iron infusions 05/29/2022: DC tomorrow (1) Primary osteoarthritis of right hip Discharge Summary Discharge Physical Examination Allergies: Coded Allergies: codeine (Verified Allergy, Unknown, VOMITS, 05/08/22) Vitals & I&Os Vital Signs Date Time Temp Pulse Resp B/P (MAP) Pulse Ox O2 Delivery O2 Flow Rate FiO2 05/30/22 10:10 37.0 69 16 158/69 98 Room Air General Appearance: Alert, Oriented X3, Cooperative Respiratory: Clear to Auscultation Cardiovascular: Regular Rate Psych/Mental Status: Mental Status NL Hospital Course Was the Problem List Reviewed?: Yes Uneventful hospital course after she was admitted following a right hip replacement. Patient required iron infusions for postop acute blood loss anemia superimposed on chronic anemia. Bowel function returned back to normal. Pain was controlled with Tylenol. Patient had no decompensation or other major changes during the hospital course and she was deemed stable for discharge with home health after she was able to participate in all therapy and gain independence in ADLs. Labs (last 24 hrs) Laboratory Tests 05/23/22 05:23: White Blood Count 6.3, Red Blood Count 3.13L, Hemoglobin 8.8L, Hematocrit 26L, Mean Corpuscular Volume 83, Mean Corpuscular Hemoglobin 28, Mean Corpuscular Hemoglobin Concent 34, Red Cell Distribution Width 16.8H, Platelet Count 396, Mean Platelet Volume 10.8, Immature Granulocyte % (Auto) 1, Neutrophils (%) (Auto) 80H, Lymphocytes (%) (Auto) 6L, Monocytes (%) (Auto) 9, Eosinophils (%) (Auto) 4, Basophils (%) (Auto) 0, Neutrophils # (Auto) 5.0, Lymphocytes # (Auto) 0.4L, Monocytes # (Auto) 0.6, Eosinophils # (Auto) 0.2, Basophils # (Auto) 0.0, Immature Granulocyte # (Auto) 0.0, Neutrophils % (Manual) 80, Lymphocytes % (Manual) 5, Monocytes % (Manual) 11, Eosinophils % (Manual) 3, Basophils % (Manual) 1, Hypochromasia SLIGHT, Anisocytosis SLIGHT, Microcytosis SLIGHT, Sodium Level 128L, Potassium Level 3.9, Chloride Level 98, Carbon Dioxide Level 22, Anion Gap 8, Blood Urea Nitrogen 10, Creatinine 0.58L, Estimat Glomerular Filtration Rate 86, BUN/Creatinine Ratio 17, Glucose Level 103, Calcium Level 8.3L, Corrected Calcium 9.3, Iron Level 19L, Total Bilirubin 0.5, Aspartate Amino Transf (AST/SGOT) 19, Alanine Aminotransferase (ALT/SGPT) 11, Alkaline Phosphatase 109, Total Protein 5.5L, Albumin 2.7L, Vitamin B12 Level 1558H 05/27/22 06:17: White Blood Count 6.5, Red Blood Count 3.26L, Hemoglobin 9.2L, Hematocrit 27L, Mean Corpuscular Volume 84, Mean Corpuscular Hemoglobin 28, Mean Corpuscular Hemoglobin Concent 34, Red Cell Distribution Width 17.3H, Platelet Count 541H, Mean Platelet Volume 9.8, Immature Granulocyte % (Auto) 2, Neutrophils (%) (Auto) 60, Lymphocytes (%) (Auto) 11L, Monocytes (%) (Auto) 10, Eosinophils (%) (Auto) 16H, Basophils (%) (Auto) 1, Neutrophils # (Auto) 3.9, Lymphocytes # (Auto) 0.7L, Monocytes # (Auto) 0.6, Eosinophils # (Auto) 1.0H, Basophils # (Auto) 0.1, Immature Granulocyte # (Auto) 0.2H, Sodium Level 132L, Potassium Level 3.8, Chloride Level 102, Carbon Dioxide Level 21, Anion Gap 9, Blood Urea Nitrogen 11, Creatinine 0.57L, Estimat Glomerular Filtration Rate 87, BUN/Creatinine Ratio 19, Glucose Level 98, Calcium Level 8.3L, Corrected Calcium 9.2, Total Bilirubin 0.3, Aspartate Amino Transf (AST/SGOT) 28, Alanine Aminotransferase (ALT/SGPT) 22, Alkaline Phosphatase 106, Total Protein 5.7L, Albumin 2.9L Pending Labs Laboratory Tests 05/23/22 05:23: White Blood Count 6.3, Red Blood Count 3.13, Hemoglobin 8.8, Hematocrit 26, Mean Corpuscular Volume 83, Mean Corpuscular Hemoglobin 28, Mean Corpuscular Hemo globin Concent 34, Red Cell Distribution Width 16.8, Platelet Count 396, Mean Platelet Volume 10.8, Immature Granulocyte % (Auto) 1, Neutrophils (%) (Auto) 80, Lymphocytes (%) (Auto) 6, Monocytes (%) (Auto) 9, Eosinophils (%) (Auto) 4, Basophils (%) (Auto) 0, Neutrophils # (Auto) 5.0, Lymphocytes # (Auto) 0.4, Monocytes # (Auto) 0.6, Eosinophils # (Auto) 0.2, Basophils # (Auto) 0.0, Immature Granulocyte # (Auto) 0.0, Neutrophils % (Manual) 80, Lymphocytes % (Manual) 5, Monocytes % (Manual) 11, Eosinophils % (Manual) 3, Basophils % (Manual) 1, Hypochromasia SLIGHT, Anisocytosis SLIGHT, Microcytosis SLIGHT, Sodium Level 128, Potassium Level 3.9, Chloride Level 98, Carbon Dioxide Level 22, Anion Gap 8, Blood Urea Nitrogen 10, Creatinine 0.58, Estimat Glomerular Filtration Rate 86, BUN/Creatinine Ratio 17, Glucose Level 103, Calcium Level 8.3, Corrected Calcium 9.3, Iron Level 19, Total Bilirubin 0.5, Aspartate Amino Transf (AST/SGOT) 19, Alanine Aminotransferase (ALT/SGPT) 11, Alkaline Phosphatase 109, Total Protein 5.5, Albumin 2.7, Vitamin B12 Level 1558 05/27/22 06:17: White Blood Count 6.5, Red Blood Count 3.26, Hemoglobin 9.2, Hematocrit 27, Mean Corpuscular Volume 84, Mean Corpuscular Hemoglobin 28, Mean Corpuscular Hemoglobin Concent 34, Red Cell Distribution Width 17.3, Platelet Count 541, Mean Platelet Volume 9.8, Immature Granulocyte % (Auto) 2, Neutrophils (%) (Auto) 60, Lymphocytes (%) (Auto) 11, Monocytes (%) (Auto) 10, Eosinophils (%) (Auto) 16, Basophils (%) (Auto) 1, Neutrophils # (Auto) 3.9, Lymphocytes # (Auto) 0.7, Monocytes # (Auto) 0.6, Eosinophils # (Auto) 1.0, Basophils # (Auto) 0.1, Immature Granulocyte # (Auto) 0.2, Sodium Level 132, Potassium Level 3.8, Chloride Level 102, Carbon Dioxide Level 21, Anion Gap 9, Blood Urea Nitrogen 11, Creatinine 0.57, Estimat Glomerular Filtration Rate 87, BUN/Creatinine Ratio 19, Glucose Level 98, Calcium Level 8.3, Corrected Calcium 9.2, Total Bilirubin 0.3, Aspartate Amino Transf (AST/SGOT) 28, Alanine Aminotransferase (ALT/SGPT) 22, Alkaline Phosphatase 106, Total Protein 5.7, Albumin 2.9 Discharge Home Medications: Active Scripts Active Vitamin B-12 (Cyanocobalamin (Vitamin B-12)) 1,000 Mcg Tablet 1,000 Mcg PO DAILY @0700 Celebrex (Celecoxib) 100 Mg Capsule 100 Mg PO BID Oxyir Tablet (Oxycodone HCl) 5 Mg Tab 5 Mg PO Q4H PRN 7 Days Aspirin EC (Aspirin) 81 Mg Tablet.dr 81 Mg PO BID WITH MEALS 35 Days Reported Garlic 500 Mg Capsule 500 Mg PO DAILY Calcium (Calcium Carbonate) 600 Mg Calcium (1500 Mg) Tablet 600 Mg PO DAILY Multivitamin 1 Each Tablet 1 Each PO DAILY Xalatan (Latanoprost) 0.005 % Drops 1 Drop OU HS Tramadol HCl 50 Mg Tablet 50 Mg PO Q6H PRN Simvastatin 20 Mg Tablet 20 Mg PO HS Omeprazole 20 Mg Capsule.dr 20 Mg PO BID WITH MEALS Dorzolamide-Timolol Eye Drops (Dorzolamide HCl/Timolol Maleat) 22.3 Mg-6.8 Mg/Ml Drops 1 Drop OU BID Amlodipine Besylate 5 Mg Tablet 5 Mg PO DAILY Instructions to patient/family Please see electronic discharge instructions given to patient. Diagnosis/Problems Diagnosis/Problems (1) Primary osteoarthritis of right hip GAB HIGH DO May 30, 2022 05:19
[2022-05-30] MEDS: CATHETER FLUSH 10 ML SYR IVP SCH (05:36)
[2022-05-30] MEDS: OMEPRAZOLE 20 MG (PriLOSEC) CAP NON-FORMULARY PO SCH (05:36)
[2022-05-30] MEDS: CYANOCOBALAMIN 1,000 MCG (VITAMIN B-12) TABLET PO SCH (06:50)
[2022-05-30] MEDS: MULTIVIT W/MINERALS TAB (THERAGRAN M) PO SCH (06:50)
--- NOTE | 2022-05-30 07:45 | Therapy Team Discharge Summary ---
Therapy Discharge Summary Discharge Recommendations Date of Discharge Physical Therapy Roll Left to Right (QC): 6 Sit to Lying (QC): 6 Lying to Sitting/Side of Bed(Q: 6 Sit to Stand (QC): 6 Chair/Yes-ro-Iuopq Xfer(QC): 6 Toilet Transfer (QC): 5 Car Transfer (QC): 6 Does the Patient Walk: Yes Mode of Locomotion: Walk Anticipated Mode of Locomotion: Walk Walk 10 feet (QC): 6 Walk 50 ft with 2 Turns(QC): 6 Walk 150 ft (QC): 6 Walking 10ft on uneven surface: 6 Distance: 200'x2, 50' Gait Assistive Device: FWW Does the Pt Use a Wheelchair: No Wheel 50 ft with 2 turns (QC): 9 Wheel 150 ft (QC): 9 #of Steps: 12 1 Step (curb) (QC): 6 4 Steps (QC): 6 12 Steps (QC): 6 Walking Assistive Device: Walker Balance Sitting Static: Normal Balance Sitting Dynamic: Normal Balance-Standing Static: Fair Picking up an Object (QC): 6 Occupational Therapy Pt admitted to [facility] s/p R SOPHIA. At [facility], pt was independent with ADLs and functional mobility using a walker. Upon initial evaluation, pt was independent with eating and oral care, required CGA showering and toileting, mod A LE dressing, max A footwear and SBA UE dressing. OT tx focused on increasing BUE Strength and activity tolerance, and increasing safety and independence with AD Ls and functional mobility while maintaining hip precautions. Pt made good progress towards goals, attaining all LTGs. OT recommendations include a hip kit. Pt to discharge home on this date, d/c from OT. Impaired Self-Care Skills Eating (QC): 6 Oral Hygiene (QC): 6 Shower/Bathe Self (QC): 6 Upper Body Dressing (QC): 6 Lower Body Dressing (QC): 6 On/Off Footwear (QC): 6 Toileting Hygiene (QC): 6 (Pt independent with hygiene and clothing manipulation.) PT Filter Operator Goals Filter Operator Goals PT Filter Operator Goals Time Frame: Jun 12, 2022 Roll Left to Right (QC): 6 Sit to Lying (QC): 6 Lying-Sitting on Side/Bed(QC): 6 Sit to Stand (QC): 6 Chair/Krm-yb-Ozsar Xfer(QC): 6 Toilet/Commode Transfer (QC): 6 Car Transfer (QC): 6 Does the Patient Walk: Yes Walk 10 feet (QC): 6 Walk 10ft-Uneven Surface(QC): 6 Walk 50ft with 2 Turns (QC): 6 Walk 150 ft (QC): 6 Wheel 50 feet with 2 turns (QC: 9 Wheel 150 feet: 9 1 Step (curb) (QC): 4 (BA) 4 Steps (QC): 4 (SBA) 12 Steps (QC): 88 Picking up an Object (QC): 4 (SBA using hotel recreational facilities manager) OT Shelter Goals Filter Operator Goals Time Frame: Jun 05, 2022 Acute change in mental status: 0 Inattention: 0 Disorganized thinkin Altered level of consciousness: 0 Eating (QC): 6 (met) Oral Hygiene (QC): 6 (met) Toileting Hygiene (QC): 6 (met) Shower/Bathe Self (QC): 6 (met) Upper Body Dressing (QC): 6 (met) Lower Body Dressing (QC): 6 (met) On/Off Footwear (QC): 6 (With AE. Met) Additional Goals: 1-Demonstrate ADL Tasks, 2-Verbalize Understanding, 3- ImproveStrength/Keaton 1=Demonstrate adherence to instructed precautions during ADL tasks. 2=Patient will verbalize/demonstrate understanding of assistive devices/modifications for ADL. 3=Patient will improve strength/tolerance for activity to enable patient to perform ADL's. LUISA DEWEY OT May 30, 2022 07:45
[2022-05-30 08:00] VITALS: BP 158/69
[2022-05-30] MEDS: CELECOXIB 100 MG (CeleBREX) CAP PO SCH (08:28)
[2022-05-30] MEDS: SENNA W/DOCUSATE (SENOKOT S) TABLET PO SCH (08:28)
[2022-05-30] MEDS: ASPIRIN E.C. 81 MG (ECOTRIN) TAB PO SCH (08:28)
[2022-05-30] MEDS: DORZOLAMIDE/TIMOLOL (COSOPT) 2-0.68% 10 ML BTL OP SCH (08:28)
[2022-05-30] MEDS: amLODIPine 5 MG (NORVASC) TAB PO SCH (08:32)
[2022-05-30 10:10] VITALS: BP 158/69
--- NOTE | 2022-05-30 11:44 | Therapy Team Discharge Summary ---
Therapy Discharge Summary Discharge Recommendations Date of Discharge Physical Therapy Patient came to rehab following a right THR. Upon evaluation patient performs rolling with SBA, supine <-> sit min assist, sit <-> stand and transfers CGA, car transfer CGA, ambulate 200' with a rolling walker with CGA (including 50' with at least 2 turns of 90 degrees and 10' over an uneven surface), went up and down 1 step using a rolling walker with CGA, and picked up an object from the floor using a neonatal intensive care unit nurse with CGA. Patient has been performing bed mobility and transfer training, balance and endurance training, functional strengthening, stair training, gait training, and education. Patient has made good progress and has met all of her press tender long goods goals. Now, patient performs rolling and supine <-> sit with independence, sit <-> stand and transfers independent, car transfer independent, ambulates 225' with a rolling walker with independence (including 50' with at least 2 turns of 90 degrees and 10' over an uneven surface), can go up and down 12 steps using 2 handrails with independence, and can picker feeder an object from the floor using a neonatal intensive care unit nurse with independence. Patient is being discharged from this facility today and will be discharged from PT at this time. Roll Left to Right (QC): 6 Sit to Lying (QC): 6 Lying to Sitting/Side of Bed(Q: 6 Sit to Stand (QC): 6 Chair/Vbf-er-Cbfdk Xfer(QC): 6 Toilet Transfer (QC): 5 Car Transfer (QC): 6 Does the Patient Walk: Yes Mode of Locomotion: Walk Anticipated Mode of Locomotion: Walk Walk 10 feet (QC): 6 Walk 50 ft with 2 Turns(QC): 6 Walk 150 ft (QC): 6 Walking 10ft on uneven surface: 6 Distance: 200'x2, 50' Gait Assistive Device: FWW Does the Pt Use a Wheelchair: No Wheel 50 ft with 2 turns (QC): 9 Wheel 150 ft (QC): 9 #of Steps: 12 1 Step (curb) (QC): 6 4 Steps (QC): 6 12 Steps (QC): 6 Walking Assistive Device: Walker Balance Sitting Static: Normal Balance Sitting Dynamic: Normal Balance-Standing Static: Fair Picking up an Object (QC): 6 Occupational Therapy Impaired Self-Care Skills Eating (QC): 6 Oral Hygiene (QC): 6 Shower/Bathe Self (QC): 6 Upper Body Dressing (QC): 6 Lower Body Dressing (QC): 6 On/Off Footwear (QC): 6 Toileting Hygiene (QC): 6 (Pt independent with hygiene and clothing manipulation.) PT Insulation And Flooring Assembler Goals Longterm Goals PT Longterm Goals Time Frame: Jun 12, 2022 Roll Left to Right (QC): 6 Sit to Lying (QC): 6 Lying-Sitting on Side/Bed(QC): 6 Sit to Stand (QC): 6 Chair/Idd-ab-Wqxsh Xfer(QC): 6 Toilet/Commode Transfer (QC): 6 Car Transfer (QC): 6 Does the Patient Walk: Yes Walk 10 feet (QC): 6 Walk 10ft-Uneven Surface(QC): 6 Walk 50ft with 2 Turns (QC): 6 Walk 150 ft (QC): 6 Wheel 50 feet with 2 turns (QC: 9 Wheel 150 feet: 9 1 Step (curb) (QC): 4 (BA) 4 Steps (QC): 4 (SBA) 12 Steps (QC): 88 Picking up an Object (QC): 4 (SBA using neonatal intensive care unit nurse) OT Longterm Goals Insulation And Flooring Assembler Goals Time Frame: Jun 05, 2022 Acute change in mental status: 0 Inattention: 0 Disorganized thinkin Altered level of consciousness: 0 Eating (QC): 6 (met) Oral Hygiene (QC): 6 (met) Toileting Hygiene (QC): 6 (met) Shower/Bathe Self (QC): 6 (met) Upper Body Dressing (QC): 6 (met) Lower Body Dressing (QC): 6 (met) On/Off Footwear (QC): 6 (With AE. Met) Additional Goals: 1-Demonstrate ADL Tasks, 2-Verbalize Understanding, 3- ImproveStrength/Keaton 1=Demonstrate adherence to instructed precautions during ADL tasks. 2=Patient will verbalize/demonstrate understanding of assistive devices/modifications for ADL. 3=Patient will improve strength/tolerance for activity to enable patient to perform ADL's. GUALBERTO TALBERT PT May 30, 2022 11:44
== END 2022-05-30 10:10 | disposition home health service (06) | DRG 560 ==
PROVIDERS: ADMIT Internal Medicine; ATTEND Internal Medicine
DX: Z47.1 Aftercare following joint replacement surgery (principal); D62 Acute posthemorrhagic anemia; E87.1 Hypo-osmolality and hyponatremia; Z96.641 Presence of right artificial hip joint; D50.9 Iron deficiency anemia, unspecified; E78.00 Pure hypercholesterolemia, unspecified; I10 Essential (primary) hypertension; K21.9 Gastro-esophageal reflux disease without esophagitis; H26.9 Unspecified cataract; Z66 Do not resuscitate; Z88.5 Allergy status to narcotic agent; Z23 Encounter for immunization
CPT/HCPCS: 36410; 36415; 76937; 80053; 82607; 83540; 85007; 85025; 85027; 90662

== ENCOUNTER → 2022-06-06 | Outpatient (CLI) | payer MEDICARE, BC ==
[~2022-06-06] MED LIST changes: +ASPI-1238 PO; +CELE100C PO; +CYAN-41 PO; +OXC5T PO
== END ==
LOC: ORTHO 11:04
PROVIDERS: ATTEND Orthopaedic Surgery
DX: Z47.89 Encounter for other orthopedic aftercare (principal)

== ENCOUNTER → 2022-07-09 | Outpatient (CLI) | payer MEDICARE, BC ==
--- NOTE | 2022-07-09 15:09 | Diagnostic Imaging Report ---
INDICATION: Post hip replacement follow-up. AP and oblique views of the right hip are obtained and compared to 05/02/2022. FINDINGS: There is a new right hip prosthesis compared to the prior study. The device is in good alignment with no sign of fracture or device loosening. There is no unexpected radiopaque foreign body. IMPRESSION: Well-aligned right hip prosthesis with no unexpected radiopaque foreign body. Dictated by: Dictated on workstation # [id number]
== END ==
LOC: ORTHO 10:24
PROVIDERS: ATTEND Orthopaedic Surgery
DX: Z47.89 Encounter for other orthopedic aftercare (principal); Z96.641 Presence of right artificial hip joint
CPT/HCPCS: 20610; 73502

== ENCOUNTER → 2022-08-27 | Outpatient (CLI) | payer MEDICARE, BC ==
--- NOTE | 2022-08-27 18:52 | Diagnostic Imaging Report ---
INDICATION: Knee pain. Four view left knee performed. 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 There is at least small joint effusion present but no opaque loose body. No fracture. IMPRESSION: Severe degenerative changes and medial swelling, small joint effusion, no acute osseous pathology. Dictated by: Dictated on workstation # [id number]
== END ==
LOC: ORTHO 11:01
PROVIDERS: ATTEND Orthopaedic Surgery
DX: M17.12 Unilateral primary osteoarthritis, left knee (principal)
CPT/HCPCS: 73564